=== PATIENT | male | born 1935 | race Caucasian/White ===

== ENCOUNTER 2022-06-28 16:46 | Observation (INO) | payer OTHER ==
--- OUTSIDE RECORDS SUMMARY | 2022-06-28 17:10 | XMS REPORT | Continuity of Care Document ---
:1935 Author Organization [facility] t Address [address] [place] [address] Care Team Providers Name Role Phone Claude Dempsey MD Primary Care Physician CLAUDE DEMPSEY Attending Clinician Unavailable YONATHAN BRASHER Attending Clinician Unavailable Osiris Buchanan MA Attending Clinician Unavailable Carloz Major Attending Clinician Unavailable KELSY RUSS Attending Clinician Unavailable Yonathan Brasher MD Attending Clinician Carloz Major Admitting Clinician Unavailable Payers Payer Name Policy Type Policy Number Effective Date Expiration Date S raiza AETNA MEDICARE PPO [id number] 2021 00:00:00 MEDICARE PLAN PPO [id number] MEDICARE PART B - [id number] MEDICARE Problems Condition Condition Condition Status Onset Resolution Last Treating Co mments Source Name Details Category Date Date Treatment Clinician Date 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 12-08 He alth s s 00:00: 00 Malaise Malaise Disease Active [facility] and and 12-08 Health fatigue fatigue 00:00: 00 Abnormal Abnormal Disease Active 2020-09 [facility] chest chest 0-19 Health x-ray x-ray 00:00: 00 Anemia, Anemia, Disease Active 2020-09 [facility] mild mild 0-19 Health 00:00: 00 Benign Benign Disease Active 2020-09 [facility] essential essential 0-19 Heal th hypertensi hypertensi 00:00: on on 00 BPH BPH Disease Active 2020-09 [facility] without without 0-19 Health urinary urinary 00:00: obstructio obstructio 00 n n Elevated Elevated Disease Active 2020-09 [facility] prostate prostate 019 Health specific specific 00:00: antigen antigen 00 (PSA) (PSA) 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 0-19 He alth yceridemia yceridemia 00:00: 00 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 0 Health to to 00:00: 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 0 He alth ia ia 00:00: 00 Other iron Other iron Disease Active 2020-09 U T deficiency deficiency 0 He alth anemia anemia 00:00: 00 Prediabete Prediabete Disease Active 2020-09 U T s s 0 Health 00:00: 00 Rising PSA Rising PSA Disease Active 2020-09 U T level level 0 Health 00:00: 00 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 9-30 College dysfunctio dysfunctio 00:00: of n n 00 Medicin e After-zahra After-zahra Disease Active [facility] with ract with 3-02 [facility] vision vision 00:00: of obscured obscured 00 Medici n of both of both e eyes eyes Pseudophak Pseudophak Disease Active [facility] ia, right ia, right 2-07 [facility] eye eye 00:00: of 00 Medicin e Pseudophak Pseudophak Disease Active [facility], left ia, left 1-10 Colleg e eye eye 00:00: of 00 Medicin e Allergies, Adverse Reactions, Alerts Allergy Allergy Status Severity Reaction(s) Onset Inactive Treating Comm ents Source Name Type Date Date Clinician No Known DA Active [facility]ie 2[facility]14 Clear s 00:00: Rodriguez 00 [facility] No Known DA Active U 2005-09 [facility] [place] [facility] No Known DA Active [facility] 2005-09 [facility] Drug 0-31 [place] [facility] No Known DA Active U 2005- [facility] Food 0-31 [place] [facility] 00:[facility] No Known DA Active U 2005-09 [facility] Other 0-31 [place] [facility] 00:[facility] No Known DA Active U 2005- [facility] Drug 4-05 [place] [facility] 00:[facility] Social History Social Habit Start Date Stop Date Quantity Comments Source Exposure to Not sure [facility] SARS-CoV-2 (event) Alcohol intake 2021-12-08 2021-12-08 1 /d [facility] 00:00:00 00:00:00 Tobacco use and 2021-06-23 2021-06-23 Smokeless tobacco [facility] exposure 00:00:00 00:00:00 non-user Tobacco Comment 2013-08-15 2013-08-15 stopped 30 yrs [facility] 00:00:00 00:00:00 ago of Medicine Sex Assigned At [birth year] [facility] 00:00:00 00:00:00 Smoking Status Start Date Stop Date Source Ex-smoker 2021-06-23 00:00:00 2021-06-23 00:00:00 [facility] Medications Ordered Filled Start Stop Current Ordering Indication Dosage Frequency Signature Comments Components Source Medication Medication Date Date Medication? Clinician (SIG) Name Name potassium Yes 20meq QD Take 20 [facility] chloride CR 4-07 mEq by Health (Klor-Con 15:29: mouth 1 M20) 20 MEQ 02 (one) time ER tablet each day. Do not crush or chew. furosemide Yes QD Take by [facility] (Lasix) 20 4-07 mouth 1 Health MG tablet 15:29: (one) time 02 each day. potassium Yes 20meq QD Take 20 UT chloride CR 4-07 mEq by Health (Klor-Con 15:29: mouth 1 M20) 20 MEQ 02 (one) time ER tablet each day. Do not crush or chew. furosemide Yes QD Take by UT (Lasix) 20 4-07 mouth 1 Health MG tablet 15:29: (one) time 02 each day. levothyroxi Yes [id number] TAKE 1 UT ne 3-20 TABLET BY [facility] (Synthroid, 00:00: MOUTH Levoxyl) 00 DAILY 125 MCG DUE FOR tablet APPOINTMEN T/BLOODWOR K IN DECEMBER levothyroxi Yes [id number] TAKE 1 UT ne 3-20 TABLET BY [facility] (Synthroid, 00:00: MOUTH Levoxyl) 00 DAILY 125 MCG DUE FOR tablet APPOINTMEN T/BLOODWOR K IN DECEMBER metFORMIN 2021- No [id number] TAKE 1 UT (Glucophage 3-20 06-19 TABLET BY alth ) 500 MG 00:00: 04:59 MOUTH tablet 00 :00 EVERY DAY metFORMIN 2021- No [id number] TAKE 1 UT (Glucophage 3-20 06-19 TABLET BY alth ) 500 MG 00:00: 04:59 MOUTH tablet 00 :00 EVERY DAY simvastatin Yes [id number] TAKE 1 UT (Zocor) 40 2-25 TABLET BY Heal th MG tablet 00:00: MOUTH 00 EVERY DAY. PATIENT NEEDS BLOODWORK IN DECEMBER simvastatin Yes [id number] TAKE 1 UT (Zocor) 40 2-25 TABLET BY Heal th MG tablet 00:00: MOUTH 00 EVERY DAY. PATIENT NEEDS BLOODWORK IN DECEMBER lisinopril Yes [id number] TAKE 1 UT 20 MG 2-03 TABLET BY Health tablet 00:00: MOUTH 00 EVERY DAY DIRECTED lisinopril Yes [id number] TAKE 1 UT 20 MG 2-03 TABLET BY Health tablet 00:00: MOUTH 00 EVERY DAY DIRECTED sildenafil 2020-09 Yes [id number] TAKE 1 UT (Viagra) 2-21 TABLET 1 Health 100 MG 00:00: HOUR PRIOR tablet 00 TO ACTIVITY NEEDED sildenafil 2020-09 Yes [id number] TAKE 1 UT (Viagra) 2-21 TABLET 1 Health 100 MG 00:00: HOUR PRIOR tablet 00 TO ACTIVITY NEEDED docusate 2018-09 Yes 100mg Q2D Take 100 UT sodium 0-29 mg by [facility] (Colace) 00:00: mouth 100 MG 00 every capsule other day. Ferrous 2018-09 Yes 1{tbl} Q2D Take 1 UT Sulfate 0-29 tablet by Health Dried ER 00:00: mouth (Slow Iron) 00 every 160 (50 Fe) other day. MG tablet controlled- release docusate 2018-09 Yes 100mg Q2D Take 100 UT sodium 0-29 mg by [facility] (Colace) 00:00: mouth 100 MG 00 every capsule other day. Ferrous 2018-09 Yes 1{tbl} Q2D Take 1 UT Sulfate 0-29 tablet by Health Dried ER 00:00: mouth (Slow Iron) 00 every 160 (50 Fe) other day. MG tablet controlled- release simvastatin 2018-09 Yes 40mg Take 40 mg [facility] (ZOCOR) 40 0-25 by mouth Colle [facility] MG tablet 19:17: every of 41 evening. Medicin e lisinopril 2018-09 Yes 20mg Take 20 mg [facility] (PRINIVIL, 0-25 by mouth [facility] ZESTRIL) 20 19:17: daily. of MG tablet 41 Medicin e LEVOTHYROXI 2018-09 Yes [facility] NE SODIUM 0-25 [place] 19:17: of 41 Medicin e hydrochloro 2018-09 Yes 25mg Take 25 mg [facility] thiazide 0-25 by mouth [place] (HYDRODIURI 19:17: daily. of L) 25 MG 41 Medicin tablet e XARELTO 15 2018-09 Yes 1{tbl} Take 1 Tab [facility] MG TABS 0-08 by mouth [place] 00:00: daily. of 00 Medicin e levothyroxi Yes TAKE 1 [facility] ne 9-23 TABLET BY [place] (SYNTHROID) 00:00: MOUTH of 125 MCG 00 EVERY DAY Medicin tablet e sildenafil Yes TAKE 1 [facility] citrate 8-22 TABLET 1 [place] (VIAGRA) 00:00: HOUR PRIOR of 100 MG 00 TO Medicin tablet ACTIVITY e NEEDED metformin Yes TAKE 1 [facility] (GLUCOPHAGE 8-07 TABLET BY Col lege ) 500 MG 00:00: MOUTH of tablet 00 EVERY DAY Medicin e rivaroxaban 2016-09 Yes TAKE 1 UT (Xarelto) 0-18 TABLET Health 15 MG 00:00: DAILY tablet 00 rivaroxaban 2016-09 Yes TAKE 1 UT (Xarelto) 0-18 TABLET Health 15 MG 00:00: DAILY tablet 00 Immunizations Ordered Immunization Filled Immunization Date Status Commen ts Source Name Name COVID-19 Moderna & 2020-10-08 Completed [facility] Over Vaccination 00:00:00 COVID-19 Moderna & 2020-10-08 [facility] Over Vaccination 00:00:00 COVID-19 Moderna 18 & 2020-09-10 [facility]pleted [facility] Vaccination 00:00:00 COVID-19 Moderna 18 & 2020-09-10 [facility]pleted [facility] Vaccination 00:00:00 Zoster, Recombinant 2020-07-05 Completed [facility] 00:00:00 Zoster, Recombinant 2020-07-05 Completed [facility] 00:00:00 Tdap 2020-06-23 [facility] 00[facility]00:00 Tdap 2020-06-23 [facility] 00:00:00 Influenza, injectable, 2020-05-24 [facility] quadrivalent, 00:00:00 preservative free (afluria, fluarix, flulaval, fluzone) Influenza, injectable, 2020-05-24 [facility] quadrivalent, 00:00:00 preservative free (afluria, fluarix, flulaval, fluzone) Zoster, Recombinant 2019-10-30 Completed [facility] 00:00:00 Zoster, Recombinant 2019-10-30 Completed [facility] 00:00:00 Pneumococcal 2019-06-23 [facility] Polysaccharide PPV23 00:00:00 Pneumococcal 2019-06-23 [facility] Polysaccharide PPV23 00:00:00 Influenza, seasonal, 2019-06-03 [facility] injectable 00:00:00 Influenza, seasonal, 2019-06-03 [facility] injectable 00:00:00 Influenza, High Dose 2018-06-21 [facility] Seasonal (fluzone) 00:00:00 Influenza, High Dose 2018-06-21 [facility]pleted [facility] Seasonal (fluzone) 00:00:00 Pneumococcal Conjugate 2017-07-05 [facility] PCV 13 00:00:00 Pneumococcal Conjugate 2017-07-05 [facility] PCV 13 00:00:00 Influenza, High Dose 2017-06-04 [facility]pleted [facility] (fluzone) 00:00:00 Influenza, High Dose 2017-06-04 [facility]pleted [facility] (fluzone) 00:00:00 Tdap 2009-12-14 [facility] 00:00:00 Tdap 2009-12-14 [facility] 00:00:00 Zoster, live 2009-06-20 [facility] 00:00:00 micah Adhikari 2009-06-20 Completed [facility] 00:00:00 Vital Signs Vital Name Observation Time Observation Value Comments Source Systolic blood pressure 2021-12-08 16:42:00 128 mm[Hg] [facility] Diastolic blood pressure 2021-12-08 16:42:00 82 mm[Hg] [facility] Body temperature 2021-12-08 16:42:00 36.33 [place] [facility] Body height 2021-12-08 16:42:00 167.6 cm [facility] Body weight 2021-12-08 16:42:00 84.823 kg [facility] BMI 2021-12-08 16:42:00 [facility] This [facility] has no known procedures. Plan of Care Planned Activity Planned Date Details Comments Source Future Scheduled Test MEDICARE AWV [code = [facility] MEDICARE AWV] Medicine Future Scheduled Test TETANUS SHOT (ADULT) [facility] [code = TETANUS SHOT Medicin e (ADULT)] Future Scheduled Test FALL SCREEN [code = [facility] FALL SCREEN] Medicine Future Scheduled Test PNEUMOVAX >=65 [facility] (PPSV23) [code = Medicine PNEUMOVAX >=65 (PPSV23)] Future Scheduled Test PREVNAR >= 65 (PCV13) [facility] [code = PREVNAR >= 65 Medici ne (PCV13)] Future Scheduled Test FLU VACCINE > 6 [facility] MONTHS [code = FLU Medicine VACCINE > 6 MONTHS] Encounters Start End Encounter Admission Attending Care Care Encounter Source Date/Time Date/Time Type Type Clinicians Facility Department ID 2022-09-20 2022-09-20 Outpatient NILA TAMPA [facility] [id number] [place] 10:30:00 10:30:00 [facility] 2022-01-04 2022-01-04 Outpatient EYAD [facility] [id number] [facility] 14:39:12 16:33:14 YONATHAN naranjo of Medicin e 2021-12-26 2021-12-26 Telephone Osiris Buchanan [id number] [place] 00:00:00 00:00:00 Osiris Buchanan [id number] [facility] [id number] [id number] 2021-12-08 2021-12-08 Office JONNY Dempsey [id number] [place] 11:00:00 11:15:00 Visit Claude MLILAN [id number] He alth 9.2.7.2.686 [id number] 2021-10-17 2021-10-17 Outpatient Pedrito HCACL LABO [id number] [facility] 15:20:00 15:20:00 Carloz 73 [facility] 2021-10-17 2021-10-17 Outpatient DANIELLE Major HCATO HCATO [id number] [facility] 10:16:00 10:16:00 Carloz 61 [facility] 2021-10-17 2021-10-17 Outpatient BURAK HenriquezTO RADI [id number] [facility] 09:53:00 09:53:00 Carloz 22 [facility] 2021-08-23 2021-08-23 RefJONNY Montaño [id number] [place] 00:00:00 00:00:00 Claude MILLAN [id number] He alth 9.2.7.2.686 [id number] 2021-07-26 2021-07-26 Emergency KELSY RUSS [facility] [id number] [place] 00:00:00 00:00:[address] 2021-07-25 2021-07-25 JONNY Chaudhry [id number] [place] 00:00:00 00:00:00 Claude MILLAN [id number] He alth 9.2.7.2.686 [id number] 2021-06-23 2021-06-23 Office JONNY Dempsey [id number] [place] 10:01:59 14:15:39 Visit Claude MILLAN [id number] He alth 9.2.7.2.686 [id number] 2019-06-27 2019-06-27 Office EYAD Brasher [id number] [place] [address] 13:45:21 13:50:21 Visit Yonathan Tucker AMBULATOR 350.1.13.21 College Y 0.2.7.2.686 of [id number] Medi tahir 300 e Results Test Description Test Time Test Comments Results Result Comments Source SYNOVIAL FLD CELL CT/DIFF 2021-10-17 18:56:00 Test Item Value Reference Range Interpretation Comme nts SYNOVIAL FLD COLOR (test LIGHT YELLOW LT. YELLOW code = COLSY) SYNOVIAL FLD APPEARANCE CLOUDY CLEAR A (test code = APPSY) SYNOVIAL FLD VOLUME (test 1 mL code = VOLSY) SYNOVIAL FLD WBC (test 628.000 /MM3 0-200 H code = WBCSY) SYNOVIAL FLD RBC (test 1000.000 /mm3 0-2 H NOTE : An automated method is now code = RBCSY) being used to determinesynovial fluid WBC and R BC counts. The differential wi llstill be performed manua lly. SYNOVIAL FLD POLY (test 4 % 0-25 N code = POLYSY) SYNOVIAL FLD LYMPHOCYTE 81 % 0-78 H (test code = LYMPHSY) SYNOVIAL FLD MONOCYTE 14 % 0-71 N (test code = MONOSY) SYNOVIAL FLD OTHER CELL SEE BELOW SYNO VIAL LINING CELL: 1 (test code = OTHERSY) SPECIMEN COMMENT: LEFT KNEE ASPIRATION, 10-17-21 DR CORREA- XR FLUORO NDL 2021-10-17 16:37:00 [facility] 1935 Sex: M Patient Name: MARK ANTHONY SALCIDO Unit No: [id number] EXAMS: CPT CODE: [id number] XR FLUORO NDL [id number] FLUOROSCOPICALLY GUIDED ASPIRATION OF THE LEFT KNEE COMMENT: After informed consent was obtained aneedle was placed in the knee joint with fluoroscopic guidance. Its position was confirmed with an AP radiograph. 0.1 minutes of fluoroscopy time was utilized. 9 mL of clear fluid was aspirated and sent for analysis. No immediate complications were encountered. at 1637 Reported and signed by: Isiah Correa MD CC: Carloz Major Technologist: Tash Zavala RT.(R) Transcribed D/ (1087) [email or web address] [facility] NAME: MARK ANTHONY SALCIDO [address] [facility] PHYS: Carloz Gallegos MD : 1935 AGE: 86 SEX: M [place] [address] LOC: Y.LAB PHONE #: [phone] EXAM DATE: 10/17/2021 STATUS: REG CLI FAX #: [phone] RAD #: [id number] D/C DT PAGE 1 Signed Report Patient Name: MARK ANTHONY SALCIDO Unit No: [id number] EXAMS: CPT CODE: [id number] XR FLUORO NDL [id number] (Continued) Orig Print D/T: S: 10/17/2021 (1640) [facility] NAME: MARK ANTHONY SALCIDO [address] [facility] PHYS: Carloz Gallegos MD : 1935 AGE: 86 SEX: M [place] [address] LOC: Y.LAB PHONE #: [phone] EXAM DATE: 10/17/2021 STATUS: REG CLI FAX #: [phone] RAD #: [id number] D/C DT PAGE 2 Signed Report- XR FLUORO [id number] 16:37:00 [facility] : 1935 Sex: M Patient Name: MARK ANTHONY SALCIDO Unit No: [id number] EXAMS: CPT CODE: [id number] XR FLUORO NDL 68775 FLUOROSCOPICALLY GUIDED ASPIRATION OF THE LEFT KNEE COMMENT: After informed consent was obtained aneedle was placed in the knee joint with fluoroscopic guidance. Its position was confirmed with an AP radiograph. 0.1 minutes of fluoroscopy time was utilized. 9 mL of clear fluid was aspirated and sent for analysis. No immediate complications were encountered. at 1637 Reported and signed by: Isiah Correa MD CC: Carloz HayesiaTechnologist: RT Jose Antonio.(R) Transcribed D/ (9427) tELIJAHL [facility] NAME: MARK ANTHONY SALCIDO [address] [place] [address] PHYS: Carloz Gallegos MD : 1935 AGE:86 SEX: M [place] [address] LOC: Y.RAD PHONE #: [phone] EXAM DATE: 10/17/2021 STATUS: DEP CLI FAX #: [phone] RAD #: [id number] D/C DT PAGE 1 Signed Report Patient Name: MARK ANTHONY SALCIDO Unit No: [id number] EXAMS: CPT CODE: [id number] XR FLUORO NDL 12475 (Continued) Orig Print D/T: S: 10/17/2021 (1640) [facility] NAME: MARK ANTHONY SALCIDO [address] [place] [address] PHYS: Carloz Gallegos MD : 1935 AGE: 86 SEX: M [place] [address] LOC: Y.RAD PHONE #: [phone] EXAM DATE: 10/17/2021 STATUS: DEP CLI FAX #: [phone] RAD #: [id number] D/C DT PAGE 2 Signed ReportCBC W/AUTO DIFF 2021-10-17 12:26:00 Test Item Value Reference Range Interpretation Comments WHITE BLOOD CELL (test code = WBC) 6.4 K/mm3 5.7-10.5 N RED BLOOD CELL (test code = RBC) 4.55 M/mm3 4.2-5.4 N HEMOGLOBIN (test code = HGB) 13.9 g/dL 12-16 N HEMATOCRIT (test code = HCT) 41.0 % 37-47 N MEAN CELL VOLUME (test code = MCV) 90 fL 80-98 N MEAN CELL HGB (test code = MCH) 30.5 pg 27-34 N MEAN CELL HGB CONCENTRATION (test 33.9 g/dL 30.8-34.1 N code = MCHC) RED CELL DISTRIBUTION WIDTH (test 13.5 % 11-16 N code = RDW) PLT (test code = PLT) 216 K/mm3 130-400 N MEAN PLATELET VOLUME (test code = 10.0 fL 8.9-12.1 N MPV) NEUTROPHIL % (test code = NT%) 72.2 % 45-70 H LYMPHOCYTE % (test code = LY%) 16.2 % 20-40 L MONOCYTE % (test code = MO%) 8.6 % 3-10 N EOSINOPHIL % (test code = EO%) 1.9 % 1-5 N BASOPHIL % (test code = BA%) 0.5 % 0.0-1.1 N NEUTROPHIL # (test code = NT#) 4.59 K/mm3 2.00-7.50 N LYMPHOCYTE # (test code = LY#) 1.03 K/mm3 1.50-4.00 L MONOCYTE # (test code = MO#) 0.55 K/mm3 0.2-0.8 N EOSINOPHIL # (test code = EO#) 0.12 K/mm3 0.04-0.4 N BASOPHIL # (test code = BA#) 0.03 K/mm3 0.02-0.10 N MANUAL DIFF REQUIRED (test code = NO MANUAL DIFF MDIFF) NUCLEATED RED BLOOD CELL (test 0 % 0-0 N code = NRBC) SED [id number] 12:26:00 Test Item Value Reference Range Interpretation Comments SED RATE (test code = SEDW) 6 mm/hr 0-15 N C REACTIVE [id number] 11:50:00 Test Item Value Reference Range Interpretation Comments C REACTIVE PROTEIN (test code = < 0.2 mg/dL <0.9 CRP)
[2022-06-28 18:26] LABS: Hematocrit 42.2 % (39.6-49.0); Lymphocytes % 14.3 % (15.3-44.8); MPV 8.5 fL (7.6-11.3)
--- NOTE | 2022-06-28 18:49 | RAD REPORT ---
EXAM DESCRIPTION: CT - Head Brain Wo Cont - 06/28/2022 6:29 pm CLINICAL HISTORY: headache COMPARISON: Head Brain Wo Cont dated 06/09/2022No comparisons TECHNIQUE: Axial 5 mm thick images of the head were obtained without IV contrast. All CT scans are performed using dose optimization technique as appropriate and may include automated exposure control or mA/KV adjustment according to patient size. FINDINGS: No intracranial hemorrhage, mass, edema or shift of mid-line structures. No acute infarcti on changes seen. No cortical edema or sulcal effacement. Moderate severity atrophy present with ventr icles in proportion. Moderate chronic ischemic change seen throughout the cerebral white matter. Manjula rial calcifications are present. Mastoid air cells and visualized portions of the paranasal sinuses are clear. No acute bony findings. IMPRESSION: Moderate severity atrophy moderate chronic ischemic change are present. No acute intracr anial finding
--- NOTE | 2022-06-28 18:55 | RAD REPORT ---
EXAM DESCRIPTION: RAD - Chest Single View - 06/28/2022 6:49 pm CLINICAL HISTORY: CHEST PAIN COMPARISON: None TECHNIQUE: AP portable chest image was obtained 06/28/2022 6:49 pm . FINDINGS: No peripheral mass consolidation. Interstitial markings are mildly prominent probably base line. Cardiomegaly is present without vascular engorgement. No measurable pleural effusion and no pne umothorax. No acute bony abnormality seen. No acute aortic findings suspected. IMPRESSION: Mildly prominent interstitial pattern suspected to be baseline. Cardiomegaly without other findings of significant failure or volume overload.
[2022-06-28 19:04] LABS: Albumin 4.1 g/dL (3.4-5.0); Bilirubin Direct 0.2 mg/dL (0-0.2); Bilirubin Total 0.6 mg/dL (0.2-1.0); Magnesium 2.2 mg/dL (1.8-2.4); Potassium 3.8 mmol/L (3.5-5.1); Protein, Total 7.2 g/dL (6.4-8.2); Troponin High Sensitivity 12.8 pg/mL (<58.9)
--- NOTE | 2022-06-28 19:19 | ER ---
Nurse's Notes [facility] Name: Lauri Lambert Age: 87 yrs Sex: Male : 1935 Arrival Date: 06/28/2022 Time: 16:52 Bed 17 Private MD: Diagnosis: Essential (primary) hypertension;Transient cerebral ischemic attack, unspecified;Bradycardia, unspecified Presentation: 06/28 17:12 Chief complaint: Patient states: High blood pressure x 1 day. Pt reports having an ld1 episode of left arm numbness. Upon arrival to ER pt denies numbness/pain to left arm. Coronavirus screen: At this time, the client does not indicate any symptoms associated with coronavirus-19. Ebola Screen: No symptoms or risks identified at this time. Initial Sepsis Screen: Does the patient meet any 2 criteria? No. Patient's initial sepsis screen is negative. Does the patient have a suspected source of infection? No. Patient's initial sepsis screen is negative. Risk Assessment: Do you want to hurt yourself or someone else? Patient reports no desire to harm self or others. Onset of symptoms was June 28, 2022. 17:12 Method Of Arrival: Ambulatory ld1 17:12 Acuity: HAYDER 3 ld1 Triage Assessment: 17:13 General: Appears in no apparent distress. comfortable, Behavior is calm, cooperative, ld1 appropriate for age. Pain: Denies pain. EENT: No signs and/or symptoms were reported regarding the EENT system. Neuro: Level of Consciousness is awake, alert, obeys commands, Oriented to person, place, time, situation. Cardiovascular: Capillary refill < 3 seconds Patient's skin is warm and dry. Respiratory: Airway is patent Respiratory effort is even, unlabored. GI: Abdomen is flat, obese. : No signs and/or symptoms were reported regarding the genitourinary system. Derm: No signs and/or symptoms reported regarding the dermatologic system. Musculoskeletal: Reports numbness in left arm. Historical: - Allergies: 17:13 No Known Allergies; ld1 - Home Meds: 17:13 Xarelto 15 mg oral tab 1 tab once daily [Active]; ld1 18:27 metformin 500 mg Oral tab 1 tab daily [Active]; docusate sodium 100 mg Oral cap 1 cap db once daily for constipation [Active]; lisinopril 20 mg Oral tab 1 tab once daily [Active]; fexofenadine 180 mg Oral tab 1 tab [Active]; Viagra 100 mg Oral tab 1 tab [Active]; ferrous sulfate 325 mg (65 mg iron) Oral TbEC daily [Active]; rivaroxaban 15 mg oral tab 1 tab once daily [Active]; simvastatin 40 mg Oral tab once daily [Active]; levothyroxine 125 mcg tab 1 tab once daily [Active]; - PMHx: 17:13 Hypertensive disorder; Diabetes mellitus; ld1 - PSHx: 17:13 None; ld1 - Immunization history:: Adult Immunizations up to date, Client reports receiving the 2nd dose of the Covid vaccine. - Social history:: Smoking status: Patient denies any tobacco usage or history of. Patient/guardian denies using alcohol. Screenin:39 Abuse screen: Denies threats or abuse. Denies injuries from another. Nutritional db screening: No deficits noted. Tuberculosis screening: No symptoms or risk factors identified. Fall Risk None identified. No fall in past 12 months (0 pts). No secondary diagnosis (0 pts). No IV (0 pts). Ambulatory Aid- None/Bed Rest/Nurse Assist (0 pts). Gait- Normal/Bed Rest/Wheelchair (0 pts) Mental Status- Oriented to own ability (0 pts). Total Hager Fall Scale indicates No Risk (0-24 pts). Assessment: 17:55 Reassessment: Patient appears in no apparent distress at this time. Patient is alert, db oriented x 3, equal unlabored respirations, skin warm/dry/pink. states came in today due to BP elevated. General: Appears in no apparent distress. comfortable, Behavior is calm, cooperative, appropriate for age, quiet. Pain: Denies pain. Neuro: No deficits noted. Level of Consciousness is awake, alert, obeys commands, Oriented to person, place, time, situation, Appropriate for age. Cardiovascular: No deficits noted. Respiratory: No deficits noted. Airway is patent Respiratory effort is even, unlabored, Respiratory pattern is regular, symmetrical. GI: No deficits noted. No signs and/or symptoms were reported involving the gastrointestinal system. : No deficits noted. No signs and/or symptoms were reported regarding the genitourinary system. EENT: No deficits noted. No signs and/or symptoms were reported regarding the EENT system. Derm: No deficits noted. No signs and/or symptoms reported regarding the dermatologic system. Musculoskeletal: No deficits noted. No signs and/or symptoms reported regarding the musculoskeletal system. 18:30 Reassessment: Patient appears in no apparent distress at this time. Patient and/or db family updated on plan of care and expected duration. Pain level reassessed. Patient is alert, oriented x 3, equal unlabored respirations, skin warm/dry/pink. Patient states feeling better. 19:29 Reassessment: Patient appears in no apparent distress at this time. No changes from lg3 previously documented assessment. Patient and/or family updated on plan of care and expected duration. Pain level reassessed. Patient is alert, oriented x 3, equal unlabored respirations, skin warm/dry/pink. 20:37 Reassessment: Patient appears in no apparent distress at this time. No changes from lg3 previously documented assessment. Patient and/or family updated on plan of care and expected duration. Pain level reassessed. Patient is alert, oriented x 3, equal unlabored respirations, skin warm/dry/pink. Patient states feeling better. Vital Signs: 17:12 BP 218 / 91; Pulse 64; Resp 18; Temp 98.0(TE); Pulse Ox 100% on R/A; Weight 88.45 kg; ld1 Height 5 ft. 8 in. (172.72 cm); Pain 0/10; 17:39 BP 213 / 95; Pulse 44; Resp 18; Pulse Ox 96% on R/A; Pain 0/10; db 17:55 BP 199 / 111; Pulse 50; Resp 20; Pulse Ox 98% ; db 18:30 BP 195 / 75; Pulse 52; Resp 18; Pulse Ox 97% ; db 19:32 BP 205 / 84; Pulse 53; Resp 20; Pulse Ox 97% on R/A; lg3 20:37 BP 184 / 95; Pulse 70; Resp 21; Pulse Ox 98% on R/A; lg3 17:12 Body Mass Index 29.65 (88.45 kg, 172.72 cm) ld1 17:39 Dr. Grey at bedside db Vitals: 17:39 Cardiac Rhythm Assessment Sinus ronak. db NIH Stroke Scale Scores: 17:35 NIHSS Score: 0 ms3 17:45 NIHSS Score: 0 db ED Course: 16:52 Patient arrived in ED. mr 17:13 Triage completed. ld1 17:14 Arm band placed on right wrist. ld1 17:38 Deisi Lee, SAVANA is Primary Nurse. db 17:39 Patient has correct armband on for positive identification. Placed in gown. Bed in low db position. Call light in reach. Side rails up X 1. 17:45 Gustavo Grey DO is Attending Physician. ms3 18:15 Inserted saline lock: 20 gauge in right antecubital area, using aseptic technique. db Blood collected. 18:25 Warm blanket given. db 18:[address] db 18:31 CT Head Brain wo Cont In Process Unspecified. EDMS 18:50 XRAY Chest (1 view) In Process Unspecified. EDMS 19:17 Lauri Katz MD is Hospitalizing Provider. ms3 19:17 Report given to SAVANA Willis. db 19:29 SARS RAPID Sent. lg3 19:42 No provider procedures requiring assistance completed. Patient admitted, IV remains in lg3 place. No redness/swelling at site. Administered Medications: 19:42 Drug: hydrALAZINE 10 mg Route: IVP; Site: right antecubital; lg3 20:40 Follow up: Response: No adverse reaction; Blood pressure is lowered lg3 22:32 Drug: Tylenol 500 mg Route: PO; lg3 23:30 Follow up: Response: (VIS) Vaccine information sheet provided today. Questions and/or lg3 concerns addressed. VIS edition date: Apr 08, 2021.; Marked relief of symptoms Medication: 17:39 VIS not applicable for this client. db Outcome: 19:19 Decision to Hospitalize by Provider. ms3 06/29 16:35 Patient left the ED. mb8 NIH Stroke Scale - NIH Stroke Score Date: 06/28/2022 Time: 17:35 Total Score = 0 1a. Level of Consciousness (LOC) - 0(Alert) 1b. Level of Consciousness (LOC) (Month \T\ Age) - 0(Both) 1c. LOC Commands (Open \T\ Closes Eyes/Embosser Operator) - 0(Both) 2. Best Gaze (Lateral Gaze Paresis) - 0(Normal) 3. Visual Field Loss - 0(No visual loss) 4. Facial Palsy - 0(Normal) 5a. Left Arm: Motor (10-second hold) - 0(No drift) 5b. Right Arm: Motor (10-second hold) - 0(No drift) 6a. Left Leg: Motor (5-second hold - always test supine) - 0(No drift) 6b. Right Leg: Motor (5-second hold - always test supine) - 0(No drift) 7. Limb Ataxia (finger/nose \T\ heel/dean - test with eyes open) - 0(Absent) 8. Sensory Loss (pinprick arms/legs/face) - 0(Normal) 9. Best Language: Aphasia (description/naming/reading) - 0(No aphasia) 10. Dysarthria (speech clarity - read or repeat words) - 0(Normal) 11. Extinction and Inattention (visual/tactile/auditory/spatial/personal) - 0(No abnormality) Initials: ms3 NIH Stroke Scale - NIH Stroke Score Date: 06/28/2022 Time: 17:45 Total Score = 0 1a. Level of Consciousness (LOC) - 0(Alert) 1b. Level of Consciousness (LOC) (Month \T\ Age) - 0(Both) 1c. LOC Commands (Open \T\ Closes Eyes/Embosser Operator) - 0(Both) 2. Best Gaze (Lateral Gaze Paresis) - 0(Normal) 3. Visual Field Loss - 0(No visual loss) 4. Facial Palsy - 0(Normal) 5a. Left Arm: Motor (10-second hold) - 0(No drift) 5b. Right Arm: Motor (10-second hold) - 0(No drift) 6a. Left Leg: Motor (5-second hold - always test supine) - 0(No drift) 6b. Right Leg: Motor (5-second hold - always test supine) - 0(No drift) 7. Limb Ataxia (finger/nose \T\ heel/dean - test with eyes open) - 0(Absent) 8. Sensory Loss (pinprick arms/legs/face) - 0(Normal) 9. Best Language: Aphasia (description/naming/reading) - 0(No aphasia) 10. Dysarthria (speech clarity - read or repeat words) - 0(Normal) 11. Extinction and Inattention (visual/tactile/auditory/spatial/personal) - 0(No abnormality) Initials: db Signatures: Dispatcher [employer] Yessi Jameson Lacie, RN RN lg3 Gustavo Grey, DO DO ms3 Marta Moody RN RN ld1 Rg Rodriguez, RN RN mb8 Deisi Lee RN RN db Corrections: (The following items were deleted from the chart) 06/28 17:15 17:12 Pulse 64bpm; Resp 18bpm; Pulse Ox 100% RA; Temp 98.0F Temporal; 88.45 kg; ld1 Height 5 ft. 8 in.; BMI: 29.6; Pain 0/10; ld1 18:25 17:39 BP 213 / 95; Pulse 44bpm; Resp 18bpm; Pulse Ox 96% RA; Pain 0/10; db db 20:40 20:37 BP 184 / 95; Pulse 70bpm; Resp 21bpm; Pulse Ox 96% RA; lg3 lg3
--- NOTE | 2022-06-28 19:20 | EDPHYS ---
Physician Documentation [facility] Name: Lauri Lambert Age: 87 yrs Sex: Male : 1935 Arrival Date: 06/28/2022 Time: 16:52 Bed 17 Private MD: ED Physician Gustavo Grey HPI: 06/28 19:27 This 87 yrs old Male presents to ER via Ambulatory with complaints of High Blood ms3 Pressure. 19:27 The patient has elevated blood pressure and discovered this at home, with a home ms3 device. Onset: The symptoms/episode began/occurred this morning. Modifying factors: The symptoms are aggravated by nothing, The symptoms are alleviated by nothing. Associated signs and symptoms: Pertinent positives: chest pain, headache, Brief left hand numbness. Severity of symptoms: At its worst the blood pressure was severe, this morning, in the emergency department the blood pressure is unchanged. 87 yo male with pmh of htn, dm presents for htn that was noted this am. Patient states this AM he had left arm numbness. Patient also notes that 10 min prior to arrival in the ED he had right finger numbness. Patient denies alleviating or inciting factors.. Historical: - Allergies: 17:13 No Known Allergies; ld1 - Home Meds: 17:13 Xarelto 15 mg oral tab 1 tab once daily [Active]; ld1 18:27 metformin 500 mg Oral tab 1 tab daily [Active]; docusate sodium 100 mg Oral cap 1 cap db once daily for constipation [Active]; lisinopril 20 mg Oral tab 1 tab once daily [Active]; fexofenadine 180 mg Oral tab 1 tab [Active]; Viagra 100 mg Oral tab 1 tab [Active]; ferrous sulfate 325 mg (65 mg iron) Oral TbEC daily [Active]; rivaroxaban 15 mg oral tab 1 tab once daily [Active]; simvastatin 40 mg Oral tab once daily [Active]; levothyroxine 125 mcg tab 1 tab once daily [Active]; - PMHx: 17:13 Hypertensive disorder; Diabetes mellitus; ld1 - PSHx: 17:13 None; ld1 - Immunization history:: Adult Immunizations up to date, Client reports receiving the 2nd dose of the Covid vaccine. - Social history:: Smoking status: Patient denies any tobacco usage or history of. Patient/guardian denies using alcohol. ROS: 19:27 Constitutional: Negative for fever, and chills. ENT: Negative for injury, pain, and ms3 discharge, Neck: Negative for injury, pain, and swelling. 19:27 Respiratory: Negative for shortness of breath, cough, wheezing, and pleuritic chest pain, Abdomen/GI: Negative for abdominal pain, nausea, vomiting, diarrhea, and constipation, MS/Extremity: Negative for injury and deformity, Skin: Negative for injury, rash, and discoloration. 19:27 Cardiovascular: Positive for chest pain. 19:27 Neuro: Positive for numbness. 19:27 All other systems are negative. Exam: 18:21 ECG was reviewed by the Attending Physician. ms3 19:27 Constitutional: This is a well developed, well nourished patient who is awake, alert, ms3 and in no acute distress. Head/Face: Normocephalic, atraumatic. ENT: Nares patent. No nasal discharge, no septal abnormalities noted. Tympanic membranes are normal and external auditory canals are clear. Oropharynx with no redness, swelling, or masses, exudates, or evidence of obstruction, uvula midline. Mucous membranes moist. Neck: Trachea midline, no cervical lymphadenopathy. Supple, full range of motion without nuchal rigidity, or vertebral point tenderness. No Meningismus. Chest/axilla: Normal chest wall appearance and motion. Nontender with no deformity. Respiratory: Lungs have equal breath sounds bilaterally, clear to auscultation and percussion. No rales, rhonchi or wheezes noted. No increased work of breathing, no retractions or nasal flaring. Abdomen/GI: Soft, non-tender, with normal bowel sounds. No distension or tympany. No guarding or rebound. No evidence of tenderness throughout. Skin: Warm, dry with normal turgor. Normal color with no rashes, no lesions, and no evidence of cellulitis. Vital Signs: 17:12 BP 218 / 91; Pulse 64; Resp 18; Temp 98.0(TE); Pulse Ox 100% on R/A; Weight 88.45 kg; ld1 Height 5 ft. 8 in. (172.72 cm); Pain 0/10; 17:39 BP 213 / 95; Pulse 44; Resp 18; Pulse Ox 96% on R/A; Pain 0/10; db 17:55 BP 199 / 111; Pulse 50; Resp 20; Pulse Ox 98% ; db 18:30 BP 195 / 75; Pulse 52; Resp 18; Pulse Ox 97% ; db 19:32 BP 205 / 84; Pulse 53; Resp 20; Pulse Ox 97% on R/A; lg3 20:37 BP 184 / 95; Pulse 70; Resp 21; Pulse Ox 98% on R/A; lg3 17:12 Body Mass Index 29.65 (88.45 kg, 172.72 cm) ld1 17:39 Dr. Grey at bedside db NIH Stroke Scale Scores: 17:35 NIHSS Score: 0 ms3 17:45 NIHSS Score: 0 db MDM: 17:35 Differential diagnosis: hypertensive crisis, Malignant HTN, CVA, intracerebral ms3 hemorrhage. Data reviewed: vital signs, nurses notes, lab test result(s), EKG, radiologic studies, and as a result, I will admit patient. Data interpreted: secured entrance monitor: rate is 50 beats/min, rhythm is junctional rhythm, with no ectopy, Interpretation: bradycardia. Counseling: I had a detailed discussion with the patient and/or guardian regarding: the historical points, exam findings, and any diagnostic results supporting the discharge/admit diagnosis, lab results, radiology results, the need for further work-up and treatment in the hospital. ED course: Discussed case with Soy Murcia NP, and he accepts patient on behalf of the hospitalist group. Discussed necessity of admission with patient and his daughters. They understand/ agree with plan. Patient remains in stable condition.. 18:25 Patient medically screened. ms3 06/28 17:59 Order name: Basic Metabolic Panel; Complete Time: 19:06 ms3 06/28 17:59 Order name: CBC with Diff; Complete Time: 19:03 ms3 06/28 17:59 Order name: LFT's; Complete Time: 19:06 ms3 06/28 17:59 Order name: Magnesium; Complete Time: 19:06 ms3 06/28 17:59 Order name: Troponin HS; Complete Time: 19:06 ms3 06/28 19:16 Order name: SARS RAPID ms3 06/29 00:10 Order name: Troponin High Sensitivity EDMS 06/29 02:42 Order name: CBC with Automated Diff EDMS 06/29 02:57 Order name: Basic Metabolic Panel EDMS 06/29 02:57 Order name: Troponin High Sensitivity EDMS 06/29 02:57 Order name: Lipid Profile EDMS 06/29 02:57 Order name: T4 Free EDMS 06/29 02:57 Order name: Magnesium EDMS 06/29 02:57 Order name: Thyroid Stimulating Hormone EDMS 06/28 17:59 Order name: XRAY Chest (1 view); Complete Time: 19:03 ms3 06/28 17:59 Order name: EKG; Complete Time: 18:01 ms3 06/28 17:59 Order name: Cardiac monitoring; Complete Time: 18:23 ms3 06/28 17:59 Order name: EKG - Nurse/Tech; Complete Time: 18:23 ms3 06/28 17:59 Order name: IV Saline Lock; Complete Time: 18:23 ms3 06/28 17:59 Order name: Labs collected and sent; Complete Time: 18:24 ms3 06/28 17:59 Order name: O2 Per Protocol; Complete Time: 18:23 ms3 06/28 17:59 Order name: O2 Sat Monitoring; Complete Time: 18:23 ms3 06/28 17:59 Order name: CT Head Brain wo Cont; Complete Time: 19:03 ms3 06/29 07:31 Order name: US EDMS 06/29 11:19 Order name: MRI EDOH EC:21 Rate is 47 beats/min. Rhythm is regular. QRS [place] is Normal. QRS interval is normal. QT ms3 interval is normal. Clinical impression: No evidence of ischemia. Interpreted by me. Reviewed by me. Administered Medications: 19:42 Drug: hydrALAZINE 10 mg Route: IVP; Site: right antecubital; lg3 20:40 Follow up: Response: No adverse reaction; Blood pressure is lowered lg3 22:32 Drug: Tylenol 500 mg Route: PO; lg3 23:30 Follow up: Response: (VIS) Vaccine information sheet provided today. Questions and/or lg3 concerns addressed. VIS edition date: Apr 08, 2021.; Marked relief of symptoms Disposition Summary: 06/28/22 19:19 Hospitalization Ordered Hospitalization Status: Observation ms3 Provider: Lauri Katz ms3 Condition: Stable ms3 Problem: new ms3 Symptoms: are unchanged ms3 Bed/Room Type: Standard ms3 Location: [facility] ER HOLD(10/26/22 21:00) eb1 Room Assignment: ERHOLD-(06/28/22 21:00) eb1 Diagnosis - Essential (primary) hypertension ms3 - Transient cerebral ischemic attack, unspecified ms3 - Bradycardia, unspecified ms3 Forms: - Medication Reconciliation Form ms3 - SBAR form ms3 NIH Stroke Scale - NIH Stroke Score Date: 06/28/2022 Time: 17:35 Total Score = 0 1a. Level of Consciousness (LOC) - 0(Alert) 1b. Level of Consciousness (LOC) (Month \T\ Age) - 0(Both) 1c. LOC Commands (Open \T\ Closes Eyes/Tenter Frame Operator) - 0(Both) 2. Best Gaze (Lateral Gaze Paresis) - 0(Normal) 3. Visual Field Loss - 0(No visual loss) 4. Facial Palsy - 0(Normal) 5a. Left Arm: Motor (10-second hold) - 0(No drift) 5b. Right Arm: Motor (10-second hold) - 0(No drift) 6a. Left Leg: Motor (5-second hold - always test supine) - 0(No drift) 6b. Right Leg: Motor (5-second hold - always test supine) - 0(No drift) 7. Limb Ataxia (finger/nose \T\ heel/dean - test with eyes open) - 0(Absent) 8. Sensory Loss (pinprick arms/legs/face) - 0(Normal) 9. Best Language: Aphasia (description/naming/reading) - 0(No aphasia) 10. Dysarthria (speech clarity - read or repeat words) - 0(Normal) 11. Extinction and Inattention (visual/tactile/auditory/spatial/personal) - 0(No abnormality) Initials: ms3 NIH Stroke Scale - NIH Stroke Score Date: 06/28/2022 Time: 17:45 Total Score = 0 1a. Level of Consciousness (LOC) - 0(Alert) 1b. Level of Consciousness (LOC) (Month \T\ Age) - 0(Both) 1c. LOC Commands (Open \T\ Closes Eyes/Tenter Frame Operator) - 0(Both) 2. Best Gaze (Lateral Gaze Paresis) - 0(Normal) 3. Visual Field Loss - 0(No visual loss) 4. Facial Palsy - 0(Normal) 5a. Left Arm: Motor (10-second hold) - 0(No drift) 5b. Right Arm: Motor (10-second hold) - 0(No drift) 6a. Left Leg: Motor (5-second hold - always test supine) - 0(No drift) 6b. Right Leg: Motor (5-second hold - always test supine) - 0(No drift) 7. Limb Ataxia (finger/nose \T\ heel/dean - test with eyes open) - 0(Absent) 8. Sensory Loss (pinprick arms/legs/face) - 0(Normal) 9. Best Language: Aphasia (description/naming/reading) - 0(No aphasia) 10. Dysarthria (speech clarity - read or repeat words) - 0(Normal) 11. Extinction and Inattention (visual/tactile/auditory/spatial/personal) - 0(No abnormality) Initials: db Signatures: Dispatcher [employer] EDMS Cory Krause MD MD rn Attema, Lee, CLINICAL HAEMATOLOGIST-C CLINICAL HAEMATOLOGIST-Cla1 Lurdes Oliveira, RN RN eb1 Alba Salgado RN RN lg3 Gustavo Grey, DO DO ms3 Marta Moody, RN RN ld1 Deisi Lee, RN RN db Corrections: (The following items were deleted from the chart) 21:00 19:19 Telemetry/MedSurg (observation) ms3 eb1 21:00 19:19 ms3 eb1
[2022-06-28] MEDS ORDERED: HYDRALAZINE HCL 20 MG/ML VIAL ONE (19:38)
[2022-06-28 19:58] LABS: SARS-CoV-2 Antigen Rapid Res Negative (Negative)
--- NOTE | 2022-06-28 21:54 | P.HP ---
Certification for Inpatient Patient admitted to: Observation With expected LOS: <2 Midnights Patient will require the following post-hospital care: None Practitioner: I am a practitioner with admitting privileges, knowledge of patient current condition, hospital course, and medical plan of care. Services: Services provided to patient in accordance with Admission requirements found in Title 42 Section 412.3 of the Code of Federal Regulations <Soy Murcia - Last Filed: 06/28/22 21:51> Patient History Date of Service: 06/28/22 Reason for admission: Chest pain/paresthesias History of Present Illness: 87-year-old male with history of atrial fibrillation on chronic anticoagulation, hypertension, hyperlipidemia presents the emergency department for left upper extremity paresthesia/chest pain. He reports that earlier today around noon he was driving his vehicle when he began to experience numbness of his left arm, he is not sure if he experienced any chest heaviness or tightness but did mention it when questioned. He was evaluated here in the emergency department his labs were significant for normal initial high-sensitivity troponin EKG showing atrial fibrillation with slow ventricular response rate in the 50s to 60s. He was hypertensive with blood pressures around 170-180 systolic chest x-ray was performed which revealed mildly prominent interstitial pattern suspected to be baseline. Cardiomegaly without other findings significant failure or volume overload. CT head was also performed which demonstrated moderate severity atrophy and moderate chronic ischemic changes are present. No acute intracranial finding. Patient's NIH score currently is 0 he has no focal neurological deficits on exam. ED provider wishes to admit under observation for ACS rule out/possible TIA. - Past Medical/Surgical History -: A. fib -: Hypertension -: Hyperlipidemia -: Prediabetes -: Knee surgery -: Appendectomy Psychosocial/ Personal History: Patient lives at home alone, family visits frequently he ambulates without any assistive devices typically but occasionally uses a cane. - Family History Father -: Cancer - Social History Smoking Status: Never smoker Alcohol use: Yes CD- Drugs: No Caffeine use: Yes Place of Residence: Home <Soy Murcia - Last Filed: 06/28/22 21:51> Date of Service: 06/29/22 <Lauri Katz - Last Filed: 06/29/22 19:25> Review of Systems 10-point ROS is otherwise unremarkable Cardiovascular: Chest Pain Neurological: Numbness, As per HPI <Soy Murcia - Last Filed: 06/28/22 21:51> Physical Examination - Physical Exam General: Alert, In no apparent distress, Oriented x3 HEENT: Atraumatic, PERRLA, Mucous membr. moist/pink, EOMI, Sclerae nonicteric Neck: Supple, 2+ carotid pulse no bruit, No LAD, Without JVD or thyroid abnormality Respiratory: Clear to auscultation bilaterally, Normal air movement Cardiovascular: Regular rate/rhythm, Normal S1 S2 Capillary refill: <2 Seconds Gastrointestinal: Normal bowel sounds, No tenderness Musculoskeletal: No tenderness Integumentary: No rashes Neurological: Normal gait, Normal speech, Normal strength at 5/5 x4 extr, Normal tone, Sensation intact, Cranial nerves 3-12 intact, Normal affect - Studies Laboratory Data (last 24 hrs) 06/28/22 18:15: WBC 7.30, Hgb 14.3, Hct 42.2, Plt Count 183 06/28/22 18:15: Sodium 138, Potassium 3.8, BUN 12, Creatinine 1.25, Glucose 116 H, Magnesium 2.2, Total Bilirubin 0.6, AST 13 L, ALT 19, Alkaline Phosphatase 68 <CarrollmustaphaSoy Jj - Last Filed: 06/28/22 21:51> Assessment and Plan - Plan Assessment: Chest pain rule out ACS Left upper extremity paresthesias that resolved possible TIA Atrial fibrillation on chronic anticoagulation therapy Hypertension Hyperlipidemia Plan: Chest pain rule out ACS: Trend troponins, monitor on telemetry, cardiology consult in place. Will obtain echocardiogram. Appreciate further input from cardiology. Continue patient's Xarelto. He is currently chest pain-free initial troponin was negative. Left upper extremity paresthesias that resolved possible TIA: Echocardiogram, carotid Doppler, MRI brain without contrast ordered and pending. Symptoms resolved lasted for "a few minutes". NIH 0. Atrial fibrillation on chronic anticoagulation therapy: Continue Xarelto, monitor on telemetry. Hypertension: Continue home medications. Hyperlipidemia:Continue home medications. DVT PPX: Continue Xarelto Code status: Full Discharge Plan: Home Plan to discharge in: 24 Hours - Advance Directives Does patient have a Living Will: No Does patient have a Durable POA for Healthcare: No - Code Status/Comfort Care Code Status Assessed: Yes (Full code) Critical Care: No Time Spent Managing Pts Care (In Minutes): 70 <Soy Murcia - Last Filed: 06/28/22 21:51> Physician Review: Patient Assessed, Agree with Above Assessment and Plan <Lauri Katz - Last Filed: 06/29/22 19:25>
[2022-06-28] MEDS ORDERED: ONDANSETRON 4 MG/2 ML VIAL IV PRN (22:24)
[2022-06-28] MEDS ORDERED: ACETAMINOPHEN 500 MG TAB ONE (22:28)
[2022-06-28 22:38] VITALS: O2SAT 98; BMI 29.6
[2022-06-29 02:41] LABS: Hematocrit 38.3 % (39.6-49.0); Lymphocytes % 15.7 % (15.3-44.8); MCV 96.3 fL (80-100); MPV 9.1 fL (7.6-11.3); RBC Red Blood Cell Count 3.98 M/uL (4.33-5.43)
[2022-06-29 02:56] LABS: Potassium 3.5 mmol/L (3.5-5.1); Thyroid Stimulating Hormone 0.998 uIU/mL (0.360-3.740); Troponin High Sensitivity 16.2 pg/mL (<58.9)
[2022-06-29] MEDS ORDERED: LEVOTHYROXINE SOD 0.125 MG TAB PO SCH (06:30)
[2022-06-29] MEDS ORDERED: lisinopriL 20 MG TAB ONE (07:28)
--- NOTE | 2022-06-29 07:31 | RAD REPORT ---
EXAM DESCRIPTION: - CP - 06/28/2022 10:50 pm CLINICAL HISTORY: Chest pain, paresthesias, AF COMPARISON: No comparisons TECHNIQUE: Real-time sonographic evaluation of both carotid systems was performed. Doppler interroga tion was performed with waveform tracing bilaterally. FINDINGS: Normal high resistance waveforms are noted in both external carotid arteries. The common c arotid arteries and internal carotid arteries show normal low resistance waveforms. Hard plaque present at both carotid bifurcations. Peak systolic and end diastolic velocity values and the ICA/CCA ratios are in the non-hemodynamically significant range. Antegrade flow seen in both vertebral arteries. IMPRESSION: Hard plaque at both carotid bifurcations. No evidence of a hemodynamically significant stenosis.
[2022-06-29] MEDS ORDERED: PNEUMOCOCCAL VACCINE 0.5 ML IMVAC ONE (08:00)
[2022-06-29] MEDS ORDERED: lisinopriL 20 MG TAB PO SCH (09:00)
[2022-06-29] MEDS ORDERED: HYDRALAZINE HCL 20 MG/ML VIAL IV ONE ×4 (09:51→14:00)
[2022-06-29] MEDS ORDERED: HYDRALAZINE HCL 20 MG/ML VIAL ONE ×2 (09:59→13:56)
[2022-06-29] MEDS ORDERED: POTASSIUM CL SA 10 MEQ TAB PO ONE (10:00)
--- NOTE | 2022-06-29 11:18 | RAD REPORT ---
EXAM DESCRIPTION: MRI - Brain Wo Cont - 06/29/2022 10:17 am CLINICAL HISTORY: Chest pain, paresthesias, AF COMPARISON: No comparisonsNo comparisons TECHNIQUE: Sagittal T1-weighted images were obtained along with PD/heavily T2-weighted and T2-FLAIR images. Axial DWI and ADC mapping sequences were also obtained along with coronal heavily T2-weighted images were obtained. FINDINGS: No intracranial hemorrhage, mass or acute infarction. There is no edema or shift of midlin e structures. No extra-axial fluid collections. Signal voids are seen as a normal finding in the joseph r intracranial vessels. Mild age advanced cerebral atrophy and chronic small vessel ischemic changes. Partially empty sella, a normal variant. Cerebral atrophy is primarily frontotemporal. Mastoid air cells and paranasal sinuses are clear. IMPRESSION: No acute intracranial abnormality. Specifically, no evidence of acute infarct. Mild placement coordinator narcisa small vessel ischemic changes and cerebral atrophy.
[2022-06-29] MEDS ORDERED: ONDANSETRON 4 MG/2 ML VIAL ONE (12:56)
[2022-06-29] MEDS ORDERED: ACETAMINOPHEN 325 MG TABLET ONE (13:57)
[2022-06-29] MEDS ORDERED: ACETAMINOPHEN 325 MG TABLET PO PRN (14:00)
[2022-06-29 14:06] VITALS: TEMP 97.9
--- NOTE | 2022-06-29 14:17 | ECHO ---
HEIGHT: 5 ft 8 in WEIGHT: 194 lb 15.982 oz DATE OF STUDY: 06/29/[address]: Soy Murcia NP 2-DIMENSIONAL: YES M.MODE: YES DOPPLER: YES COLOR FLOW: YES TDS: PORTABLE: YES DEFINITY: BUBBLE STUDY: DIAGNOSIS: CHEST PAIN CARDIAC HISTORY: CATHERIZATION: SURGERY: PROSTHETIC VALVE: PACEMAKER: MEASUREMENTS (cm) DIASTOLIC (NORMALS) SYSTOLIC (NORMALS) IVSd 1.1 (0.6-1.2) LA Diam 3.8 (1.9-4.0) LVEF 68% LVIDd 4.9 (3.5-5.7) LVIDs 3.0 (2.0-3.5) %FS 38% LVPWd 1.2 (0.6-1.2) Ao Diam 3.0 (2.0-3.7) 2 DIMENSIONAL ASSESSMENT: RIGHT ATRIUM: NORMAL LEFT ATRIUM: ENLARGED RIGHT VENTRICLE: NORMAL LEFT VENTRICLE: NORMAL TRICUSPID VALVE: MILD TRICUSPID REGURGITATION MITRAL VALVE: MITRAL ANNULAR CALCIFICATION WITH MILD MITRAL REGURGITATION PULMONIC VALVE: NORMAL AORTIC VALVE: MILD AORTIC INSUFFICIENCY PERICARDIAL EFFUSION: NONE AORTIC ROOT: NORMAL LEFT VENTRICULAR WALL MOTION: NORMAL DOPPLER/COLOR FLOW: SEE BELOW COMMENTS: NORMAL LEFT VENTRICULAR EJECTION FRACTION 60-65%. NORMAL WALL MOTION. MITRAL ANNULAR CALCIFICATION WITH MILD MITRAL REGURGITATION. MILD TO MODERATE AORTIC INSUFFICIENCY. MILD TRICUSPID REGURGITATION. LEFT ATRIAL ENLARGEMENT. TECHNOLOGIST: PAMELA MACKENZIE
--- NOTE | 2022-06-29 14:31 | EKG ---
Test Date: 2022-06-28 Test Time: 18:21:47 Sail Finisher Hand: KV MEASUREMENT RESULTS: Intervals: Rate: 47 TN: QRSD: 82 QT: 476 QTc: 421 [place]: P: TN: QRS: 44 T: 61 INTERPRETIVE STATEMENTS: Atrial fibrillation with slow ventricular response Septal infarct, age undetermined Abnormal ECG Compared to ECG 06/28/2022 18:20:32 No significant changes Electronically Signed On 06-29-22 14:28:41 CDT by Stoney Enamorado
--- NOTE | 2022-06-29 14:31 | EKG ---
Test Date: 2022-06-28 Test Time: 18:20:32 Ton Container Filler: KV MEASUREMENT RESULTS: Intervals: Rate: 49 CT: QRSD: 80 QT: 476 QTc: 429 [place]: P: CT: QRS: 46 T: 69 INTERPRETIVE STATEMENTS: Atrial fibrillation with slow ventricular response with a competing junctional pacemaker Septal infarct, age undetermined Abnormal ECG No previous ECG available for comparison Electronically Signed On 06-29-22 14:28:48 CDT by Stoney Enamorado
[2022-06-29 16:33] VITALS: BP 148/82
[2022-06-29] MEDS ORDERED: RIVAROXABAN 15 MG TABLET PO SCH (17:00)
--- NOTE | 2022-06-29 18:47 | CON ---
Date of Consultation: 06/29/2022 Reason For Consultation: Elevated blood pressure and chest discomfort. History Of Present Illness: An 87-year-old male with history of atrial fibrillation, on chronic anti coagulation, hypertension, dyslipidemia, presented to the emergency room with left upper extremity pa resthesia and pain that traveled to the left upper chest. Pain has resolved. Denies having any new exertional chest pain. No shortness of breath or diaphoresis. He admitted has bradycardia, heart ra te between 50s and 60s, but no dizziness. No other complaints. Past Medical History: As outlined above in the HPI. Medications: Refer to reconciliation sheet for detailed list. Allergies: NO KNOWN DRUG ALLERGIES. Family History: No premature coronary artery disease or cancer. Social History: Does not smoke or drink. Does not use any drugs. Review of Systems: All systems reviewed and they were negative except what mentioned in HPI. Physical Examination: Vital signs: Reviewed. Head and Neck: Pupils are equal, reactive to light. Intact eye movements. No JVD. No cervical lym phadenopathy. Neck is supple. Thyroid is not enlarged. Lungs: Clear to auscultation bilaterally. No rhonchi, wheezing, or crackles. No accessory muscle u se. Heart: Regular rate and rhythm. No extra sounds. Abdomen: Soft, nontender. Bowel sounds positive. No organomegaly. No masses or hernia. No rigidi ty or rebound. Extremities: No edema, clubbing or cyanosis. Intact pulses. Skin: No rash. Neurologic: Alert, awake, oriented x3. No acute focal deficits appreciated. Investigations: BUN is 11, creatinine 0.93. Cardiac troponins x3 are negative. Hemoglobin 13.1. Assessment And Recommendations: 1.Chest pain, atypical. No acute changes on EKG and cardiac enzymes x3 are negative and he is chest pain-free. The patient can be released and outpatient exercise stress test and echocardiogram. 2.Hypertension urgency, no symptoms. Agree with current regimen of blood pressure medications inclu ding lisinopril. Add amlodipine 5 mg daily and plan to titrate as an outpatient basis. The patient can be released from Cardiology standpoint and follow up to arrange further cardiac workup. SR/MODL Voice ID: [id number] Report ID: [id number]
--- NOTE | 2022-06-29 19:31 | P.DS ---
Admission Date: 06/28/22 Discharge Date: 06/29/22 Disposition: ROUTINE DISCHARGE Discharge Condition: GOOD Reason for Admission: Chest pain/paresthesias Consultations: 1. Cardiology Hospital Course: DIAGNOSES: # Chest Pain - suspect due to Hypertensive Urgency # Chronic Atrial Fibrillation # Hyperlipidemia HOSPITAL COURSE: Mr. Lauri Lambert is a pleasant 87 year old male with a past medical history significant for chronic atrial fibrillation, hypertension, and hyperlipidemia who was admitted to the [facility] on 06/28/2022 for chest pain and left hand parasthesias. He was admitted to the Medicine service. His EKG was reportedly without STEMI criteria. His troponin trend was 12.8 -> 15.2 -> 16.2. His chest x-ray revealed, "mildly prominent interstitial pattern suspected to be baseline. Cardiomegaly without other findings of significant failure or volume overload." His transthoracic echocardiogram revealed, "normal left ventricular ejection fraction 60-65%. Normal wall motion. Mitral annular calcification with mild mitral regurgitation. Mild to moerate aortic insufficiency. Mild tricuspid regurgitation. left atrial enlargement." CT head revealed, "moderate severity atrophy moderate chronic ischemic change are present. No acute intracranial finding." Carotid ultrasound revealed, "hard plaque at both carotid bifurc ations. No evidence of a hemodynamically significant stenosis." MRI brain revealed, "no acute intracranial abnormality. Specifically, no evidence of acute infarct. Mild chronic small vessel ischemic changes and cerebral atrophy." Cardiology was consulted and he was evaluated by Dr. Enamorado. He feels that his symptoms are secondary to hypertensive urgency. Dr. Enamorado has cleared him for discharge with an outpatient prescription for amlodipine and follow-up for an outpatient cardiac stress test. On 06/29/2022, he was seen on rounds and deemed medically stable for discharge. He was discharged with instructions to schedule follow-up appointments with his PCP (Dr. Dotson) and with Cardiology (Dr. Enamorado). He was provided a prescription for amlodipine. He and his family members were given the opportunity to ask questions and reported no further questions. Furthermore, all questions were answered to the best of my ability. A copy of this discharge summary will be sent to the above providers to facilitate continuity of care. Today, I personally spent 25 minutes on his case, of which greater than 50% of the time was spent in patient education, counseling, and coordination of care as described above. Vital Signs/Physical Exam: Temp Pulse Resp BP Pulse Ox 97.9 F 60 18 148/82 H 96 06/29/22 14:05 06/29/22 16:00 06/29/22 12:59 06/29/22 16:00 06/29/22 14:05 General: Alert, In no apparent distress, Oriented x3 HEENT: Atraumatic, PERRLA, Mucous membr. moist/pink, EOMI, Sclerae nonicteric Neck: Supple, JVD not distended Respiratory: Clear to auscultation bilaterally, Normal air movement Cardiovascular: No edema, Regular rate/rhythm, Normal S1 S2, No gallops, No rubs, No murmurs Capillary refill: <2 Seconds Gastrointestinal: Normal bowel sounds, Soft and benign, Non-distended, No tenderness, No rebound, No guarding Musculoskeletal: No clubbing Integumentary: No rashes Neurological: Normal speech, Normal strength at 5/5 x4 extr, Normal tone, Sensation intact, Cranial nerves 3-12 intact, Normal affect Laboratory Data at Discharge: WBC 6.60 K/uL (4.3-10.9) 06/29/22 01:55 Hgb 13.1 g/dL (13.6-17.9) L D 06/29/22 01:55 Hct 38.3 % (39.6-49.0) L 06/29/22 01:55 Plt Count 158 K/uL (152-406) 06/29/22 01:55 Sodium 137 mmol/L (136-145) 06/29/22 01:55 Potassium 3.5 mmol/L (3.5-5.1) 06/29/22 01:55 BUN 11 mg/dL (7-18) 06/29/22 01:55 Creatinine 0.92 mg/dL (0.55-1.3) 06/29/22 01:55 Glucose 100 mg/dL (74-106) 06/29/22 01:55 Magnesium 2.0 mg/dL (1.8-2.4) 06/29/22 01:55 Total Bilirubin 0.6 mg/dL (0.2-1.0) 06/28/22 18:15 AST 13 U/L (15-37) L 06/28/22 18:15 ALT 19 U/L (12-78) 06/28/22 18:15 Alkaline Phosphatase 68 U/L (45-117) 06/28/22 18:15 Triglycerides 55 mg/dL (<150) 06/29/22 01:55 Cholesterol 120 mg/dL (<200) 06/29/22 01:55 HDL Cholesterol 54 mg/dL (40-60) 06/29/22 01:55 Cholesterol/HDL Ratio 2.22 06/29/22 01:55 Home Medications: Amlodipine Besylate 5 mg PO DAILY #30 tab 06/29/22 Levothyroxine [Synthroid*] 0.125 mg PO DAILYAC tab 06/29/22 Rivaroxaban [Xarelto*] 15 mg PO DAILY AT SUPPER 06/29/22 lisinopriL [Prinivil*] 20 mg PO DAILY tab 06/29/22 New Medications: Amlodipine Besylate 5 mg PO DAILY #30 tab Physician Discharge Instructions: 1. Please schedule a follow-up appointment with your PCP (Dr. Dotson) in 3-5 days 2. Please schedule a follow-up appointment with Cardiology (Dr. Enamorado) in 5-7 days - Please keep a log of your blood pressure as we discussed and bring this to your appointment - He may decide to schedule you for a cardiac stress test as an outpatient Diet: AHA Activity: Ad nafisa Followup: CLAUDE DOTSON [OUTSIDE PHYSICIAN] - Stoney Enamorado MD [ACTIVE - CAN ADMIT] - Time spent managing pt's care (in minutes): 25
== END 2022-06-29 16:05 | disposition home or self-care (01) ==
LOC: ER 16:46 → ERHOLD 20:54
PROVIDERS: ADMIT Internal Medicine; ATTEND Internal Medicine
DX: R07.9 Chest pain, unspecified (principal); I16.0 Hypertensive urgency; I48.11 Longstanding persistent atrial fibrillation; I10 Essential (primary) hypertension; E78.5 Hyperlipidemia, unspecified; Z79.01 Long term (current) use of anticoagulants; Z20.822 Contact with and (suspected) exposure to COVID-19
CPT/HCPCS: 93005 ×2; 93306; 85025 ×2; 80048 ×2; 36415; 83735 ×2; 80061; 80076; 84443; 84484 ×3; 84439; 70450; 71045; 93880; 70551; 96374; 99284; 87811; J0360 ×3; J2405; G0378 ×3

== ENCOUNTER 2023-01-17 09:50 | Emergency (ER) | payer OTHER ==
--- OUTSIDE RECORDS SUMMARY | 2023-01-17 09:54 | XMS REPORT | Continuity of Care Document ---
:1935 Author Organization [facility] t Address [address] [place] [address] Care Team Providers Name Role Phone Claude Dempsey MD Primary Care Physician CLAUDE DEMPSEY Attending Clinician Unavailable YONATHAN BRASHER Attending Clinician Unavailable Osiris Buchanan MA Attending Clinician Unavailable Carloz Major Attending Clinician Unavailable KELSY RUSS Attending Clinician Unavailable Yonathan Brasher MD Attending Clinician Carloz Major Admitting Clinician Unavailable Payers Payer Name Policy Type Policy Number Effective Date Expiration Date S ourflavia [employer]ETNA MEDICARE [id number] 2013 2021 PPO 00:00:00 00:00:00 MEDICARE PLAN PPO [id number] - [employer]ET[employer] MEDICARE PART B - [id number] MEDICARE Problems Condition Condition Condition Status Onset Resolution Last Treating Co mments Source Name Details Category Date Date Treatment Clinician Date Abnormal Abnormal Disease Active [facility] glucose glucose 1-10 Health 00:00: 00 Encounter Encounter Disease Active [facility] for for -10 Health long-term long-term 00:00: (current) (current) 00 use of use of medication medication s s 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 [...] 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 0-19 He alth ia ia 00:00: 00 Other iron Other iron Disease Active 2020-09 U T deficiency deficiency 0-19 He alth anemia anemia 00:00: 00 Prediabete Prediabete Disease Active 2020-09 U T s s 0- Health 00:00: 00 Rising PSA Rising PSA Disease Active 2020-09 [facility] T level level 0-19 Health 00:00: 00 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 9-30 College dysfunctio dysfunctio [...] Allergie 2-14 Clear s 00:00: Rodriguez 00 [facility] No Known DA Active U 2005-09 [facility] [place] [facility] No Known DA Active U 2005-09 [facility] Drug 0- [place] Allergie 00:00: [facility]ope [facility] No Known DA Active U 2005-09 [facility] Food 0- [place] Allergie 00:00: [facility]ope [facility] No Known DA Active U 2005-09 [facility] Other 0- [place] Allergie 00:00: Orthope s 00 [facility] No Known DA Active U [facility] Drug 4-05 [place] [facility] 00:00: [facility]ope [facility]ces 00 [facility]osp[facility] Social History Social Habit Start Date Stop Date Quantity Comments Source History of Current smoker [facility] tobacco use Exposure to 2022-09-10 2022-09-20 Not sure [facility] SARS-CoV-2 00:00:00 10:03:00 (event) Alcohol Comment 2022-09-20 2022-09-20 2-6 in one day [facility] 00:00:00 00:00:00 every 6 months Alcohol intake 2022-09-20 2022-09-20 Current drinker [facility] 00:00:00 00:00:00 of alcohol (finding) Tobacco use and 2021-06-23 2021-06-23 Smokeless tobacco [facility] exposure 00:00:00 00:00:00 non-user Tobacco Comment 2013-08-15 2013-08-15 stopped 30 yrs [facility] 00:00:00 00:00:00 ago of Medicine Sex Assigned At [birth year] [facility] 00:00:00 00:00:00 Smoking Status Start Date Stop Date Source Ex-smoker 2021-06-23 00:00:00 2021-06-23 00:00:00 [facility] Medications Ordered Filled Start Stop Current Ordering Indication Dosage Frequency Signature Comments Components Source Medication Medication Date Date Medication? Clinician (SIG) Name Name potassium Yes 10meq QD Take 10 [facility] chloride CR 1-18 mEq by Health (Klor-Con 11:04: mouth 1 M10) 10 MEQ 45 (one) time ER tablet each day. Do not crush or chew. furosemide 2023-0 Yes QD Take by [facility] (Lasix) 20 1-18 mouth 1 Health MG tablet 11:04: (one) time 45 each day. potassium 2023-0 Yes 10meq QD Take 10 [facility] chloride CR 1-18 mEq by Health (Klor-Con 11:04: mouth 1 M10) 10 MEQ 45 (one) time ER tablet each day. Do not crush or chew. furosemide 3-0 Yes QD Take by [facility] (Lasix) 20 1-18 mouth 1 Health MG tablet 11:04: (one) time 45 each day. potassium 2023-0 Yes 10meq QD Take 10 [facility] chloride CR 1-18 mEq by Health (Klor-Con 11:04: mouth 1 M10) 10 MEQ 45 (one) time ER tablet each day. Do not crush or chew. furosemide 3-0 Yes QD Take by [facility] (Lasix) 20 1-18 mouth 1 Health MG tablet 11:04: (one) time 45 each day. potassium 2023-0 Yes 10meq QD Take 10 [facility] chloride CR 1-18 mEq by Health (Klor-Con 11:04: mouth 1 M10) 10 MEQ 45 (one) time ER tablet each day. Do not crush or chew. furosemide 3-0 Yes QD Take by UT (Lasix) 20 1-18 mouth 1 Health MG tablet 11:04: (one) time 45 each day. amLODIPine 2021-09 Yes [id number] TAKE 1 UT (Norvasc) 5 2-21 TABLET BY Hea lth MG tablet 00:00: MOUTH 00 EVERY DAY amLODIPine 2021- Yes [id number] TAKE 1 [facility] (Norvasc) 5 2-21 TABLET BY [facility] MG tablet 00:00: MOUTH 00 EVERY DAY amLODIPine 2021-09 Yes [id number] TAKE 1 UT (Norvasc) 5 2-21 TABLET BY [facility]a lth MG tablet 00:00: MOUTH 00 EVERY DAY amLODIPine 2021-09 Yes [id number] TAKE 1 UT (Norvasc) 5 2-21 TABLET BY Hea lth MG tablet 00:00: MOUTH 00 EVERY DAY metFORMIN 2021-09 2023- No [id number] TAKE 1 UT (Glucophage 128 -27 TABLET BY He alth ) 500 MG 00:00: 05:59 MOUTH tablet 00 :00 EVERY DAY metFORMIN 2021-09- No [id number] TAKE 1 UT (Glucophage 09-30 TABLET BY He alth ) 500 MG 00:00: 05:59 MOUTH tablet 00 :00 EVERY DAY metFORMIN 2021-09- No [id number] TAKE 1 UT (Glucophage 09-30 TABLET BY [facility] ) 500 MG 00:00: 05:59 MOUTH tablet 00 :00 EVERY DAY metFORMIN 2021-09- No [id number] TAKE 1 UT (Glucophage 09-30 TABLET BY [facility] ) 500 MG 00:00: 05:59 MOUTH tablet 00 :00 EVERY DAY furosemide 2021-09 Yes QD Take by UT (Lasix) 20 0-31 mouth 1 Health MG tablet 14:41: (one) time 41 each day. furosemide 2021-09 Yes QD Take by [facility] (Lasix) 20 0-31 mouth 1 Health MG tablet 14:41: (one) time 41 each day. furosemide 2021-09 Yes QD Take by [facility] (Lasix) 20 0-31 mouth 1 Health MG tablet 14:41: (one) time 41 each day. furosemide 2021-09 Yes QD Take by [facility] (Lasix) 20 0-31 mouth 1 Health MG tablet 14:41: (one) time 41 each day. furosemide 2021-09 Yes QD Take by UT (Lasix) 20 0-31 mouth 1 Health MG tablet 14:41: (one) time 41 each day. potassium 2021-09 Yes 20meq QD Take 20 [facility] chloride CR 0-31 mEq by Health (Klor-Con 14:41: mouth 1 M20) 20 MEQ 09 (one) time ER tablet each day. Do not crush or chew. potassium 2021-09 Yes 20meq QD Take 20 [facility] chloride CR 0-31 mEq by Health (Klor-Con 14:41: mouth 1 M20) 20 MEQ 09 (one) time ER tablet each day. Do not crush or chew. potassium 2021-09 Yes 20meq QD Take 20 [facility] chloride CR 0-31 mEq by Health (Klor-Con 14:41: mouth 1 M20) 20 MEQ 09 (one) time ER tablet each day. Do not crush or chew. potassium 2021-09 Yes 20meq QD Take 20 [facility] chloride CR 0-31 mEq by Health (Klor-Con 14:41: mouth 1 M20) 20 MEQ 09 (one) time ER tablet each day. Do not crush or chew. potassium 2021-09 Yes 20meq QD Take 20 UT chloride CR 0-31 mEq by Health (Klor-Con 14:41: mouth 1 M20) 20 MEQ 09 (one) time ER tablet each day. Do not crush or chew. amLODIPine 2021-09 Yes UT (Norvasc) 5 0-27 Health MG tablet 00:00: 00 amLODIPine 2021-09 Yes UT (Norvasc) 5 0-27 Health MG tablet 00:00: 00 amLODIPine 2021-09 Yes UT (Norvasc) 5 0-27 Health MG tablet 00:00: 00 amLODIPine 2021-09 Yes UT (Norvasc) 5 0-27 Health MG tablet 00:00: 00 amLODIPine 2021-09 Yes UT (Norvasc) 5 0-27 Health MG tablet 00:00: 00 simvastatin 2021-09 Yes [id number] TAKE 1 UT (Zocor) 40 0-26 TABLET BY Heal th MG tablet 00:00: MOUTH 00 EVERY DAY. PATIENT NEEDS BLOODWORK IN DECEMBER simvastatin 2021-09 Yes [id number] TAKE 1 UT (Zocor) 40 0-26 TABLET BY Heal th MG tablet 00:00: MOUTH 00 EVERY DAY. PATIENT NEEDS BLOODWORK IN DECEMBER simvastatin 2021-09 Yes [id number] TAKE 1 UT (Zocor) 40 0-26 TABLET BY Heal th MG tablet 00:00: MOUTH 00 EVERY DAY. PATIENT NEEDS BLOODWORK IN DECEMBER simvastatin 2021-09 Yes [id number] TAKE 1 UT (Zocor) 40 0-26 TABLET BY Heal th MG tablet 00:00: MOUTH 00 EVERY DAY. PATIENT NEEDS BLOODWORK IN DECEMBER simvastatin 2021-09 Yes [id number] TAKE 1 UT (Zocor) 40 0-26 TABLET BY Heal th MG tablet 00:00: MOUTH 00 EVERY DAY. PATIENT NEEDS BLOODWORK IN DECEMBER simvastatin 2021-09 Yes [id number] TAKE 1 UT (Zocor) 40 0-26 TABLET BY Heal th MG tablet 00:00: MOUTH 00 EVERY DAY. PATIENT NEEDS BLOODWORK IN DECEMBER simvastatin 2021-09 Yes [id number] TAKE 1 UT (Zocor) 40 0-26 TABLET BY Heal th MG tablet 00:00: MOUTH 00 EVERY DAY. PATIENT NEEDS BLOODWORK IN DECEMBER simvastatin 2021-09 Yes [id number] TAKE 1 UT (Zocor) 40 0-26 TABLET BY Heal th MG tablet 00:00: MOUTH 00 EVERY DAY. PATIENT NEEDS BLOODWORK IN DECEMBER simvastatin 2021-09 Yes [id number] TAKE 1 UT (Zocor) 40 0-26 TABLET BY Heal th MG tablet 00:00: MOUTH 00 EVERY DAY. PATIENT NEEDS BLOODWORK IN DECEMBER sildenafil 2021-09 Yes [id number] TAKE 1 UT (Viagra) 0-06 TABLET 1 Health 100 MG 00:00: HOUR PRIOR tablet 00 TO ACTIVITY NEEDED Strength: 100 mg sildenafil 2021-09 Yes [id number] TAKE 1 UT (Viagra) 0-06 TABLET 1 Health 100 MG 00:00: HOUR PRIOR tablet 00 TO ACTIVITY NEEDED Strength: 100 mg sildenafil 2021-09 Yes [id number] TAKE 1 UT (Viagra) 0-06 TABLET 1 Health 100 MG 00:00: HOUR PRIOR tablet 00 TO ACTIVITY NEEDED Strength: 100 mg sildenafil 2021-09 Yes [id number] TAKE 1 UT (Viagra) 0-06 TABLET 1 Health 100 MG 00:00: HOUR PRIOR tablet 00 TO ACTIVITY NEEDED Strength: 100 mg sildenafil 2021-09 Yes [id number] TAKE 1 UT (Viagra) 0-06 TABLET 1 Health 100 MG 00:00: HOUR PRIOR tablet 00 TO ACTIVITY NEEDED Strength: 100 mg sildenafil 2021-09 Yes [id number] TAKE 1 UT (Viagra) 0-06 TABLET 1 Health 100 MG 00:00: HOUR PRIOR tablet 00 TO ACTIVITY NEEDED Strength: 100 mg sildenafil 2021-09 Yes [id number] TAKE 1 UT (Viagra) 0-06 TABLET 1 Health 100 MG 00:00: HOUR PRIOR tablet 00 TO ACTIVITY NEEDED Strength: 100 mg sildenafil 2021-09 Yes [id number] TAKE 1 UT (Viagra) 0-06 TABLET 1 Health 100 MG 00:00: HOUR PRIOR tablet 00 TO ACTIVITY NEEDED Strength: 100 mg sildenafil 2021-09 Yes [id number] TAKE 1 UT (Viagra) 0-06 TABLET 1 Health 100 MG 00:00: HOUR PRIOR tablet 00 TO ACTIVITY NEEDED Strength: 100 mg levothyroxi Yes [id number] TAKE 1 UT ne 9-19 TABLET BY Health (Synthroid, 00:00: MOUTH Levoxyl) 00 DAILY 125 MCG DUE FOR tablet APPOINTMEN T/BLOODWOR K IN DECEMBER levothyroxi Yes [id number] TAKE 1 UT ne 9-19 TABLET BY Health (Synthroid, 00:00: MOUTH Levoxyl) 00 DAILY 125 MCG DUE FOR tablet APPOINTMEN T/BLOODWOR K IN DECEMBER levothyroxi Yes [id number] TAKE 1 UT ne 9-19 TABLET BY Health (Synthroid, 00:00: MOUTH Levoxyl) 00 DAILY 125 MCG DUE FOR tablet APPOINTMEN T/BLOODWOR K IN DECEMBER levothyroxi Yes [id number] TAKE 1 UT ne 9-19 TABLET BY Health (Synthroid, 00:00: MOUTH Levoxyl) 00 DAILY 125 MCG DUE FOR tablet APPOINTMEN T/BLOODWOR K IN DECEMBER levothyroxi Yes [id number] TAKE 1 UT ne 9-19 TABLET BY Health (Synthroid, 00:00: MOUTH Levoxyl) 00 DAILY 125 MCG DUE FOR tablet APPOINTMEN T/BLOODWOR K IN DECEMBER levothyroxi Yes [id number] TAKE 1 UT ne 9-19 TABLET BY Health (Synthroid, 00:00: MOUTH Levoxyl) 00 DAILY 125 MCG DUE FOR tablet APPOINTMEN T/BLOODWOR K IN DECEMBER levothyroxi Yes [id number] TAKE 1 UT ne 9-19 TABLET BY Health (Synthroid, 00:00: MOUTH Levoxyl) 00 DAILY 125 MCG DUE FOR tablet APPOINTMEN T/BLOODWOR K IN DECEMBER levothyroxi Yes [id number] TAKE 1 UT ne 9-19 TABLET BY Health (Synthroid, 00:00: MOUTH Levoxyl) 00 DAILY 125 MCG DUE FOR tablet APPOINTMEN T/BLOODWOR K IN DECEMBER levothyroxi Yes [id number] TAKE 1 UT ne 9-19 TABLET BY Health (Synthroid, 00:00: MOUTH Levoxyl) 00 DAILY 125 MCG DUE FOR tablet APPOINTMEN T/BLOODWOR K IN DECEMBER lisinopril 2022-0 Yes [id number] TAKE 1 UT 20 MG 7-31 TABLET BY Health tablet 00:00: MOUTH 00 EVERY DAY DIRECTED lisinopril 2022-0 Yes [id number] TAKE 1 UT 20 MG 7-31 TABLET BY Health tablet 00:00: MOUTH 00 EVERY DAY DIRECTED lisinopril 2022-0 Yes [id number] TAKE 1 UT 20 MG 7-31 TABLET BY Health tablet 00:00: MOUTH 00 EVERY DAY DIRECTED lisinopril 2022-0 Yes [id number] TAKE 1 UT 20 MG 7-31 TABLET BY Health tablet 00:00: MOUTH 00 EVERY DAY DIRECTED lisinopril 2022-0 Yes [id number] TAKE 1 UT 20 MG 7-31 TABLET BY Health tablet 00:00: MOUTH 00 EVERY DAY DIRECTED lisinopril 2022-0 Yes [id number] TAKE 1 UT 20 MG 7-31 TABLET BY Health tablet 00:00: MOUTH 00 EVERY DAY DIRECTED lisinopril 2022-0 Yes [id number] TAKE 1 UT 20 MG 7-31 TABLET BY Health tablet 00:00: MOUTH 00 EVERY DAY DIRECTED lisinopril 2022-0 Yes [id number] TAKE 1 UT 20 MG 7-31 TABLET BY Health tablet 00:00: MOUTH 00 EVERY DAY DIRECTED lisinopril 2022-0 Yes [id number] TAKE 1 UT 20 MG 7-31 TABLET BY Health tablet 00:00: MOUTH 00 EVERY DAY DIRECTED potassium 2-0 Yes 20meq QD Take 20 UT chloride CR 4-07 mEq by Health (Klor-Con 15:29: mouth 1 M20) 20 MEQ 02 (one) time ER tablet each day. Do not crush or chew. furosemide 2022-0 Yes QD Take by UT (Lasix) 20 4-07 mouth 1 Health MG tablet 15:29: (one) time 02 each day. potassium 2022-0 Yes 20meq QD Take 20 UT chloride CR 4-07 mEq by Health (Klor-Con 15:29: mouth 1 M20) 20 MEQ 02 (one) time ER tablet each day. Do not crush or chew. furosemide 2022-0 Yes QD Take by UT (Lasix) 20 4-07 mouth 1 Health MG tablet 15:29: (one) time 02 each day. levothyroxi 2022-0 Yes [id number] TAKE 1 UT ne 3-20 TABLET BY [facility] (Synthroid, 00:00: MOUTH Levoxyl) 00 DAILY 125 MCG DUE FOR tablet APPOINTMEN T/BLOODWOR K IN DECEMBER levothyroxi Yes [id number] TAKE 1 UT ne 3-20 TABLET BY [facility] (Synthroid, 00:00: MOUTH Levoxyl) 00 DAILY 125 MCG DUE FOR tablet APPOINTMEN T/BLOODWOR K IN DECEMBER metFORMIN Yes [id number] TAKE 1 U T (Glucophage 3-20 TABLET BY [facility] ) 500 MG 00:00: MOUTH tablet 00 EVERY DAY metFORMIN Yes [id number] TAKE 1 U T (Glucophage 3-20 TABLET BY [facility] ) 500 MG 00:00: MOUTH tablet 00 EVERY DAY metFORMIN Yes [id number] TAKE 1 U T (Glucophage 3-20 TABLET BY [facility] ) 500 MG 00:00: MOUTH tablet 00 EVERY DAY metFORMIN Yes [id number] TAKE 1 U T (Glucophage 3-20 TABLET BY [facility] ) 500 MG 00:00: MOUTH tablet 00 EVERY DAY metFORMIN Yes [id number] TAKE 1 U T (Glucophage 3-20 TABLET BY [facility] ) 500 MG 00:00: MOUTH tablet 00 EVERY DAY metFORMIN 2021-2021- No [id number] TAKE 1 UT (Glucophage 3-20 06-19 TABLET BY [facility] ) 500 MG 00:00: 04:59 MOUTH tablet 00 :00 EVERY DAY metFORMIN 2021-2021- No [id number] TAKE 1 UT (Glucophage 3-20 06-19 TABLET BY [facility] ) 500 MG 00:00: 04:59 MOUTH tablet 00 :00 EVERY DAY simvastatin Yes [id number] TAKE 1 UT (Zocor) 40 2-25 TABLET BY Heal th MG tablet 00:00: MOUTH 00 EVERY DAY. PATIENT NEEDS BLOODWORK IN DECEMBER simvastatin Yes [id number] TAKE 1 UT (Zocor) 40 2-25 TABLET BY Heal th MG tablet 00:00: MOUTH 00 EVERY DAY. PATIENT NEEDS BLOODWORK IN DECEMBER lisinopril Yes [id number] TAKE 1 UT 20 MG 2-03 TABLET BY Health tablet 00:00: MOUTH 00 EVERY DAY DIRECTED lisinopril 2022-0 Yes [id number] TAKE 1 UT 20 MG 2-03 TABLET BY Health tablet 00:00: MOUTH 00 EVERY DAY DIRECTED sildenafil 2020-09 Yes [id number] TAKE 1 UT (Viagra) 2-21 TABLET 1 Health 100 MG 00:00: HOUR PRIOR tablet 00 TO ACTIVITY NEEDED sildenafil 2020-09 Yes [id number] TAKE 1 UT (Viagra) 2-21 TABLET 1 Health 100 MG 00:00: HOUR PRIOR tablet 00 TO ACTIVITY NEEDED docusate 2018-09 Yes 100mg Q2D Take 100 UT sodium 0-29 mg by Health (Colace) 00:00: mouth 100 MG 00 every capsule other day. Ferrous 2018-09 Yes 1{tbl} Q2D Take 1 [facility] Sulfate 0-29 tablet by Health Dried ER 00:00: mouth (Slow Iron) 00 every 160 (50 Fe) other day. MG tablet controlled- release docusate 2018-09 Yes 100mg Q2D Take 100 UT sodium 0-29 mg by [place] (Colace) 00:00: mouth 100 MG 00 every capsule other day. Ferrous 2018-09 Yes 1{tbl} Q2D Take 1 [facility] Sulfate 0-29 tablet by Health Dried ER 00:00: mouth (Slow Iron) 00 every 160 (50 Fe) other day. MG tablet controlled- release docusate 2018-09 Yes 100mg Q2D Take 100 [facility] sodium 0-29 mg by [place] (Colace) 00:00: mouth 100 MG 00 every capsule other day. Ferrous 2018-09 Yes 1{tbl} Q2D Take 1 [facility] Sulfate 0-29 tablet by [place] Dried ER 00:00: mouth (Slow Iron) 00 every 160 (50 Fe) other day. MG tablet controlled- release docusate 2018-09 Yes 100mg Q2D Take 100 UT sodium 0-29 mg by Health (Colace) 00:00: mouth 100 MG 00 every capsule other day. Ferrous 2018-09 Yes 1{tbl} Q2D Take 1 [facility] Sulfate 0-29 tablet by [place] Dried ER 00:00: mouth (Slow Iron) 00 every 160 (50 Fe) other day. MG tablet controlled- release docusate 2018-09 Yes 100mg Q2D Take 100 UT sodium 0-29 mg by Health (Colace) 00:00: mouth 100 MG 00 every capsule other day. Ferrous 2018-09 Yes 1{tbl} Q2D Take 1 [facility] Sulfate 0-29 tablet by Health Dried ER 00:00: mouth (Slow Iron) 00 every 160 (50 Fe) other day. MG tablet controlled- release docusate 2018-09 Yes 100mg Q2D Take 100 UT sodium 0-29 mg by Health (Colace) 00:00: mouth 100 MG 00 every capsule other day. Ferrous 2018-09 Yes 1{tbl} Q2D Take 1 [facility] Sulfate 0-29 tablet by Health Dried ER 00:00: mouth (Slow Iron) 00 every 160 (50 Fe) other day. MG tablet controlled- release docusate 2018-09 Yes 100mg Q2D Take 100 UT sodium 0-29 mg by Health (Colace) 00:00: mouth 100 MG 00 every capsule other day. Ferrous 2018-09 Yes 1{tbl} Q2D Take 1 [facility] Sulfate 0-29 tablet by Health Dried ER 00:00: mouth (Slow Iron) 00 every 160 (50 Fe) other day. MG tablet controlled- release Ferrous 2018-09 Yes 1{tbl} QD Take 1 [facility] Sulfate 0-29 tablet by Health Dried ER 00:00: mouth 1 (Slow Iron) 00 (one) time 160 (50 Fe) each day. MG tablet controlled- release Ferrous 2018-09 Yes 1{tbl} QD Take 1 [facility] Sulfate 0-29 tablet by Health Dried ER 00:00: mouth 1 (Slow Iron) 00 (one) time 160 (50 Fe) each day. MG tablet controlled- release Ferrous 2018-09 Yes 1{tbl} QD Take 1 [facility] Sulfate 0-29 tablet by [place] Dried ER 00:00: mouth 1 (Slow Iron) 00 (one) time 160 (50 Fe) each day. MG tablet controlled- release Ferrous 2018-09 Yes 1{tbl} QD Take 1 [facility] Sulfate 0-29 tablet by Health Dried ER 00:00: mouth 1 (Slow Iron) 00 (one) time 160 (50 Fe) each day. MG tablet controlled- release docusate 2018-09- No 100mg Q2D Take 100 UT sodium 0-29 01-18 mg by Health (Colace) 00:00: 00:00 mouth 100 MG 00 :00 every capsule other day. docusate 2018-09- No 100mg Q2D Take 100 UT sodium 0-29 01-18 mg by Health (Colace) 00:00: 00:00 mouth 100 MG 00 :00 every capsule other day. docusate 2018-09- No 100mg Q2D Take 100 UT sodium 0-29 01-18 mg by Health (Colace) 00:00: 00:00 mouth 100 MG 00 :00 every capsule other day. docusate 2018-09- No 100mg Q2D Take 100 UT sodium 0-29 01-18 mg by Health (Colace) 00:00: 00:00 mouth 100 MG 00 :00 every capsule other day. simvastatin 2018-09 Yes 40mg Take 40 mg [facility] (ZOCOR) 40 0-25 by mouth Colle ge MG tablet 19:17: every of 41 evening. Medicin e lisinopril 2018-09 Yes 20mg Take 20 mg [facility] (PRINIVIL, 0-25 by mouth Colle ge ZESTRIL) 20 19:17: daily. of MG tablet 41 Medicin e LEVOTHYROXI 2018-09 Yes [facility] NE SODIUM 0-25 [place] 19:17: of 41 Medicin e hydrochloro 2018-09 Yes 25mg Take 25 mg [facility] thiazide 0-25 by mouth [place] (HYDRODIURI 19:17: daily. of L) 25 MG 41 Medicin tablet e XARELTO 15 2018-09 Yes 1{tbl} Take 1 Tab [facility] MG TABS 0-08 by mouth [place] 00:00: daily. of 00 Medicin e levothyroxi Yes TAKE 1 [facility] ne 9-23 TABLET BY [place] (SYNTHROID) 00:00: MOUTH of 125 MCG 00 EVERY DAY Medicin tablet e sildenafil Yes TAKE 1 [facility] citrate 8-22 TABLET 1 [place] (VIAGRA) 00:00: HOUR PRIOR of 100 MG 00 TO Medicin tablet ACTIVITY e NEEDED metformin Yes TAKE 1 [facility] (GLUCOPHAGE 8-07 TABLET BY [facility] ) 500 MG 00:00: MOUTH of [...] Date Status Commen ts Source Name Name Influenza, High Dose 2022-06-07 [facility] (fluzone) 00:00:00 Influenza, High Dose 2022-06-07 [facility]pleted [facility] (fluzone) 00:00:00 Influenza, High Dose 2022-06-07 Completed [facility] (fluzone) 00:00:00 COVID-19 Moderna & 2020-10-08 [facility] Vaccination 00:00:00 COVID-19 Moderna 18 & 2020-10-08 Completed [facility] Vaccination 00:00:00 COVID-19 Moderna & 2020-10-08 [facility]pleted [facility] Vaccination (RED 00:00:00 CAP) COVID-19 Moderna & 2020-10-08 [facility]pleted [facility] Vaccination (RED 00:00:00 CAP) COVID-19 Moderna & 2020-10-08 Completed [facility] Vaccination (RED 00:00:00 CAP) COVID-19 Moderna & 2020-10-08 Completed [facility] Vaccination (RED 00:00:00 CAP) COVID-19 Moderna & 2020-10-08 Completed [facility] Vaccination (RED 00:00:00 CAP) COVID-19 Moderna 12 & 2020-10-08 Completed [facility] Vaccination (RED 00:00:00 CAP) COVID-19 Moderna 12 & 2020-10-08 Completed [facility] Vaccination (RED 00:00:00 CAP) COVID-19 Moderna 12 & 2020-10-08 Completed [facility] Vaccination (RED 00:00:00 CAP) COVID-19 Moderna 12 & 2020-10-08 Completed [facility] Vaccination (RED 00:00:00 CAP) COVID-19 Moderna 18 & 2020-09-10 Completed [facility] Vaccination 00:00:00 COVID-19 Moderna 18 & 2020-09-10 Completed [facility] Vaccination 00:00:00 COVID-19 Moderna 12 & 2020-09-10 Completed [facility] Vaccination (RED 00:00:00 CAP) COVID-19 Moderna 12 & 2020-09-10 Completed [facility] Vaccination (RED 00:00:00 CAP) COVID-19 Moderna 12 & 2020-09-10 Completed [facility] Vaccination (RED 00:00:00 CAP) COVID-19 Moderna 12 & 2020-09-10 Completed [facility] Vaccination (RED 00:00:00 CAP) COVID-19 Moderna 12 & 2020-09-10 Completed [facility] Vaccination (RED 00:00:00 CAP) COVID-19 Moderna 12 & 2020-09-10 Completed [facility] Vaccination (RED 00:00:00 CAP) COVID-19 Moderna 12 & 2020-09-10 Completed [facility] Vaccination (RED 00:00:00 CAP) COVID-19 Moderna 12 & 2020-09-10 Completed [facility] Vaccination (RED 00:00:00 CAP) COVID-19 Moderna 12 & 2020-09-10 Completed [facility] Vaccination (RED 00:00:00 CAP) Zoster, Recombinant 2020-07-05 [facility]pleted [facility] [...] Zoster, live 2009-06-20 [facility] 00:00:00 Zoster, live 2009-06-20 [facility] 00:00:00 Zoster, live 2009-06-20 [facility]pleted [facility] 00:00:00 Zoster, live 2009-06-20 [facility]pleted [facility] 00:00:00 Zoster, live 2009-06-20 Completed [facility] 00:00:00 Zoster, live 2009-06-20 [facility]pleted [facility] 00:00:00 Zoster, live 2009-06-20 [facility]pleted [facility] 00:00:00 Zoster, live 2009-06-20 [facility]pleted [facility] 00[facility]00:00 Zoster, live 2009-06-20 Completed [facility] 00:00:00 Zoster, live 2009-06-20 [facility]pleted [facility] 00:00:00 Zoster, live 2009-06-20 [facility] 00:00:00 Vital Signs Vital Name Observation Time Observation Value Comments Source Systolic blood pressure 2022-09-20 16:52:00 128 mm[Hg] [facility] Diastolic blood pressure 2022-09-20 16:52:00 85 mm[Hg] [facility] Body temperature 2022-09-20 16:52:00 36.39 [place] [facility] Body height 2022-09-20 16:52:00 172.7 cm [facility] Body weight 2022-09-20 16:52:00 81.829 kg [facility] BMI 2022-09-20 16:52:00 27.43 kg/m2 [facility] Systolic blood pressure 2022-07-03 19:34:00 132 mm[Hg] [facility] Diastolic blood pressure 2022-07-03 19:34:00 62 mm[Hg] [facility] Body temperature 2022-07-03 19:34:00 36.06 [place] [facility] Body height 2022-07-03 19:34:00 172.7 cm [facility] Body weight 2022-07-03 19:34:00 81.647 kg [facility] BMI 2022-07-03 19:34:00 27.37 kg/m2 [facility] Systolic blood pressure 2021-12-08 16:42:00 128 mm[Hg] [facility] Diastolic blood pressure 2021-12-08 16:42:00 82 mm[Hg] [facility] Body temperature 2021-12-08 16:42:00 36.33 [place] [facility] Body height 2021-12-08 16:42:00 167.6 cm [facility] Body weight 2021-12-08 16:42:00 84.823 kg [facility] BMI 2021-12-08 16:42:00 30.18 kg/m2 [facility] Procedures Procedure Date / Time Performed Performing Clinician Sour e BASIC METABOLIC PANEL 2022-07-03 19:45:00 Claude Dem[facility] Plan of Care Planned Activity Planned Date Details Comments Source Future Scheduled Test MEDICARE AWV [code = [facility] MEDICARE AWV] Medicine Future Scheduled Test TETANUS SHOT (ADULT) [facility] [code = TETANUS SHOT Medicin e (ADULT)] Future Scheduled Test FALL SCREEN [code = [facility] FALL SCREEN] Medicine Future Scheduled Test PNEUMOVAX >=65 [facility] (PPSV23) [code = Medicine PNEUMOVAX >=65 (PPSV23)] Future Scheduled Test PREVNAR >= 65 (PCV13) [facility] [code = PREVNAR >= 65 Medici ne (PCV13)] Future Scheduled Test FLU VACCINE > 6 [facility] [code = FLU Medicine VACCINE > 6 MONTHS] Encounters Start End Encounter Admission Attending Care Care Encounter Source Date/Time Date/Time Type Type Clinicians Facility Department ID 2023-01-12 Outpatient [facility] [id number] [place] 11:41:29 [id number] [facility] 2022-12-22 Outpatient [facility] [id number] [place] 13:36:12 [id number] [facility] 2022-09-20 [place]patient [facility] [id number] [place] 17:22:59 [id number] [facility] 2022-09-10 Outpatient [facility] [id number] [place] 10:54:26 [id number] [facility] 2022-08-31 Outpatient [facility] [id number] [place] 10:15:46 [id number] [facility] 2022-07-03 Outpatient [facility] [id number] [place] 14:00:52 [id number] [facility] 2022-06-29 Outpatient [facility] [id number] [place] 19:18:02 [id number] [facility] 2023-09-20 2023-09-20 Outpatient NILA [facility] [id number] [place] 10:30:00 10:30:00 CLAUDE [facility] 2022-09-20 2022-09-20 Office JONNY Dempsey [id number] [place] 10:30:00 11:01:21 Visit Claude MILLAN 350.1.13.58 alth 9.2.7.2.686 [id number] 1 2022-07-03 2022-07-03 Office JONNY Dempsey [id number] [place] 14:30:00 16:04:48 Visit Claude MILLAN 350.1.13.58 He [facility] 9.2.7.2.686 [id number] 1 2022-01-04 2022-01-04 Outpatient EYAD BRASHER [facility] [id number] [facility] 14:39:12 16:33:14 YONATHAN Arambula 2021-12-26 2021-12-26 Telephone Osiris Buchanan [id number] [place] 00:00:00 00:00:00 Osiris Buchanan 350.1.13.58 Health 9.2.7.2.686 [id number] 1 2021-12-08 2021-12-08 Office JONNY Dempsey [id number] [place] 11:00:00 11:15:00 Visit Claude MILLAN 350.1.13.58 He alth 9.2.7.2.686 [id number] 1 2021-10-17 2021-10-17 Outpatient Pedrito, HCACL LABO [id number] [facility] 15:20:00 15:20:00 Carloz 73 [facility] 2021-10-17 2021-10-17 Outpatient EL Pedrito, HCATO HCATO [id number] [facility] 10:16:00 10:16:00 Carloz 61 [facility] 2021-10-17 2021-10-17 Outpatient EL Pedrito, HCATO RADI [id number] [facility] 09:53:00 09:53:00 Carloz 22 [facility] 2021-08-23 2021-08-23 JONNY Chaudhry [id number] [place] 00:00:00 00:00:00 Claude MILLAN 350.1.13.58 He alth 9.2.7.2.686 [id number] 1 2021-07-26 2021-07-26 Emergency KELSY RUSS [facility] [id number] [place] 00:00:00 00:00:[address] 2021-07-25 2021-07-25 JONNY Chaudhry [id number] [place] 00:00:00 00:00:00 Claude MILLAN 350.1.13.58 He alth 9.2.7.2.686 [id number] 1 2021-06-23 2021-06-23 Office JONNY Dempsey [id number] [place] 10:01:59 14:15:39 Visit Claude MILLAN 350.1.13.58 He alth 9.2.7.2.686 [id number] 1 2019-06-27 2019-06-27 Office EYAD Brasher [id number] [place] [address] 13:45:21 13:50:21 Visit Yonathan Tucker AMBULATOR 350.1.13.21 College Y 0.2.7.2.686 of [id number] Medi tahir 300 e Results Test Description Test Time Test Comments Results Result Comments Source Basic metabolic panel 2022-07-04 05:00:00 Test Item Value Reference Range Interpretation Comme nts GLUCOSE (test code = 88 mg/dL 65-139 ? ? ? Non-fasting 2345-7) reference inter ko UREA NITROGEN (BUN) 14 mg/dL 7-25 (test code = 3094-0) CREATININE (test code = 0.86 mg/dL 0.70-1.22 2160-0) EGFR (test code = See_Comment The eGFR i s based on [id number]) the CKD-EPI 202 1 equation. To ca lculate the new eGFR fr om a previous Creati nine or Cystatin Cresul t, go to https://www.kid ute.org/ professionals/k doqi/gfr %5Fcalculator [Automated mess age] The system which ge nerated this result tra nsmitted reference range : > OR = 60 mL/min/1.73m 2. The reference range was not used to interpr et this result as normal/abnormal . BUN/CREATININE RATIO NOT APPLICABLE See_Comment [Aut omated message] (test code = 3097-3) The sys tem which generated this result transmitted ref erence range: 6 - 22 ( calc). The reference r ryan was not used to int erpret this result as normal/abnormal . SODIUM (test code = 135 mmol/L 506-047 7295-2) POTASSIUM (test code = 4.2 mmol/L 3.5-5.3 2823-3) CHLORIDE (test code = 102 mmol/L 98-110 2075-0) CARBON DIOXIDE (test 26 mmol/L 20-32 code = 2027-9) CALCIUM (test code = 10.1 mg/dL 8.6-10.3 REPORT 80448-4) COMMENT:FASTING :NO RAC (test code = RAC) Performing Organization Information: ? ?Site ID: [id number] ? ?Name: [employer] ? ?Address: [address] [place] [id number] ? ?Director: MARK ANTHONY SANCHEZ MD [id number] 18:56:00 Test Item Value Reference Range Interpretation Comments SYNOVIAL FLD LIGHT YELLOW LT. YELLOW COLOR (test code = COLSY) SYNOVIAL FLD CLOUDY CLEAR A APPEARANCE (test code = APPSY) SYNOVIAL FLD 1 mL VOLUME (test code = VOLSY) SYNOVIAL FLD WBC 628.000 /MM3 0-200 H (test code = WBCSY) SYNOVIAL FLD RBC 1000.000 /mm3 0-2 H NOTE: An a utomated (test code = method is now b eing used RBCSY) to determinesyn ovial fluid WBC and R BC counts. The dif ferential willstill be pe rformed manually. SYNOVIAL FLD POLY 4 % 0-25 N (test code = POLYSY) SYNOVIAL FLD 81 % 0-78 H LYMPHOCYTE (test code = LYMPHSY) SYNOVIAL FLD 14 % 0-71 N MONOCYTE (test code = MONOSY) SYNOVIAL FLD SEE BELOW SYNOVIAL LINING CELL: 1 OTHER CELL (test code = OTHERSY) SPECIMEN COMMENT: LEFT KNEE ASPIRATION, 10-17-21 DR CORREA- XR FLUORO NDL 2021-10-17 16:37:00 [facility] : 1935 Sex: M Patient Name: MARK ANTHONY SALCIDO Unit No: [id number] EXAMS: CPT CODE: [id number] XR FLUORO NDL 35430 FLUOROSCOPICALLY GUIDED ASPIRATION OF THE LEFT KNEE COMMENT: After informed consent was obtained a needle was placed in the knee joint with fluoroscopic guidance. Its position was confirmed with an APradiograph. 0.1 minutes of fluoroscopy time was utilized. 9 mL of clear fluid was aspirated and sentfor analysis. No immediate complications were encountered. at 1637 Reported and signed by: Isiah Correa MD CC: Carloz HayesiaTechnologist: RT Jose Antonio.(R) Transcribed D/ (1637) PhilomenaL [facility] NAME: MARK ANTHONY SALCIDO [address] [place] [address] PHYS: Carloz Gallegos MD : 1935 AGE:86 SEX: M [place], [place] [address] LOC: Y.LAB PHONE #: [phone] EXAM DATE: 10/17/2021 STATUS: REG CLI FAX #: [phone] RAD #: [id number] D/C DT PAGE 1 Signed Report Patient Name: MARK ANTHONY SALCIDO Unit No: [id number] EXAMS: CPT CODE: [id number] XR FLUORO NDL 21333 (Continued) Orig Print D/T: S: 10/17/2021 (1640) [facility] NAME: MARK ANTHONY SALCIDO [address] [place] [address] PHYS: Carloz Gallegos MD : 1935 AGE: 86 SEX: M [place], [place] [address] LOC: Y.LAB PHONE #: [phone] EXAM DATE: 10/17/2021 STATUS: REG CLI FAX #: [phone] RAD #: [id number] D/C DT PAGE 2 Signed Report- XR FLUORO NDL 2021-10-17 16:37:00 [facility] : 1935 Sex: M Patient Name: MARK ANTHONY SALCIDO Unit No: [id number] EXAMS: CPT CODE: [id number] XR FLUORO NDL 32223 FLUOROSCOPICALLY GUIDED ASPIRATION OF THE LEFT KNEE [...] Major Technologist: Tash Zavala RT.(R) Transcribed D/ (4573) BennyJCL [facility] NAME: MARK ANTHONY SALCIDO [address] [place] [address] PHYS: Carloz Gallegos MD : 1935 AGE: 86 SEX: M [place] [address] LOC: Y.RAD PHONE #: [phone] EXAM DATE: 10/17/2021 STATUS: DEP CLI FAX #: [phone] RAD #: [id number] D/C DT PAGE 1 Signed Report Patient Name : MARK ANTHONY SALCIDO Unit No: [id number] EXAMS: CPT CODE: [id number] XR FLUORO NDL 05817 (Continued) Orig Print D/T: S: 10/17/2021 (1640) [facility] NAME: MARK ANTHONY SALCIDO [address] [place] [address] PHYS: Carloz Gallegos MD : 1935 AGE: 86 SEX: M [place] [address] LOC: Y.RAD PHONE #: [phone] EXAM DATE: 10/17/2021 STATUS: DEP CLI FAX #: [phone] RAD #: [id number] D/C DT PAGE 2 Signed ReportCBC W/AUTO [id number] 12:26:00 Test Item Value Reference Range Interpretation [...] % 0-0 N code = NRBC) SED [id number] 12:26:00 Test Item Value Reference Range Interpretation Comments SED RATE (test code = SEDW) 6 mm/hr 0-15 N C REACTIVE [id number] 11:50:00 Test Item Value Reference Range Interpretation Comments C REACTIVE PROTEIN (test code = < 0.2 mg/dL <0.9 CRP)
[2023-01-17] MEDS ORDERED: NA CHLORIDE 0.9% 1,000 ML ONE ×2 (10:27→15:24)
[2023-01-17 10:46] LABS: Absolute Lymphocytes (CBC) 0.7 K/uL (0.7-4.9); Hematocrit 32.9 % (39.6-49.0); Lymphocytes % 8.5 % (15.3-44.8); MCV 91.8 fL (80-100); RBC Red Blood Cell Count 3.58 M/uL (4.33-5.43)
[2023-01-17 11:12] LABS: Albumin 3.3 g/dL (3.4-5.0); Bilirubin Direct 0.3 mg/dL (0-0.2); Bilirubin Indirect, Calculated 0.4 mg/dL (0.2-0.8); Bilirubin Total 0.7 mg/dL (0.2-1.0); Magnesium 1.9 mg/dL (1.6-2.4); Potassium 3.9 mEq/L (3.5-5.1); Protein, Total 5.8 g/dL (6.4-8.2); Troponin High Sensitivity 8.6 pg/mL (<58.9)
--- NOTE | 2023-01-17 11:17 | RAD REPORT ---
EXAM DESCRIPTION: RAD - Knee Left 3 View - 01/17/2023 10:49 am CLINICAL HISTORY: PAIN COMPARISON: No comparisons FINDINGS: Left total knee arthroplasty is present. No evidence of hardware loosening or infection. N o fracture evident. Heavy atherosclerosis.
--- NOTE | 2023-01-17 11:29 | RAD REPORT ---
EXAM DESCRIPTION: CT - Head C Spine Cap Bobby Saleem - 01/17/2023 10:59 am CLINICAL HISTORY: Trauma, head and neck injury. Chest, abdomen and pelvis pain. trauma, hypotension COMPARISON: No comparisons TECHNIQUE: CT head without contrast. CT cervical spine without contrast with coronal and sagittal reformatted images. CT chest, abdomen and pelvis with IV contrast (approximately 100 mL nonionic IV contrast) with pratt l and sagittal reformatted images of the spine. All CT scans are performed using dose optimization technique as appropriate and may include automated exposure control or mA/KV adjustment according to patient size. FINDINGS: CT HEAD WITHOUT CONTRAST: No intracranial hemorrhage, hydrocephalus or extra-axial fluid collection. Moderate generalized brain atrophy is present with mild periventricular and deep white matter chronic microvascular ischemic ch anges. No areas of brain edema or midline shift. The paranasal sinuses and mastoids are clear. The calvarium is intact. CT CERVICAL SPINE WITHOUT CONTRAST: No fracture or subluxation. Moderate cervical degenerative changes at multiple levels. The prevertebr al soft tissues are normal in thickness.Heavy atherosclerosis of both carotid bulbs, greater on the l eft. CT CHEST, ABDOMEN, PELVIS WITH CONTRAST: Mild diffuse COPD.No pneumothorax or pericardial/pleural fluid. There is mild free fluid in the upper abdomen surrounding the liver and spleen. There is no evidence of liver or splenic laceration. Elsewhere, no evidence of a solid organ injury. The urinary bladder is quite distended. Prostate glan d is moderately enlarged. No acute fracture seen. IMPRESSION: Kjiw-la-wcfchjvk free fluid in the upper abdomen is seen. The density of this fluid is m ore that of simple fluid rather than blood product. It is favored that this is not a trauma related f inding, however correlation with clinical exam findings is recommended given the nonspecific nature o f the fluid.
--- NOTE | 2023-01-17 11:58 | RAD REPORT ---
EXAM DESCRIPTION: RAD - Hand Left 3 View - 01/17/2023 10:49 am CLINICAL HISTORY: PAIN COMPARISON: No comparisons FINDINGS: Prominent diffuse osteopenia is seen. Distal second digit is suboptimally visualized. Moderate multi joint arthritic changes are present. No acute fracture or dislocation seen.
[2023-01-17 12:43] LABS: Specific Gravity 1.011 (1.005-1.030); Urine Bilirubin NEGATIVE (Negative); Urine Blood Negative (Negative); Urine Clarity Clear (Clear); Urine Color Light-Yellow (Yellow); Urine Glucose NEGATIVE (Negative); Urine Protein NEGATIVE (Negative); Urine Urobilinogen Normal (Normal); Urine pH 6.5 (5.0-7.0)
--- NOTE | 2023-01-17 13:12 | ER ---
Nurse's Notes [facility] Name: Lauri Lambert Age: 87 yrs Sex: Male : 1935 Arrival Date: 01/17/2023 Time: 09:50 Bed 2 Private MD: Diagnosis: Fall on same level, unspecified;Splenic hematoma;Hypotension;Urinary retention Presentation: 01/17 10:02 Chief complaint: Patient states: Went to get the newspaper, dog pull him accidentally. nj1 Left hand/wrist, left ribs and left knee. Denies LOC, takes blood thinners, xarelto. Coronavirus screen: Vaccine status: Patient reports receiving the 2nd dose of the covid vaccine. Ebola Screen: Patient denies travel to an Ebola-affected area in the 21 days before illness onset. 10:02 Method Of Arrival: Ambulatory nj1 10:05 Note Triage paused at this time, patietn taken to room 2 via WC. nj1 10:06 Acuity: HAYDER 2 nj1 10:06 Care prior to arrival: None. Mechanism of Injury: Fall from standing position. nj1 10:[address] Bustamante at bedside. nj1 10:10 Initial Sepsis Screen: Does the patient meet any 2 criteria? Mean Arterial Pressure nj1 (MAP) < 65. No. Patient's initial sepsis screen is negative. Note Triage paused, taken to room 2 via WC, provider at bedside. 10:10 Initial Sepsis Screen: Does the patient have a suspected source of infection? No. nj1 Patient's initial sepsis screen is negative. Risk Assessment: Do you want to hurt yourself or someone else? Patient reports no desire to harm self or others. Onset of symptoms was January 17, 2023 at 07:45. Transition of care: patient was not received from another setting of care. 10:46 Trauma event details: Injury occurred in the [facility], Injury occurred: at kc6 home. Injury occurred: January 17, 2023. Trauma Activation: Not Applicable Physician: ED Physician; Name: ; Notified At: ; Arrived At: Physician: General Surgeon; Name: ; Notified At: ; Arrived At: Physician: Radiology; Name: ; Notified At: ; Arrived At: Physician: Respiratory; Name: ; Notified At: ; Arrived At: Physician: Lab; Name: ; Notified At: ; Arrived At: Historical: - Allergies: 10:26 No Known Allergies; nj1 - Home Meds: 11:00 lisinopril 40 mg oral tablet [Active]; Xarelto 15 mg Oral tab 1 tab [Active]; Norvasc 5 nj1 mg Oral tablet [Active]; Levoxyl 125 mcg Oral tablet [Active]; Glucophage Oral 500 mg [Active]; Lasix 20 mg Oral tablet [Active]; Klor-Con M20 20 mEq Oral Tablet, ER Particles/Crystals [Active]; simvastatin 40 mg Oral tab [Active]; - PMHx: 10:26 Atrial fibrillation; nj1 11:00 Hypertensive disorder; Hypothyroidism; Diabetes mellitus; nj1 - PSHx: 10:26 Knee replacement, left; Appendectomy; nj1 - Immunization history:: Client reports receiving the 2nd dose of the Covid vaccine. - Social history:: Smoking status: Patient/guardian denies using tobacco, but has a distant history of tobacco abuse. - Immunization history: Last tetanus immunization: unknown. - Family history:: not pertinent. Screenin:46 [facility] ED Fall Risk Assessment (Adult) History of falling in the last 3 months, kc6 including since admission Yes- single mechanical fall (1 pt) Confusion or Disorientation No (0 pts) Intoxicated or Sedated No (0 pts) Impaired Gait No (0 pts) Mobility Assist Device Used No (0 pt) Altered Elimination No (0 pt) Score/Fall Risk Level 0 - 2 = Low Risk Oriented to surroundings, Maintained a safe environment, Educated pt \T\ family on fall prevention, incl call for assistance when getting out of bed, Assessed \T\ reinforced patient's understanding of fall precautions, Hourly rounding (assess needs \T\ fall precautionary measures) done. Abuse screen: Denies threats or abuse. Denies injuries from another. Nutritional screening: No deficits noted. Tuberculosis screening: No symptoms or risk factors identified. Primary Survey: 10:46 NO uncontrolled hemorrhage observed. A: The client is awake and alert. The airway is kc6 patent. Breathing/Chest: Spontaneous respiratory effort, equal unlabored respirations, breath sounds clear bilaterally, regular pattern, symmetrical chest rise and fall. Circulation: No external hemorrhage present. Regular and strong central pulse, skin warm/dry/normal color. Disability Pupils are equal, round, reactive to light and accommodation. Exposure/Environment: All clothing and personal items were removed. Forensic evidence collection is not deemed to be indicated at this time. Items placed in patient belonging bag. There is no evidence of uncontrolled external bleeding. Obvious injury(ies) are noted at this time: abrasion noted to the left knee A warming method has been applied: A warm blanket has been provided to the patient. 11:49 Reassessment Alertness and Airway: Awake and alert. The airway is patent. Breathing: kc6 Spontaneous respiratory effort, equal unlabored respirations, breath sounds clear bilaterally, regular pattern with symmetrical chest rise and fall. Circulation: No external hemorrhage noted. Regular and strong central pulse, skin warm/dry/normal color. Disability: Pupils Pupils are equal, round, reactive to light and accomodation. Secondary Survey: 10:46 HEENT: No deficits noted. Gastrointestinal: No deficits noted. : No signs and/or kc6 symptoms were reported regarding the genitourinary system. Musculoskeletal: No signs and/or symptoms reported regarding the musculoskeletal system. Circulation, motion, and sensation intact. Capillary refill < 3 seconds, Range of motion: intact in all extremities. Assessment: 10:44 General: Appears in no apparent distress. comfortable, Behavior is calm, cooperative, kc6 appropriate for age. Pain: Complains of pain in neck and left knee Pain does not radiate. Neuro: Deal Agitation-Sedation Scale (RASS): 0 - Alert and Calm Level of Consciousness is awake, alert, obeys commands, Oriented to person, place, time, situation, Appropriate for age Denies dizziness. Cardiovascular: Denies chest pain, lightheadedness, Heart tones S1 S2 present Capillary refill < 3 seconds Rhythm is atrial fibrillation Chest pain is denied. Respiratory: Airway is patent Trachea midline Respiratory effort is even, unlabored, Respiratory pattern is regular, symmetrical, Breath sounds are clear bilaterally. GI: Abdomen is flat, non-distended, Bowel sounds present X 4 quads. Abd is soft X 4 quads Abdomen is tender to palpation in right lower quadrant and left lower quadrant Patient currently denies diarrhea, nausea, vomiting. : No signs and/or symptoms were reported regarding the genitourinary system. EENT: No signs and/or symptoms were reported regarding the EENT system. Derm: Skin abrasion to the left knee Skin is pink, warm \T\ dry. Musculoskeletal: No signs and/or symptoms reported regarding the musculoskeletal system. Circulation, motion, and sensation intact. Capillary refill < 3 seconds, Range of motion: intact in all extremities. 11:44 Reassessment: Patient appears in no apparent distress at this time. No changes from [facility] previously documented assessment. Patient and/or family updated on plan of care and expected duration. Pain level reassessed. Patient is alert, oriented x 3, equal unlabored respirations, skin warm/dry/pink. 12:27 Reassessment: pt voided approximately 2L of clear, yellow urine to mason. kc 12:44 Reassessment: Patient appears in no apparent distress at this time. No changes from [facility] previously documented assessment. Patient and/or family updated on plan of care and expected duration. Pain level reassessed. Patient is alert, oriented x 3, equal unlabored respirations, skin warm/dry/pink. 13:13 Reassessment: Dr. Olson at beside. 75mL of bright red blood noted to be in mason. Dr. yamila Bustamante notified. 13:44 Reassessment: Patient appears in no apparent distress at this time. No changes from [facility] previously documented assessment. Patient and/or family updated on plan of care and expected duration. Pain level reassessed. Patient is alert, oriented x 3, equal unlabored respirations, skin warm/dry/pink. 14:07 Reassessment: attempted to call report to [facility] ED. on hold for 6min, will [facility] call back. 14:44 Reassessment: Patient appears in no apparent distress at this time. No changes from [facility] previously documented assessment. Patient and/or family updated on plan of care and expected duration. Pain level reassessed. Patient is alert, oriented x 3, equal unlabored respirations, skin warm/dry/pink. 16:00 Reassessment: pt med info binder to security, left at bedside upon transfer. [facility] Vital Signs: 10:02 BP 85 / 54; Pulse 57; Resp 20; Temp 97.9(TE); Pulse Ox 100% ; Weight 79.38 kg; Height 5 nj1 ft. 8 in. ; Pain 4/10; 10:05 BP 77 / 50; nj1 10:17 BP 78 / 54 RA Sitting (man/reg); kc6 10:48 BP 94 / 54; Pulse 48; Resp 18 S; Pulse Ox 100% on R/A; kc6 11:08 BP 138 / 67; Pulse 52; Resp 17 S; Pulse Ox 96% on R/A; kc6 11:49 BP 137 / 59; Pulse 63; Resp 19 S; Pulse Ox 99% on R/A; kc6 12:00 BP 71 / 50; Pulse 59; Resp 19 S; Pulse Ox 100% on R/A; kc6 12:15 BP 79 / 49; Pulse 61; Resp 21 S; Pulse Ox 99% on R/A; kc6 12:30 BP 117 / 67; Pulse 53; Resp 26 S; Pulse Ox 97% on R/A; kc6 12:45 BP 123 / 66; Pulse 56; Resp 22 S; Pulse Ox 91% on R/A; kc6 13:04 BP 123 / 66; Pulse 77; Resp 26 S; Pulse Ox 100% on R/A; kc6 13:14 BP 115 / 54; Pulse 68; Resp 21 S; Pulse Ox 98% on R/A; kc6 13:49 BP 93 / 53; Pulse 61; Resp 19 S; Pulse Ox 100% on R/A; kc6 10:02 Body Mass Index 26.61 (79.38 kg, 172.72 cm) nj1 10:02 Pain Scale: Adult nj1 Henrry Coma Score: 10:46 Eye Response: spontaneous(4). Motor Response: obeys commands(6). Verbal Response: kc6 oriented(5). Total: 15. Trauma Score (Adult): 10:46 Eye Response: spontaneous(1); Verbal Response: oriented(1); Motor Response: obeys kc6 commands(2); Systolic BP: 76 to 89 mm Hg(3); Respiratory Rate: 10 to 29 per min(4); [place] Score: 15; Trauma Score: 11 ED Course: 09:50 Patient arrived in ED. am2 09:52 Rickie Bustamante MD is Attending Physician. rt 10:23 Triage completed. nj1 10:24 Inserted saline lock: 20 gauge in right antecubital area, using aseptic technique. kc6 Blood collected. 10:27 Rachel Carrasquillo, SAVANA is Primary Nurse. kc6 10:27 Arm band placed on. nj1 10:39 Type And Screen Sent. kc6 10:39 CBC with Diff Sent. kc6 10:39 Basic Metabolic Panel Sent. kc6 10:39 CMP Sent. kc6 10:39 Troponin High Sensitivity Sent. kc6 10:39 Magnesium Sent. kc6 10:39 Hepatic Function Sent. kc6 10:46 Patient has correct armband on for positive identification. Bed in low position. Call kc6 light in reach. Side rails up X2. Adult w/ patient. 10:48 Patient maintains SpO2 saturation greater than 95% on room air. Thermoregulation: warm kc6 blanket given to patient. 10:52 Hand Left 3 View XRAY In Process Unspecified. EDMS 10:52 Knee Left 3 View XRAY In Process Unspecified. EDMS 11:01 CT Traumagram (Head C Spine CAP W Con) In Process Unspecified. EDMS 12:27 Mason cath inserted, using sterile technique, 18 Fr., by il, balloon inflated, to kc6 gravity drainage, clamped. urine specimen collected. 15:35 No provider procedures requiring assistance completed. Patient transferred, IV remains kc6 in place. 16:15 notebook with pt information sent to [facility] and found with security. bd Administered Medications: 10:24 Drug: NS 0.9% IV 1000 ml Route: IV; Rate: 1 bolus; Site: right antecubital; kc6 13:15 Follow up: Response: No adverse reaction; IV Status: Completed infusion; IV Intake: kc6 1000ml Medication: 15:35 VIS not applicable for this client. kc6 Intake: 13:15 IV: 1000ml; Total: 1000ml. kc6 Outcome: 13:11 ER care complete, transfer ordered by . rt 15:35 Transferred by ground EMS to [facility], Transfer form completed. Note: kc6 Report called to SAVANA Chang 15:35 Condition: stable 15:35 Instructed on the need for transfer. 15:35 Patient left the ED. kc6 Signatures: Dispatcher [employer] EDMS Ceci Lebron bd Martha Spann am2 Rachel Carrasquillo RN RN kc6 Rickie Bustamante MD MD rt Brittnee Guerrero RN RN nj1 Corrections: (The following items were deleted from the chart) 10:23 10:02 Pulse 57bpm; Pulse Ox 100%; Temp 97.9F Temporal; nj1 nj1 10:26 10:02 BP 85 / 54; Pulse 57bpm; Resp 22bpm; Pulse Ox 100%; Temp 97.9F Temporal; 79.38 nj1 kg; Height 5 ft. 8 in.; BMI: 26.6; Pain 4/10, Adult; nj1 10:26 PMHx: diabetes mellitus; nj1 nj1 34 10:26 PMHx: Hypertensive disorder; nj1 nj1 11:09 10:44 Cardiovascular: Denies chest pain, lightheadedness, Heart tones S1 S2 present kc6 Capillary refill < 3 seconds Rhythm is sinus bradycardia Chest pain is denied kc6 13:15 10:44 GI: No signs and/or symptoms were reported involving the gastrointestinal system. kc6 kc6
--- NOTE | 2023-01-17 13:12 | EDPHYS ---
Physician Documentation [facility] Name: Lauri Lambert Age: 87 yrs Sex: Male : 1935 Arrival Date: 01/17/2023 Time: 09:50 Bed 2 Private MD: ED Physician Rickie Bustamante HPI: 01/17 10:48 This 87 yrs old Male presents to ER via Ambulatory with complaints of Fall Injury, rt Abrasion(s) - knee, rib pain. 10:48 Patient presents to the ED with mechanical fall. The patient states that he was walking rt his dog, who pulled him over. Patient is unclear whether or not he hit his head. She does complain of a pain to the left side of his ribs, left hand as well as left knee where he had an abrasion. Denies dizziness, shortness of breath. Denies other acute complaints at this time. Symptoms are moderate severity, no other aggravating or alleviating factors.. Historical: - Allergies: 10:26 No Known Allergies; nj1 - Home Meds: 11:00 lisinopril 40 mg oral tablet [Active]; Xarelto 15 mg Oral tab 1 tab [Active]; Norvasc 5 nj1 mg Oral tablet [Active]; Levoxyl 125 mcg Oral tablet [Active]; Glucophage Oral 500 mg [Active]; Lasix 20 mg Oral tablet [Active]; Klor-Con M20 20 mEq Oral Tablet, ER Particles/Crystals [Active]; simvastatin 40 mg Oral tab [Active]; - PMHx: 10:26 Atrial fibrillation; nj1 11:00 Hypertensive disorder; Hypothyroidism; Diabetes mellitus; nj1 - PSHx: 10:26 Knee replacement, left; Appendectomy; nj1 - Immunization history:: Client reports receiving the 2nd dose of the Covid vaccine. - Social history:: Smoking status: Patient/guardian denies using tobacco, but has a distant history of tobacco abuse. - Immunization history: Last tetanus immunization: unknown. - Family history:: not pertinent. ROS: 10:48 Constitutional: Negative for fever, chills, and weight loss, Eyes: Negative for injury, rt pain, redness, and discharge, Cardiovascular: Negative for chest pain, palpitations, and edema, Respiratory: Negative for shortness of breath, cough, wheezing, and pleuritic chest pain, Abdomen/GI: Negative for abdominal pain, nausea, vomiting, diarrhea, and constipation, Skin: Negative for injury, rash, and discoloration, Neuro: Negative for headache, weakness, numbness, tingling, and seizure, Psych: Negative for depression, anxiety, suicide ideation, homicidal ideation, and hallucinations. 10:48 MS/extremity: Positive for abrasion, pain. Exam: 10:48 Constitutional: This is a well developed, well nourished patient who is awake, alert, rt and in no acute distress. Eyes: Pupils equal round and reactive to light, extra-ocular motions intact. Lids and lashes normal. Conjunctiva and sclera are non-icteric and not injected. Cornea within normal limits. Periorbital areas with no swelling, redness, or edema. Chest/axilla: Normal chest wall appearance and motion. Nontender with no deformity. No lesions are appreciated. Cardiovascular: Regular rate and rhythm with a normal S1 and S2. No gallops, murmurs, or rubs. Normal PMI, no JVD. No pulse deficits. Respiratory: Lungs have equal breath sounds bilaterally, clear to auscultation and percussion. No rales, rhonchi or wheezes noted. No increased work of breathing, no retractions or nasal flaring. Abdomen/GI: Soft, non-tender, with normal bowel sounds. No distension or tympany. No guarding or rebound. No evidence of tenderness throughout. Neuro: Awake and alert, GCS 15, oriented to person, place, time, and situation. Cranial nerves II-XII grossly intact. Motor strength 5/5 in all extremities. Sensory grossly intact. Cerebellar exam normal. Normal gait. Psych: Awake, alert, with orientation to person, place and time. Behavior, mood, and affect are within normal limits. 10:48 Head/face: Contusion noted to the left supraorbital ridge. 10:48 ECG was reviewed by the Attending Physician. 10:48 Musculoskeletal/extremity: Abrasion without focal tenderness noted on left knee, no focal areas of tenderness, deformity noted to left hand, no other swelling, deformity, tenderness to palpation on extremities. Vital Signs: 10:02 BP 85 / 54; Pulse 57; Resp 20; Temp 97.9(TE); Pulse Ox 100% ; Weight 79.38 kg; Height 5 nj1 ft. 8 in. ; Pain 4/10; 10:05 BP 77 / 50; nj1 10:17 BP 78 / 54 RA Sitting (man/reg); kc6 10:48 BP 94 / 54; Pulse 48; Resp 18 S; Pulse Ox 100% on R/A; kc6 11:08 BP 138 / 67; Pulse 52; Resp 17 S; Pulse Ox 96% on R/A; kc6 11:49 BP 137 / 59; Pulse 63; Resp 19 S; Pulse Ox 99% on R/A; kc6 12:00 BP 71 / 50; Pulse 59; Resp 19 S; Pulse Ox 100% on R/A; kc6 12:15 BP 79 / 49; Pulse 61; Resp 21 S; Pulse Ox 99% on R/A; kc6 12:30 BP 117 / 67; Pulse 53; Resp 26 S; Pulse Ox 97% on R/A; kc6 12:45 BP 123 / 66; Pulse 56; Resp 22 S; Pulse Ox 91% on R/A; kc6 13:04 BP 123 / 66; Pulse 77; Resp 26 S; Pulse Ox 100% on R/A; kc6 13:14 BP 115 / 54; Pulse 68; Resp 21 S; Pulse Ox 98% on R/A; kc6 13:49 BP 93 / 53; Pulse 61; Resp 19 S; Pulse Ox 100% on R/A; kc6 10:02 Body Mass Index 26.61 (79.38 kg, 172.72 cm) nj1 10:02 Pain Scale: Adult nj1 Henrry Coma Score: 10:46 Eye Response: spontaneous(4). Motor Response: obeys commands(6). Verbal Response: kc6 oriented(5). Total: 15. Trauma Score (Adult): 10:46 Eye Response: spontaneous(1); Verbal Response: oriented(1); Motor Response: obeys kc6 commands(2); Systolic BP: 76 to 89 mm Hg(3); Respiratory Rate: 10 to 29 per min(4); [place] Score: 15; Trauma Score: 11 MDM: 10:08 Patient medically screened. rt 17:31 Differential diagnosis: Pneumonia, rib fracture, pneumothorax. Data reviewed: vital rt signs, nurses notes. I considered the following discharge prescriptions or medication management in the emergency department Medications were administered in the Emergency Department. See MAR. Care significantly affected by the following chronic conditions: Atrial fibrillation. Counseling: I had a detailed discussion with the patient and/or guardian regarding: the historical points, exam findings, and any diagnostic results supporting the discharge/admit diagnosis, lab results, radiology results, the need to transfer to another facility. 17:32 Consideration of Admission/Observation Escalation of care including rt admission/observation considered. Management of patient was discussed with the following:. Management of patient was discussed with the following: Shipping Processor: Discussed with accepting trauma surgeon, discussed with general surgery here, states that this patient has a traumatic injury, likely splenic hematoma, would likely benefit from transfer for higher level of care to trauma center.. Independent interpretation of the following test(s) in the Emergency Department. Independent interpretation of the following test(s) in the Emergency Department CT Scan: My interpretation is Distended urinary bladder seen on interpretation of the CT scan images. 01/17 10:22 Order name: Basic Metabolic Panel rt 01/17 10:22 Order name: CBC with Diff; Complete Time: 11:20 rt 01/17 10:22 Order name: Type And Screen; Complete Time: 11:20 rt 01/17 10:22 Order name: Urinalysis w/ reflexes; Complete Time: 12:50 rt 01/17 10:22 Order name: CMP; Complete Time: 11:20 rt 01/17 10:22 Order name: Troponin High Sensitivity; Complete Time: 11:20 rt 01/17 10:22 Order name: Hepatic Function; Complete Time: 11:20 rt 01/17 10:22 Order name: Magnesium; Complete Time: 11:20 rt 01/17 13:27 Order name: ABO/RH no charge; Complete Time: 13:34 EDMS 01/17 10:22 Order name: CT Traumagram (Head C Spine CAP W Con); Complete Time: 11:54 rt 01/17 10:24 Order name: Hand Left 3 View XRAY; Complete Time: 12:00 rt 01/17 10:24 Order name: Knee Left 3 View XRAY; Complete Time: 11:20 rt 01/17 10:22 Order name: EKG; Complete Time: 10:23 rt 01/17 10:22 Order name: Labs collected and sent; Complete Time: 10:39 rt 01/17 10:22 Order name: EKG - Nurse/Tech; Complete Time: 10:37 rt EC:48 Rate is 57 beats/min. Rhythm is regular, A fib with No ectopy. QRS [place] is Normal. QRS rt interval is normal. QT interval is normal. No Q waves. T waves are Normal. No ST changes noted. Interpreted by me. Administered Medications: 10:24 Drug: NS 0.9% IV 1000 ml Route: IV; Rate: 1 bolus; Site: right antecubital; kc6 13:15 Follow up: Response: No adverse reaction; IV Status: Completed infusion; IV Intake: kc6 1000ml Disposition Summary: 01/17/23 13:11 Transfer Ordered Transfer Location: [facility] rt Reason: Higher level of care rt Condition: Fair rt Problem: new rt Symptoms: have improved rt Accepting Physician: Dr. Bryant(01/17/23 15:35) kc6 Diagnosis - Fall on same level, unspecified rt - Splenic hematoma rt - Hypotension rt - Urinary retention rt Forms: - Medication Reconciliation Form rt - SBAR form rt Critical care time excluding procedures: 15:24 Critical care time: Bedside Care: 30 minutes, Consultation: 5 minutes. Total time: 35 rt minutes Signatures: Dispatcher [employer] EDRachel Melendrez RN RN kc6 Rickie Bustamante MD MD rt Brittnee Guerrero RN RN nj1 Corrections: (The following items were deleted from the chart) 10:34 10:26 PMHx: diabetes mellitus; nj1 nj1 10:34 10:26 PMHx: Hypertensive disorder; nj1 nj1 13:36 13:11 Dr. velasco rt 15:35 13:36 Dr. Bryant rt kc6 17:34 17:31 Consideration of Admission/Observation Patient was admitted/placed on rt observation. rt 17:34 17:31 Management of patient was discussed with the following: Hospitalist: Agrees to rt admit. rt 17:34 17:31 Independent interpretation of the following test(s) in the Emergency Department rt X-Ray: My interpretation is Consolidation seen on my interpretation of the x-ray images. rt
[2023-01-17 16:03] VITALS: TEMP 97.9
[2023-01-17 16:17] VITALS: BP 93/53; O2SAT 100
--- NOTE | 2023-01-18 01:49 | CON ---
Date of Consultation: 01/17/2023 Brief History Of Present Illness: The patient is an 87-year-old male, who was out walking his dog kahlil boogie today on a leash when it suddenly pulled him over. He fell down from standing essentially on h is left side. He immediately developed pain in his left chest, left arm, left leg, and left eye sock et region. He denies any loss of consciousness. He was not amnestic to the event. He only has pain in the areas. No bleeding. No other complaints at this point. No shortness of breath. He does no baldo some abdominal tenderness with palpation, however. Past Medical History: Significant for atrial fibrillation, hypertensive disorder, hypothyroidism, an d diabetes. Past Surgical History: Includes a knee replacement on the left and an appendectomy. Medications: He is maintained on Xarelto as well as lisinopril, Norvasc, Levoxyl, Glucophage, Lasix, Klor-Con, simvastatin, and he thinks Eliquis, but cannot recall exactly, but he is sure about Xarelt o that he is taking it. Social History: He denies current tobacco usage, but has a very distant history of tobacco use. Review of Systems: Ten-point review of systems other than HPI, denies. Physical Examination: Vital Signs: At the time of my examination, his pulse was 57, his blood pressure was 126/82, pulse o x 100% on room air, and temperature was 97.9. General: He is awake, alert, and oriented. Psychiatric: He was appropriate and conversive. HEENT: He had bruising on his left eye socket, but no obvious scleral injury. His extraocular muscl es are intact. PERRLA. EOMI. There was no expanding hematoma. There was no other cranial injury. Neck: Supple. There was no obvious JVD or other neck injuries. Chest: He had tenderness along his left rib cage extending from the axillary region all the way to h is hip. He did have some tenderness with movement of the arm in most positions. He had tenderness i n his left knee on the lateral aspect with small amount of bruising. chest had normal expansion excu rsion. Cardiovascular: Regular rate and rhythm. Pulmonary: Clear to auscultation bilaterally. Abdomen: Soft with positive left upper quadrant and right upper quadrant mild tenderness to palpatio n. No rebound. No guarding. No focal peritonitis. Extremities: As described above and had no clubbing or edema. Skin: Warm and dry. Laboratory Data: He had a laboratory exam, which revealed a white blood cell count of 8.2, hemoglobi n is 11.2, hematocrit of 39.2, and platelet count was 221. Chemistry showed a sodium of 134, potassi um 3.9, chloride 106, carbon dioxide 25, BUN 14, creatinine was 1.02, glucose is 170, magnesium 1.9, total bilirubin 0.7, and direct bilirubin 0.3. AST 11, ALT 13, and alkaline phosphatase 59 and tropo suki high sensitivity was 8.6. He had a UA, which was essentially normal. He had imaging including a obrien CT scan, which was officially read as no intracranial hemorrhage, hydrocephalus, or extra-axial fluid collection. Mild generalized brain atrophy is present with mild periventricular and deep white matter chronic microvascular ischemic changes. No areas of brain edema or midline shift. Paranasal sinuses and mastoids are clear. Calvarium is intact. CT C-spine showed no fracture or subluxation. Moderate cervical degeneration changes at multiple levels. The prevertebral soft tissues are gabbi l in thickness. Heavy atherosclerosis of both carotid bulb, great on the left. CT abdomen and pelvi s showed mild diffuse COPD, no pneumoperitoneum or pericardial fluid. There is mild free fluid in th e upper abdomen surrounding the liver and spleen. No evidence of liver or splenic laceration elsewhe re. No evidence of solid organ injury. Urinary bladder is quite distended. Prostate gland is moder ately enlarged. No acute fracture seen. Impression showed a swxa-oe-wnokhcnd free fluid in the uppe r abdomen is seen. The density fluid is more than that of simple fluid rather than blood. This favo red that this is not a trauma-related finding. However, correlation with clinical exam findings is r ecommended given the nonspecific nature of the fluid. Assessment And Plan: This is an 87-year-old male, who presents after a fall, on anticoagulation, wit h pain on the left side of his chest and abdomen, who has evidence of fluid collections around the sp namrata and liver of uncertain etiology. Due to his recent trauma, I suspect this is likely blood, as s uch I have recommended transfer to a trauma center as the patient is currently hemodynamically stable . Initially, he had some hemodynamic lability after a Brennan catheter was placed to decompress his se verely distended bladder. He had improvement and he got fluids, which he responded to quite well. Pricilla washburn remained hemodynamically stable in the ER after these initial maneuvers were performed. He was sta ble during my entire examination. However, as indicated, the patient perhaps has evidence of bleedin g related to the spleen and the liver, and as such, I recommend transfer to a trauma facility so that should the patient require intervention, this might be managed with interventional radiologic treatm ents as we do not have that capability at this facility. In addition, if the patient requires trauma laparotomy, he would likely benefit from management at a trauma center. I have explained the risks, benefits, and alternatives of the above-stated plan. The patient agreed to proceed as indicated. LEAH/SOLANGE Voice ID: [id number] Report ID: [id number]
--- NOTE | 2023-01-18 05:38 | EKG ---
Test Date: 2023-01-17 Test Time: 10:30:30 Security Risk Analyst: ZARINA MEASUREMENT RESULTS: Intervals: Rate: 57 HI: QRSD: 78 QT: 468 QTc: 455 [place]: P: HI: QRS: 50 T: 43 INTERPRETIVE STATEMENTS: Atrial fibrillation with slow ventricular response Abnormal ECG Compared to ECG 06/28/2022 18:21:47 Myocardial infarct finding no longer present Electronically Signed On 01-18-23 05:36:45 CDT by Jeffry Conrad
== END 2023-01-17 15:35 | disposition short-term general hospital (02) ==
LOC: ER 09:50
DX: S36.029A Unspecified contusion of spleen, initial encounter (principal); I95.9 Hypotension, unspecified; R33.9 Retention of urine, unspecified; W18.30XA Fall on same level, unspecified, initial encounter; I10 Essential (primary) hypertension; I48.91 Unspecified atrial fibrillation; E11.9 Type 2 diabetes mellitus without complications; Z79.01 Long term (current) use of anticoagulants
CPT/HCPCS: 85025; 36415; 86900; 83735; 86850; 86901; 81003; 82248; 84484; 80053; 70450; 72125; 71260; 74177; 73130; 73562; Q9967; J7030 ×2; 93005

== ENCOUNTER 2023-01-26 20:02 | Emergency (ER) | payer OTHER ==
--- OUTSIDE RECORDS SUMMARY | 2023-01-26 20:08 | XMS REPORT | Continuity of Care Document ---
:1935 Author Organization [facility] t Address [address] [place] [address] [address] [place] [address] Care Team Providers Name Role Phone Claude Dempsey MD Primary Care Physician CLAUDE DEMPSEY Attending Clinician Unavailable DAPHNEY MICHELLE Attending Clinician Unavailable YONATHAN BRASHER Attending Clinician Unavailable Osiris Buchanan MA Attending Clinician Unavailable Carloz Major Attending Clinician Unavailable KELSY RUSS Attending Clinician Unavailable Yonathan Brasher MD Attending Clinician DAPHNEY MICHELLE Admitting Clinician Unavailable Carloz Major Admitting Clinician Unavailable Payers Payer Name Policy Type Policy Number Effective Date Expiration Date S raiza AETNA MEDICARE [id number] 2013 2021 PPO 00:00:00 00:00:00 MEDICARE PLAN PPO [id number] [employer]ET[employer] MEDICARE PART B - [id number] MEDICARE Problems Condition Condition Condition Status Onset Resolution Last Treating Co mments Source Name Details Category Date Date Treatment Clinician Date SPLEEN SPLEEN Diagnosis Active 2022-2023-01-17 Ct moria LACERATION LACERATION 01-17 18:27:00 l Active 00:00: Cale 01/17/2023 00 [facility] TSDH TSDH Diagnosis Active 2023-01-21 Mem oria Active 01-17 15:42:00 l 01/17/2023 00:00: George ovalle [address] Abnormal Abnormal Disease Active ID glucose glucose 1-10 Health 00:00: 00 Encounter Encounter Disease Active ID for for 1-10 Health long-term long-term 00:00: (current) (current) 00 use of use of medication medication s s 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 12-08 He alth s s 00:00: 00 Malaise Malaise Disease Active UT and and 4 Health fatigue fatigue 00:00: 00 Abnormal Abnormal Disease Active 2020-09 ID chest chest 0- Health x-ray x-ray 00:00: 00 Anemia, Anemia, Disease Active 2020-09 UT mild mild 0-19 Health 00:00: 00 Benign Benign Disease Active 2020-09 UT essential essential 0-19 Heal th hypertensi hypertensi 00:00: on on 00 BPH BPH Disease Active 2020-09 UT without without 0-19 Health urinary urinary 00:00: obstructio obstructio 00 n n Elevated Elevated Disease Active 2020-09 UT prostate prostate 0-19 Health specific specific 00:00: antigen antigen 00 (PSA) (PSA) 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 0-19 He alth yceridemia yceridemia 00:00: 00 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 019 Health to to 00:00: 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 0-19 He alth ia ia 00:00: 00 Other iron Other iron Disease Active 2020-09 U T deficiency deficiency 0-19 He alth anemia anemia 00:00: 00 Prediabete Prediabete Disease Active 2020-09 U T s s 0-19 Health 00:00: 00 Rising PSA Rising PSA Disease Active 2020-09 U T level level 0-19 Health 00:00: 00 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 9-30 College dysfunctio dysfunctio [...] eye eye 00:00: of 00 Medicin e TRAUM TRAUM Diagnosis Active 2023-01-21 Mem oria SUBDR HEM SUBDR HEM 15:42:00 l WITH LOC WITH LOC George n STATUS STATUS UNKNOWN, UNKNOWN, Active [facility] Allergies, Adverse Reactions, Alerts Allergy Allergy Status Severity Reaction(s) Onset Inactive Treating Comm ents Source Name Type Date Date Clinician No Known DA Active U [facility] Allergie 2-14 Clear s 00:00: Rodriguez 00 [facility] No Known DA Active U 2005- [facility] Contrast [facility]- [place] Allerg[facility] 00:[facility] No Known DA Active U [facility]- [facility] Drug 0- [place] Allergie 00:00: [facility]ope [facility] 00 [facility] No Known DA Active U 2005- [facility] Food 0- [place] Allergie 00:00: [facility]ope [facility] No Known DA Active U 2006- [facility] Other 0- [place] Allergie 00:00: [facility]ope [facility] 00 [facility] No Known DA Active U 0 [facility] Drug 4-05 [place] Intolera 00:00: [facility]ope [facility]ces 00 [facility] l Social History Social Habit Start Date Stop Date Quantity Comments Source [facility] of tobacco Current sm[facility] Exposure to 2022-09-10 2022-09-20 Not sure [facility] SARS-CoV-2 (event) 00:00:00 10:03:00 Tobacco use and 2021-07-26 2021-07-26 Smokeless [facility] exposure 00:00:00 00:00:00 tobacco non-user Hospital Alcohol intake 2021-07-26 2021-07-26 Current drinker [facility] 00:00:00 00:00:00 of alcohol Hospital (finding) History of Social 2021-07-26 2021-07-[address] function 00:00:00 00:00:00 Hospital Alcohol Comment 2021-07-26 2021-07-26 daily [facility] 00:[facility] 00:00:00 Hospital Tobacco Comment 2013-08-15 2013-08-15 stopped 30 yrs [facility] 00:00:00 00:00:00 ago of Medicine Sex Ass[birth year] At [birth year] [facility] 00:[facility]00 Hospital Smoking Status Start Date Stop Date Source Ex-smoker 2021-06-23 00:00:00 2021-06-23 00:00:00 [facility] Medications Ordered Filled Start Stop Current Ordering Indication Dosage Frequency Signature Comments Components Source Medication Medication Date Date Medication? Clinician (SIG) Name Name potassium 2022-0 Yes 10meq QD Take 10 UT chloride CR 1-18 mEq by Health (Klor-Con 11:04: mouth 1 M10) 10 MEQ 45 (one) time ER tablet each day. Do not crush or chew. furosemide 3-0 Yes QD Take by UT (Lasix) 20 1-18 mouth 1 Health MG tablet 11:04: (one) time 45 each day. potassium 3-0 Yes 10meq QD Take 10 UT chloride [...] time 45 each day. amLODIPine 2021-09 Yes [id number] TAKE 1 UT (Norvasc) 5 2-21 TABLET BY Hea lth MG tablet 00:00: MOUTH 00 EVERY DAY amLODIPine 2021-09 Yes [id number] TAKE 1 UT (Norvasc) 5 2-21 TABLET BY Hea lth MG tablet 00:00: MOUTH 00 EVERY DAY amLODIPine 2021-09 Yes [id number] TAKE 1 UT (Norvasc) 5 2-21 TABLET BY Hea lth MG tablet 00:00: MOUTH 00 EVERY DAY amLODIPine 2021-09 Yes [id number] TAKE 1 UT (Norvasc) 5 2-21 TABLET BY Hea lth MG tablet 00:00: MOUTH 00 EVERY DAY metFORMIN 2021-09- No [id number] TAKE 1 UT (Glucophage 1-28 02-27 TABLET BY Mohamud alth ) 500 MG 00:00: 05:59 MOUTH tablet 00 :00 EVERY DAY metFORMIN 2021-09- No [id number] TAKE 1 UT (Glucophage 1-28 02-27 TABLET BY Mohamud alth ) 500 MG 00:00: 05:59 MOUTH tablet 00 :00 EVERY DAY metFORMIN 2021-09- No [id number] TAKE 1 UT (Glucophage 1-28 02-27 TABLET BY Mohamud alth ) 500 MG 00:00: 05:59 MOUTH tablet 00 :00 EVERY DAY metFORMIN 2021-09- No [id number] TAKE 1 UT (Glucophage 1-28 02-27 TABLET BY Mohamud alth ) 500 MG [...] MG tablet 00:00: 00 simvastatin 2021-09 Yes [id number] TAKE 1 UT (Zocor) 40 0-26 TABLET BY Heal th MG tablet 00:00: MOUTH 00 EVERY DAY. PATIENT NEEDS BLOODWORK IN DECEMBER simvastatin 2021-09 Yes [id number] TAKE 1 UT (Zocor) 40 0-26 TABLET BY Heal th MG tablet 00:00: MOUTH 00 EVERY DAY. PATIENT NEEDS BLOODWORK IN DECEMBER simvastatin 2021-09 Yes [id number] TAKE 1 UT (Zocor) 40 0-26 TABLET BY Heal th MG tablet 00:00: MOUTH 00 EVERY DAY. PATIENT NEEDS BLOODWORK IN DECEMBER simvastatin 2021-09 Yes [id number] TAKE 1 UT (Zocor) 40 0-26 TABLET BY Heal th MG tablet 00:00: MOUTH 00 EVERY DAY. PATIENT NEEDS BLOODWORK IN DECEMBER simvastatin 2021-09 Yes [id number] TAKE 1 UT (Zocor) 40 0-26 TABLET BY Heal th MG tablet 00:00: MOUTH 00 EVERY DAY. PATIENT NEEDS BLOODWORK IN DECEMBER simvastatin 2021-09 Yes [id number] TAKE 1 UT (Zocor) 40 0-26 TABLET BY Heal th MG tablet 00:00: MOUTH 00 EVERY DAY. PATIENT NEEDS BLOODWORK IN DECEMBER simvastatin 2021-09 Yes [id number] TAKE 1 UT (Zocor) 40 0-26 TABLET BY Heal th MG tablet 00:00: MOUTH 00 EVERY DAY. PATIENT NEEDS BLOODWORK IN DECEMBER simvastatin 2021-09 Yes [id number] TAKE 1 UT (Zocor) 40 0-26 TABLET BY Heal th MG tablet 00:00: MOUTH 00 EVERY DAY. PATIENT NEEDS BLOODWORK IN DECEMBER simvastatin 2021-09 Yes [id number] TAKE 1 UT (Zocor) 40 0-26 TABLET BY Heal th MG tablet 00:00: MOUTH 00 EVERY DAY. PATIENT NEEDS BLOODWORK IN DECEMBER sildenafil 2021-09 Yes [id number] TAKE 1 UT (Viagra) 0-06 TABLET 1 Health 100 MG 00:00: HOUR PRIOR tablet 00 TO ACTIVITY NEEDED Strength: 100 mg sildenafil 2021-09 Yes [id number] TAKE 1 UT (Viagra) 0-06 TABLET 1 Health 100 MG 00:00: HOUR PRIOR tablet 00 TO ACTIVITY NEEDED Strength: 100 mg sildenafil 2021-09 Yes [id number] TAKE 1 UT (Viagra) 0-06 TABLET 1 Health 100 MG 00:00: HOUR PRIOR tablet 00 TO ACTIVITY NEEDED Strength: 100 mg sildenafil 2021-09 Yes [id number] TAKE 1 UT (Viagra) 0-06 TABLET 1 Health 100 MG 00:00: HOUR PRIOR tablet 00 TO ACTIVITY NEEDED Strength: 100 mg sildenafil 2021-09 Yes [id number] TAKE 1 UT (Viagra) 0-06 TABLET 1 Health 100 MG 00:00: HOUR PRIOR tablet 00 TO ACTIVITY NEEDED Strength: 100 mg sildenafil 2021-09 Yes [id number] TAKE 1 UT (Viagra) 0-06 TABLET 1 Health 100 MG 00:00: HOUR PRIOR tablet 00 TO ACTIVITY NEEDED Strength: 100 mg sildenafil 2021-09 Yes [id number] TAKE 1 UT (Viagra) 0-06 TABLET 1 Health 100 MG 00:00: HOUR PRIOR tablet 00 TO ACTIVITY NEEDED Strength: 100 mg sildenafil 2021-09 Yes [id number] TAKE 1 UT (Viagra) 0-06 TABLET 1 Health 100 MG 00:00: HOUR PRIOR tablet 00 TO ACTIVITY NEEDED Strength: 100 mg sildenafil 2021-09 Yes [id number] TAKE 1 UT (Viagra) 0-06 TABLET 1 Health 100 MG 00:00: HOUR PRIOR tablet 00 TO ACTIVITY NEEDED Strength: 100 mg levothyroxi Yes [id number] TAKE 1 UT ne 9-19 TABLET BY Health (Synthroid, 00:00: MOUTH Levoxyl) 00 DAILY 125 MCG DUE FOR tablet APPOINTMEN T/BLOODWOR K IN DECEMBER levothyroxi Yes [id number] TAKE 1 UT ne 9-19 TABLET BY Health (Synthroid, 00:00: MOUTH Levoxyl) 00 DAILY 125 MCG DUE FOR tablet APPOINTMEN T/BLOODWOR K IN DECEMBER levothyroxi Yes [id number] TAKE 1 UT ne 9-19 TABLET BY Health (Synthroid, 00:00: MOUTH Levoxyl) 00 DAILY 125 MCG DUE FOR tablet APPOINTMEN T/BLOODWOR K IN DECEMBER levothyroxi Yes [id number] TAKE 1 UT ne 9-19 TABLET BY Health (Synthroid, 00:00: MOUTH Levoxyl) 00 DAILY 125 MCG DUE FOR tablet APPOINTMEN T/BLOODWOR K IN DECEMBER levothyroxi Yes [id number] TAKE 1 UT ne 9-19 TABLET BY Health (Synthroid, 00:00: MOUTH Levoxyl) 00 DAILY 125 MCG DUE FOR tablet APPOINTMEN T/BLOODWOR K IN DECEMBER levothyroxi Yes [id number] TAKE 1 UT ne 9-19 TABLET BY Health (Synthroid, 00:00: MOUTH Levoxyl) 00 DAILY 125 MCG DUE FOR tablet APPOINTMEN T/BLOODWOR K IN DECEMBER levothyroxi Yes [id number] TAKE 1 UT ne 9-19 TABLET BY Health (Synthroid, 00:00: MOUTH Levoxyl) 00 DAILY 125 MCG DUE FOR tablet APPOINTMEN T/BLOODWOR K IN DECEMBER levothyroxi Yes [id number] TAKE 1 UT ne 9-19 TABLET BY Health (Synthroid, 00:00: MOUTH Levoxyl) 00 DAILY 125 MCG DUE FOR tablet APPOINTMEN T/BLOODWOR K IN DECEMBER levothyroxi Yes [id number] TAKE 1 UT ne 9-19 TABLET BY Health (Synthroid, 00:00: MOUTH Levoxyl) 00 DAILY 125 MCG DUE FOR tablet APPOINTMEN T/BLOODWOR K IN DECEMBER lisinopril 2022-0 Yes [id number] TAKE 1 UT 20 MG 7-31 TABLET BY Health tablet 00:00: MOUTH 00 EVERY DAY DIRECTED lisinopril 2022-0 Yes [id number] TAKE 1 UT 20 MG 7-31 TABLET BY Health tablet 00:00: MOUTH 00 EVERY DAY DIRECTED lisinopril 2022-0 Yes [id number] TAKE 1 UT 20 MG 7-31 TABLET BY Health tablet 00:00: MOUTH 00 EVERY DAY DIRECTED lisinopril 2022-0 Yes [id number] TAKE 1 UT 20 MG 7-31 TABLET BY Health tablet 00:00: MOUTH 00 EVERY DAY DIRECTED lisinopril 2022-0 Yes [id number] TAKE 1 UT 20 MG 7-31 TABLET BY Health tablet 00:00: MOUTH 00 EVERY DAY DIRECTED lisinopril 2022-0 Yes [id number] TAKE 1 UT 20 MG 7-31 TABLET BY Health tablet 00:00: MOUTH 00 EVERY DAY DIRECTED lisinopril 2022-0 Yes [id number] TAKE 1 UT 20 MG 7-31 TABLET BY Health tablet 00:00: MOUTH 00 EVERY DAY DIRECTED lisinopril 2022-0 Yes [id number] TAKE 1 UT 20 MG 7-31 TABLET BY Health tablet 00:00: MOUTH 00 EVERY DAY DIRECTED lisinopril Yes [id number] TAKE 1 UT 20 MG 7-31 TABLET BY Health tablet 00:00: MOUTH 00 EVERY DAY DIRECTED potassium Yes 20meq QD Take 20 UT chloride CR 4-07 mEq by Health (Klor-Con 15:29: mouth 1 M20) 20 MEQ 02 (one) time ER tablet each day. Do not crush or chew. furosemide 0 Yes QD Take by UT (Lasix) 20 [...] (one) time 02 each day. levothyroxi Yes [id number] TAKE 1 UT ne 3-20 TABLET BY [facility] (Synthroid, 00:00: MOUTH Levoxyl) 00 DAILY 125 MCG DUE FOR tablet APPOINTMEN T/BLOODWOR K IN DECEMBER levothyroxi Yes [id number] TAKE 1 UT ne 3-20 TABLET BY [facility] (Synthroid, 00:00: MOUTH Levoxyl) 00 DAILY 125 MCG DUE FOR tablet APPOINTMEN T/BLOODWOR K IN DECEMBER metFORMIN Yes [id number] TAKE 1 U T (Glucophage 3-20 TABLET BY [facility] ) 500 MG 00:00: MOUTH tablet 00 EVERY DAY metFORMIN Yes [id number] TAKE 1 U T (Glucophage 3-20 TABLET BY [facility] ) 500 MG 00:00: MOUTH tablet 00 EVERY DAY metFORMIN Yes [id number] TAKE 1 U T (Glucophage 3-20 TABLET BY [facility] ) 500 MG 00:00: MOUTH tablet 00 EVERY DAY metFORMIN 0 Yes [id number] TAKE 1 U T (Glucophage 3-20 TABLET BY [facility] ) 500 MG 00:00: MOUTH tablet 00 EVERY DAY metFORMIN Yes [id number] TAKE 1 U T (Glucophage 3-20 TABLET BY [facility] ) 500 MG 00:00: MOUTH tablet 00 EVERY DAY metFORMIN 2021- No [id number] TAKE 1 UT (Glucophage 3-20 06-19 TABLET BY [facility] ) 500 MG 00:00: 04:59 MOUTH tablet 00 :00 EVERY DAY metFORMIN 2021- No [id number] TAKE 1 UT (Glucophage 3-20 06-19 TABLET BY [facility] ) 500 MG 00:00: 04:59 MOUTH tablet 00 :00 EVERY DAY simvastatin Yes [id number] TAKE 1 UT (Zocor) 40 2-25 TABLET BY Heal th MG tablet 00:00: MOUTH 00 EVERY DAY. PATIENT NEEDS BLOODWORK IN DECEMBER simvastatin Yes [id number] TAKE 1 UT (Zocor) 40 2-25 TABLET BY Heal th MG tablet 00:00: MOUTH 00 EVERY DAY. PATIENT NEEDS BLOODWORK IN DECEMBER lisinopril Yes [id number] TAKE 1 UT 20 MG 2-03 TABLET BY Health tablet 00:00: MOUTH 00 EVERY DAY DIRECTED lisinopril Yes [id number] TAKE 1 UT 20 MG 2-03 TABLET BY Health tablet 00:00: MOUTH 00 EVERY DAY DIRECTED sildenafil 2020-09 Yes [id number] TAKE 1 UT (Viagra) 2-21 TABLET 1 Health 100 MG 00:00: HOUR PRIOR tablet 00 TO ACTIVITY NEEDED sildenafil 2020-09 Yes [id number] TAKE 1 UT (Viagra) 2-21 TABLET 1 Health 100 MG 00:00: HOUR PRIOR tablet 00 TO ACTIVITY NEEDED lisinopriL 2020-09 Yes 20mg QD Take 20 mg M [facility] (PRINIVIL) 1-[address] 20 mg 18:25: daily. Hospita tablet 02 l simvastatin 2020-09 Yes 40mg QD Take 40 mg [facility] (ZOCOR) 40 1-[address] mg tablet 18:25: nightly. Hosp shekhar 02 l levothyroxi 2020-09 Yes 125ug QD Take 125 M ethodi ne 1-[address] (SYNTHROID) 18:25: mouth Hospi ta 125 mcg 02 daily. l tablet rivaroxaban 2020-09 Yes 15mg Take 15 mg [facility] (XARELTO) 1-[address] 15 mg 18:25: Hospita tablet 02 l sildenafiL 2020-09 Yes 100mg Q24H Take 100 Me [facility]odi (VIAGRA) 50 1-[address] MG tablet 18:25: mouth Hospita 02 daily as l needed for erectile dysfunctio n. metFORMIN 2020-09 Yes 500mg Q.5D Take 500 Met [facility] (GLUCOPHAGE 1-[address] ) 500 mg 18:25: mouth 2 Hospit a tablet 02 (two) l times a day with meals. docusate 2018-09 Yes 100mg Q2D Take 100 UT sodium 0-29 mg by Health (Colace) 00:00: mouth 100 MG 00 every capsule other day. Ferrous 2018-09 Yes 1{tbl} Q2D Take 1 UT Sulfate 0-29 tablet by LiquidText Dried ER 00:00: mouth (Slow Iron) 00 every 160 (50 Fe) other day. MG tablet controlled- release docusate 2018-09 Yes 100mg Q2D Take 100 UT sodium 0-29 mg by Health (Colace) 00:00: mouth 100 MG 00 every capsule other day. Ferrous 2018-09 Yes 1{tbl} Q2D Take 1 UT Sulfate 0-29 tablet by [facility] Dried ER 00:00: mouth (Slow Iron) 00 every 160 (50 Fe) other day. MG tablet controlled- release docusate 2018-09 Yes 100mg Q2D Take 100 UT sodium 0-29 mg by Health (Colace) 00:00: mouth 100 MG 00 every capsule other day. Ferrous 2018-09 Yes 1{tbl} Q2D Take 1 UT Sulfate 0-29 tablet by [facility]ried ER 00:00: mouth (Slow Iron) 00 every 160 (50 Fe) other day. MG tablet controlled- release docusate 2018-09 Yes 100mg Q2D Take 100 UT sodium 0-29 mg by Health (Colace) 00:00: mouth 100 MG 00 every capsule other day. Ferrous 2018-09 Yes 1{tbl} Q2D Take 1 UT Sulfate 0-29 tablet by [facility] ER 00:00: mouth (Slow Iron) 00 [...] Take 100 UT sodium 0-29 mg by [facility] (Colace) 00:00: mouth 100 MG 00 every [...] 100 UT sodium 0-29 01-18 mg by [facility] (Colace) 00:00: 00:00 mouth 100 MG 00 :00 every capsule other day. docusate 2018-09- No 100mg Q2D Take 100 UT sodium 0-29 01-18 mg by [facility] (Colace) 00:00: 00:00 mouth 100 MG 00 [...] simvastatin 2018-09 Yes 40mg Take 40 mg [facility] (ZOCOR) 40 0-25 by mouth Colle ge MG tablet 19:17: every of 41 evening. Medicin e lisinopril 2018-09 Yes 20mg Take 20 mg [facility] (PRINIVIL, 0-25 by mouth Colle ge ZESTRIL) 20 19:17: daily. of MG tablet 41 Medicin e LEVOTHYROXI 2018-09 Yes [facility] NE SODIUM 0-25 [place] 19:17: of 41 Medicin e hydrochloro 2018-09 Yes 25mg Take 25 mg [facility] thiazide 0-25 by mouth [place] (HYDRODIURI 19:17: daily. of L) 25 MG 41 Medicin tablet e XARELTO 15 2018-09 Yes 1{tbl} Take 1 Tab [facility]api MG TABS 0-08 by mouth [place] 00:00: daily. of 00 Medicin e levothyroxi Yes TAKE 1 [facility] ne 9-23 TABLET BY [place] (SYNTHROID) 00:00: MOUTH of 125 MCG 00 EVERY DAY Medicin tablet e sildenafil Yes TAKE 1 [facility] citrate 8-22 TABLET 1 [facility] (VIAGRA) 00:00: HOUR PRIOR of 100 MG 00 TO Medicin tablet ACTIVITY e NEEDED metformin Yes TAKE 1 [facility] (GLUCOPHAGE 8-07 TABLET BY [facility] lege ) 500 MG 00:00: MOUTH of [...] TABLET Health 15 MG 00:00: DAILY tablet rivaroxaban 2016-09 Yes TAKE 1 UT (Xarelto) [...] Procedure Date / Time Performed Performing Clinician [facility] e BASIC METABOLIC PANEL 2022-07-03 19:45:00 Claude Dempsey [facility] Plan of Care Planned Activity Planned Date Details Comments Source Future Scheduled 2022-12-07 SHINGLES VACCINES Method [facility] Test 23:48:13 (2 of 3) [code = SHINGLES VACCINES (2 of 3)] Future Scheduled 2022-12-07 COVID-19 VACCINE (5 Meth [facility] Test 23:48:13 - Booster for Moderna series) [code = COVID-19 VACCINE (5 - Booster for Moderna series)] Future Scheduled 2022-12-07 INFLUENZA VACCINE Method [facility] Test 23:48:13 [code = INFLUENZA VACCINE] Future Scheduled MEDICARE AWV [code [employer] Test = MEDICARE AWV] Medicine Future Scheduled TETANUS SHOT [facility] Matt ege of Test (ADULT) [code = Medicine TETANUS SHOT (ADULT)] Future Scheduled FALL SCREEN [code = [employer] Test FALL SCREEN] Medicine Future Scheduled PNEUMOVAX >=65 [facility] Co llege of Test (PPSV23) [code = Medicine PNEUMOVAX >=65 (PPSV23)] Future Scheduled PREVNAR >= 65 [facility] Col lege of Test (PCV13) [code = Medicine PREVNAR >= 65 (PCV13)] Future Scheduled FLU VACCINE > 6 [facility] C ollege of Test MONTHS [code = FLU Medicine VACCINE > 6 MONTHS] Encounters Start End Encounter Admission Attending Care Care Encounter Source Date/Time Date/Time Type Type Clinicians Facility Department ID 2023-01-17 Outpatient [facility] [id number] UT 14:36:03 [id number] [facility] 2023-01-12 Outpatient [facility] [id number] UT 11:41:29 [id number] [facility] 2022-12-22 Outpatient [facility] [id number] UT 13:36:12 [id number] [facility] 2022-09-20 Outpatient [facility] [id number] UT 17:22:59 [id number] [facility] 2022-09-10 Outpatient [facility] [id number] UT 10:54:26 [id number] [facility] 2022-08-31 Outpatient [facility] [id number] UT 10:15:46 [id number] [facility] 2022-07-03 Outpatient [facility] [id number] UT 14:00:52 [id number] [facility] 2022-06-29 Outpatient [facility] [id number] UT 19:18:02 [id number] [facility] 2023-09-20 2023-09-20 [facility] [id number] UT 10:30:00 10:30:00 CLAUDE [facility] 2023-01-30 2023-01-30 Outpatient JOSE JOSE [id number] [place] 15:30:00 15:30:00 00 davide Madsen 2023-01-17 2023-01-24 Inpatient DAPHNEY VALENCIA [facility] 20:01:00 16:00:00 2022-09-20 2022-09-20 Office Ke JONNY TURNER [id number] UT 10:30:00 11:01:21 Visit Claude MILLAN [id number] He alth [id number] 1 2022-07-03 2022-07-03 Office Ke JONNY TURNER [id number] UT 14:30:00 16:04:48 Visit Claude MILLAN [id number] He alth [id number] 1 2022-01-04 2022-01-04 Outpatient EYAD BRASHER [facility] [id number] [facility] 14:39:12 16:33:14 YONATHAN walsh Medicin wu 2021-12-26 2021-12-26 Telephone Osiris Buchanan JONNY TURNER [id number] ID 00:00:00 00:00:00 Osiris Buchanan [id number] Health [id number] 1 2021-12-08 2021-12-08 Office Ke JONNY TURNER [id number] UT 11:00:00 11:15:00 Visit Claude MILLAN [id number] He alth [id number] [id number] 1 2021-10-17 2021-10-17 Outpatient Pedrito, HCACL LABO [id number] [facility] 15:20:00 15:20:00 Carloz 73 [facility] 2021-10-17 2021-10-17 Outpatient EL Pedrito, HCATO HCATO [id number] [facility] 10:16:00 10:16:00 Carloz [facility] 2021-10-17 2021-10-17 Outpatient EL Pedrito, HCATO RADI [id number] [facility] 09:53:00 09:53:00 Carloz 22 [facility] 2021-08-23 2021-08-23 Refill JONNY Dempsey [id number] UT 00:00:00 00:00:00 Claude TOWER [id number] He alth [id number] 1 2021-07-26 2021-07-26 Emergency KELSY RUSS [facility] [id number] [facility] 00:00:00 00:00:[address] 2021-07-25 2021-07-25 Refill JONNY Dempsey [id number] ID 00:00:00 00:00:00 Claude MILLAN [id number] He alth 9.2.7.2.686 [id number] 1 2021-06-23 2021-06-23 Office JONNY Dempsey [id number] ID 10:01:59 14:15:39 Visit Claude MILLAN [id number] He alth 9.2.7.2.686 [id number] 1 2019-06-27 2019-06-27 Office EYAD Brasher [id number] [facility] 13:45:21 13:50:21 Visit Yonathan Tucker AMBULATOR 350.1.13.21 College Y 0.2.7.2.686 of [id number] Medi tahir 300 e Results Test Description [...] See_Comment The eGFR i s based on [id number]) the CKD-EPI 202 1 equation. To ca lculate the new eGFR fr om a previous Creati nine or Meera cat, go to [email or web address].kid ute.org/ professionals/k doqi/gfr %5Fcalculator [...] . SODIUM (test code = 135 mmol/L 942-150 5524-2) POTASSIUM (test code = 4.2 mmol/L 3.5-5.3 2823-3) CHLORIDE (test code = 102 mmol/L 98-110 2075-0) CARBON DIOXIDE (test 26 mmol/L 20-32 code = 8-9) CALCIUM (test code = 10.1 mg/dL 8.6-10.3 REPORT [id number]) COMMENT:FASTING :NO RAC (test code = RAC) Performing Organization Information: ? ?Site ID: [facility] ? ?Name: [facility] ? ?Address: [address] [place] [id number] ? ?Director: MARK ANTHONY SANCHEZ MD ID HealthSYNOVIAL FLD CELL [id number] 18:56:00 Test Item Value Reference Range Interpretation [...] DR CORREA- XR FLUORO NDL 2021-10-17 16:37:00 [facility] : 1935 Sex: M Patient Name: MARK ANTHONY LAMBERT Unit No: [id number] EXAMS: CPT CODE: [id number] XR FLUORO NDL 38888 FLUOROSCOPICALLY GUIDED ASPIRATION OF THE LEFT KNEE [...] Isiah Correa MD CC: Carloz Major Technologist: RT. Jose Antonio(R) Transcribed D/ (1637) Benny[facility] NAME: MARK ANTHONY LAMBERT [address] [facility] PHYS: Carloz Gallegos MD : 1935 AGE:86 SEX: M [place], [place] [address] LOC: Y.LAB PHONE #: [phone] EXAM DATE: 10/17/2021 STATUS: REG CLI FAX #: [phone] RAD #: [id number] D/C DT PAGE 1 Signed Report Patient Name: MARK ANTHONY LAMBERT Unit No: [id number] EXAMS: CPT CODE: [id number] XR FLUORO NDL 05967 (Continued) Orig Print D/T: S: 10/17/2021 (1640) [facility] NAME: MARK ANTHONY LAMBERT [address] [place], [place] [address] PHYS: Carloz Gallegos MD : 1935 AGE: 86 SEX: M [place], [place] [address] LOC: Y.LAB PHONE #: [phone] EXAM DATE: 10/17/2021 STATUS: REG CLI FAX #: [phone] RAD #: [id number] D/C DT PAGE 2 Signed Report- XR FLUORO NDL 2021-10-17 16:37:00 [facility] : 1935 Sex: M Patient Name: MARK ANTHONY LAMBERT Unit No: [id number] EXAMS: CPT CODE: [id number] XR FLUORO NDL 09291 FLUOROSCOPICALLY GUIDED ASPIRATION OF THE LEFT KNEE [...] Major Technologist: Tash Zavala RT.(R) Transcribed D/ (0357) [facility] MARK ANTHONY LAMBERT [address] [facility] PHYS: Carloz Gallegos MD : 1935 AGE: 86 SEX: M [place], [place] [address] LOC: Y.RAD PHONE #: [phone] EXAM DATE: 10/17/2021 STATUS: DEP CLI FAX #: [phone] RAD #: [id number] D/C DT PAGE 1 Signed Report Patient Name:MARK ANTHONY LAMBERT Unit No: [id number] EXAMS: CPT CODE: [id number] XR FLUORO NDL 96002 (Continued) Orig Print D/T: S: 10/17/2021 (1640) [facility] NAME: MARK ANTHONY LAMBERT [address] [facility] PHYS: Carloz Gallegos MD : 1935 AGE: 86 SEX: M [place], [place] [address] LOC: ZIYAD PHONE #: [phone] EXAM DATE: 10/17/2021 STATUS: DEP CLI FAX #: [phone] RAD #: [id number] D/C DT PAGE 2 Signed ReportCBC W/AUTO [id number] 12:26:00 Test Item Value Reference Range Interpretation [...] % 0-0 N code = NRBC) SED [id number] 12:26:00 Test Item Value Reference Range Interpretation Comments SED RATE (test code = SEDW) 6 mm/hr 0-15 N C REACTIVE [id number] 11:50:00 Test Item Value Reference Range Interpretation Comments C REACTIVE PROTEIN (test code = < 0.2 mg/dL <0.9 CRP)
[2023-01-26 22:09] LABS: Specific Gravity 1.016 (1.005-1.030); Urine Bacteria 20-50 /HPF (<20); Urine Bilirubin NEGATIVE (Negative); Urine Blood 3+ (OVER) (Negative); Urine Clarity Extremely Turbid (Clear); Urine Color Light-Orange (Yellow); Urine Crystals Unidentified Many /HPF (None Seen); Urine Glucose NEGATIVE (Negative); Urine Mucus 2+ /HPF (None Seen); Urine Protein 3+ (Negative); Urine RBC >50 /HPF (None Seen); Urine Urobilinogen Normal (Normal); Urine WBC Clump Many /HPF (None Seen)
--- NOTE | 2023-01-26 23:58 | ER ---
Nurse's Notes [facility] Name: Lauri Lambert Age: 87 yrs Sex: Male : 1935 Arrival Date: 01/26/2023 Time: 20:02 Bed 11 Private MD: Diagnosis: UTI/ Urinary tract infection, site not specified Presentation: 01/26 20:39 Chief complaint: Patient states: i pulled on my catheter when trying to get out of the bp shower and now there is blood in my urine. Coronavirus screen: Client denies travel out of the [place] in the last 14 days. At this time, the client does not indicate any symptoms associated with coronavirus-19. Ebola Screen: No symptoms or risks identified at this time. Initial Sepsis Screen: Does the patient meet any 2 criteria? No. Patient's initial sepsis screen is negative. Does the patient have a suspected source of infection? No. Patient's initial sepsis screen is negative. Risk Assessment: Do you want to hurt yourself or someone else? Patient reports no desire to harm self or others. Onset of symptoms. 20:39 Method Of Arrival: Ambulatory bp 20:39 Acuity: HAYDER 3 bp Triage Assessment: 20:43 General: Appears in no apparent distress. comfortable, Behavior is calm, cooperative. bp Pain: Denies pain. EENT: No deficits noted. No signs and/or symptoms were reported regarding the EENT system. Neuro: No deficits noted. Deal Agitation-Sedation Scale (RASS): 0 - Alert and Calm Level of Consciousness is awake, alert, obeys commands, Oriented to person, place, time, situation. Cardiovascular: No deficits noted. Denies chest pain, shortness of breath, Capillary refill < 3 seconds Clubbing of nail beds is absent JVD is absent Patient's skin is warm and dry. Respiratory: No deficits noted. Airway is patent Respiratory effort is even, unlabored, Respiratory pattern is regular, symmetrical. GI: No deficits noted. No signs and/or symptoms were reported involving the gastrointestinal system. : Reports blood in urine. Derm: No deficits noted. No signs and/or symptoms reported regarding the dermatologic system. Skin is intact, is healthy with good turgor, Skin is dry, Skin is normal, Skin temperature is warm. Musculoskeletal: No deficits noted. No signs and/or symptoms reported regarding the musculoskeletal system. Circulation, motion, and sensation intact. Range of motion: intact in all extremities. Historical: - Home Meds: 20:43 Glucophage Oral 500 mg [Active]; Klor-Con M20 20 mEq Oral Tablet, ER Particles/Crystals bp [Active]; Lasix 20 mg Oral tablet [Active]; Levoxyl 125 mcg Oral tablet [Active]; lisinopril 40 mg Oral tablet [Active]; Norvasc 5 mg Oral tablet [Active]; simvastatin 40 mg Oral tab [Active]; Xarelto 15 mg Oral tab 1 tab [Active]; - PMHx: 20:43 Atrial fibrillation; diabetes mellitus; Hypertensive disorder; Hypothyroidism; bp - PSHx: 20:43 Appendectomy; knee replacement, left; bp - Immunization history:: Adult Immunizations up to date, Client reports receiving the 2nd dose of the Covid vaccine. - Social history:: Smoking status: Patient/guardian denies using tobacco, but has a distant history of tobacco abuse, Patient/guardian denies using alcohol. Screenin:10 [facility] ED Fall Risk Assessment (Adult) History of falling in the last 3 months, pf1 including since admission No falls in past 3 months (0 pts) Confusion or Disorientation No (0 pts) Intoxicated or Sedated No (0 pts) Impaired Gait Yes (1 pt) Mobility Assist Device Used Yes (1 pt) Altered Elimination Yes (1 pt) Score/Fall Risk Level 3 or more points = High Risk Oriented to surroundings, Maintained a safe environment, Educated pt \T\ family on fall prevention, incl call for assistance when getting out of bed, Assessed \T\ reinforced patient's understanding of fall precautions, Provided non-skid footwear, Hourly rounding (assess needs \T\ fall precautionary measures) done, Used ambulatory aids as needed (educated on \T\ assisted with), Used gait belt as appropriate Implemented a Fall Risk Plan of Care, Apply high fall risk patient identification: yellow non skid footwear/ fall signage, Remained w/in arm's length of patient and in sight while toileting, Offered frequent toileting (1:1 observation), Remained with patient while ambulating, Utilized family, sitter, or virtual university administrator as indicated. 21:10 Abuse screen: Denies threats or abuse. Nutritional screening: No deficits noted. pf1 Tuberculosis screening: No symptoms or risk factors identified. Assessment: 21:10 General: Appears in no apparent distress. comfortable, well groomed, well developed, pf1 Behavior is calm, cooperative, appropriate for age, quiet. 21:10 Pain: Denies pain. pf1 21:10 Neuro: No deficits noted. Level of Consciousness is awake, alert, obeys commands, pf1 Oriented to person, place, time, situation. Cardiovascular: No deficits noted. Capillary refill < 3 seconds Patient's skin is warm and dry. Respiratory: No deficits noted. Airway is patent Trachea midline Respiratory effort is even, unlabored, Respiratory pattern is regular, symmetrical. GI: No deficits noted. No signs and/or symptoms were reported involving the gastrointestinal system. : Reports hematuria after mason tubing was pulled when getting out of shower. EENT: No deficits noted. No signs and/or symptoms were reported regarding the EENT system. 22:00 Reassessment: Patient appears in no apparent distress at this time. Patient and/or pf1 family updated on plan of care and expected duration. Pain level reassessed. Patient is alert, oriented x 3, equal unlabored respirations, skin warm/dry/pink. 23:00 Reassessment: Patient appears in no apparent distress at this time. Patient and/or pf1 family updated on plan of care and expected duration. Pain level reassessed. Patient is alert, oriented x 3, equal unlabored respirations, skin warm/dry/pink. 01/27 00:00 Reassessment: Patient appears in no apparent distress at this time. Patient and/or pf1 family updated on plan of care and expected duration. Pain level reassessed. Patient is alert, oriented x 3, equal unlabored respirations, skin warm/dry/pink. Vital Signs: 01/26 20:39 BP 132 / 80; Pulse 91; Resp 17 S; Temp 97.9(O); Pulse Ox 97% on R/A; Weight 77.11 kg bp (R); Height 5 ft. 8 in. (R); 01/27 00:00 BP 133 / 72; Pulse 89; Resp 16; Pulse Ox 99% on R/A; Pain 0/10; pf1 01/26 20:39 Body Mass Index 25.85 (77.11 kg, 172.72 cm) bp 01/27 00:00 Pain Scale: Adult pf1 ED Course: 01/26 00:00 No provider procedures requiring assistance completed. Patient did not have IV access pf1 during this emergency room visit. 20:04 Patient arrived in ED. jj6 20:34 Gustavo rGey DO is Attending Physician. ms3 20:43 Triage completed. bp 20:43 Arm band placed on right wrist. bp 21:10 Patient has correct armband on for positive identification. Bed in low position. Call pf1 light in reach. 23:53 Eddie Michaels MD is Referral Physician. ms3 01/27 00:40 Mason cath removed intact, balloon deflated, previous mason removed. pf1 00:45 Mason cath inserted, using sterile technique, 16 Fr., by me, balloon inflated, to pf1 gravity drainage, returned bloody urine. Patient tolerated well. Administered Medications: 00:40 Drug: Cefdinir PO 600 mg Route: PO; pf1 00:55 Follow up: Response: No adverse reaction; Marked relief of symptoms pf1 Medication: 00:50 VIS not applicable for this client. pf1 Outcome: 01/26 23:57 Discharge ordered by . ms3 01/27 00:55 Discharged to home ambulatory, with family. pf1 Condition: improved Discharge instructions given to patient, Instructed on discharge instructions, follow up and referral plans. Demonstrated understanding of instructions, follow-up care, medications, Prescriptions given X 1. 00:55 Patient left the ED. pf1 Addendum: 01/29/2023 12:00 Addendum: Culture Results: Positive urine culture. Bacteria is resistant to, has j l7 intermediate sensitivity, or is not tested against prescribed antibiotics. Report given to MARYLIN for further evaluation and then to real time analyst for follow up with patient. Phone call Attempt #1 Pt reports improvement in symptoms, no need for additional antibiotics per ERP Javad Haq. Signatures: Arnulfo Liu RN RN jl7 Alfonso Floyd RN RN bp Gustavo Grey DO DO ms3 Lolita Linda jj6 Audrey Wilkins RN RN pf1 Corrections: (The following items were deleted from the chart) 01/27 07:34 01:58 Patient left the ED. pf1 pf1
--- NOTE | 2023-01-26 23:58 | EDPHYS ---
Physician Documentation [facility] Name: Lauri Lambert Age: 87 yrs Sex: Male : 1935 Arrival Date: 01/26/2023 Time: 20:02 Bed 11 Private MD: ED Physician Gustavo Grey HPI: 01/27 00:01 This 87 yrs old Male presents to ER via Ambulatory with complaints of Problem With ms3 Urinary Catheter, Blood In Catheter. 00:01 87-year-old male presents for change in urine color that began today. Patient states he ms3 did pull his catheter approximately 4 PM and then after that time noticed darker urine. Patient denies pain. Patient denies alleviating or inciting factors. Historical: - Home Meds: 01/26 20:43 Glucophage Oral 500 mg [Active]; Klor-Con M20 20 mEq Oral Tablet, ER Particles/Crystals bp [Active]; Lasix 20 mg Oral tablet [Active]; Levoxyl 125 mcg Oral tablet [Active]; lisinopril 40 mg Oral tablet [Active]; Norvasc 5 mg Oral tablet [Active]; simvastatin 40 mg Oral tab [Active]; Xarelto 15 mg Oral tab 1 tab [Active]; - PMHx: 20:43 Atrial fibrillation; diabetes mellitus; Hypertensive disorder; Hypothyroidism; bp - PSHx: 20:43 Appendectomy; knee replacement, left; bp - Immunization history:: Adult Immunizations up to date, Client reports receiving the 2nd dose of the Covid vaccine. - Social history:: Smoking status: Patient/guardian denies using tobacco, but has a distant history of tobacco abuse, Patient/guardian denies using alcohol. ROS: 01/27 00:01 Constitutional: Negative for fever, and chills. Neck: Negative for injury, pain, and ms3 swelling, Cardiovascular: Negative for chest pain, and palpitations. Respiratory: Negative for shortness of breath, cough, wheezing, and pleuritic chest pain, Abdomen/GI: Negative for abdominal pain, nausea, vomiting, diarrhea, and constipation, MS/Extremity: Negative for injury and deformity, Skin: Negative for injury, rash, and discoloration, Neuro: Negative for headache, weakness, numbness, tingling. : Positive for urine color change. Exam: 00:02 Constitutional: This is a well developed, well nourished patient who is awake, alert, ms3 and in no acute distress. Head/Face: Normocephalic, atraumatic. Neck: Trachea midline, no cervical lymphadenopathy. Supple, full range of motion without nuchal rigidity, or vertebral point tenderness. No Meningismus. Chest/axilla: Normal chest wall appearance and motion. Nontender with no deformity. Cardiovascular: Regular rate and rhythm with a normal S1 and S2. No gallops, murmurs, or rubs. Normal PMI, no JVD. No pulse deficits. Respiratory: Lungs have equal breath sounds bilaterally, clear to auscultation and percussion. No rales, rhonchi or wheezes noted. No increased work of breathing, no retractions or nasal flaring. Abdomen/GI: Soft, non-tender, with normal bowel sounds. No distension or tympany. No guarding or rebound. No evidence of tenderness throughout. Skin: Warm, dry with normal turgor. Normal color with no rashes, no lesions, and no evidence of cellulitis. MS/ Extremity: Pulses equal, no cyanosis. Neurovascular intact. Full, normal range of motion. 00:02 : a mason is noted, to gravity drainage, urine is cloudy, blood tinged. Vital Signs: 01/26 20:39 BP 132 / 80; Pulse 91; Resp 17 S; Temp 97.9(O); Pulse Ox 97% on R/A; Weight 77.11 kg bp (R); Height 5 ft. 8 in. (R); 01/27 00:00 BP 133 / 72; Pulse 89; Resp 16; Pulse Ox 99% on R/A; Pain 0/10; pf1 01/26 20:39 Body Mass Index 25.85 (77.11 kg, 172.72 cm) bp 01/27 00:00 Pain Scale: Adult pf1 MDM: 01/26 20:48 Patient medically screened. ms3 01/27 00:02 Differential diagnosis: UTI, Mason catheter problem, Urethral irritation. Data ms3 reviewed: vital signs, nurses notes, lab test result(s), and as a result, I will discharge patient. I considered the following discharge prescriptions or medication management in the emergency department Medications were administered in the Emergency Department. See MAR. Counseling: I had a detailed discussion with the patient and/or guardian regarding: the historical points, exam findings, and any diagnostic results supporting the discharge/admit diagnosis, lab results, the need for outpatient follow up, to return to the emergency department if symptoms worsen or persist or if there are any questions or concerns that arise at home. Response to treatment: the patient's symptoms have mildly improved after treatment, and as a result, I will discharge patient. Special discussion: I discussed with the patient/guardian in detail that at this point there is no indication for admission to the hospital. It is understood, however, that if the symptoms persist or worsen the patient needs to return immediately for re-evaluation. 01/26 20:49 Order name: Urinalysis W/Microscopic; Complete Time: 23:50 ms3 01/26 22:12 Order name: Urine Culture EDMS 01/26 23:58 Order name: Mason: Change Mason; Complete Time: 00:50 ms3 Administered Medications: 00:40 Drug: Cefdinir PO 600 mg Route: PO; pf1 00:55 Follow up: Response: No adverse reaction; Marked relief of symptoms pf1 Disposition Summary: 01/26/23 23:57 Discharge Ordered Location: Home ms3 Condition: Stable ms3 Diagnosis - UTI/ Urinary tract infection, site not specified ms3 Followup: ms3 - With: Eddie Michaels MD - When: 2 - 3 days - Reason: Recheck today's complaints Discharge Instructions: - Discharge Summary Sheet ms3 - Urinary Tract Infection, Adult ms3 Forms: - Medication Reconciliation Form ms3 - Thank You Letter ms3 - Antibiotic Education ms3 - Prescription Opioid Use ms3 Prescriptions: - cefpodoxime 200 mg Oral Tablet - take 1 tablet by ORAL route every 12 hours with food; 20 tablet; Refills: 0, ms3 Product Selection Permitted Signatures: Dispatcher [employer] EDMS Alfonso Floyd, RN RN Gustavo Zavala DO DO ms3 Audrey Wilkins RN RN pf1
[2023-01-27] MEDS ORDERED: CEFDINIR 300 MG CAP PO ONE (00:35)
[2023-01-27 02:03] VITALS: BP 132/80; TEMP 97.9; O2SAT 97
== END 2023-01-27 01:58 | disposition home or self-care (01) ==
LOC: ER 20:02
DX: N39.0 Urinary tract infection, site not specified (principal)
CPT/HCPCS: 51702; 81001; 87077; 87086; 87088; 87186; 99284

== ENCOUNTER 2023-03-31 12:13 | Emergency (ER) | payer OTHER ==
--- OUTSIDE RECORDS SUMMARY | 2023-03-31 12:20 | XMS REPORT | Continuity of Care Document ---
:1935 Author Organization [facility] t Address [address] [facility]. [address] [place] [address] Care Team Providers Name Role Phone Claude Dempsey MD Primary Care Physician CLAUDE DEMPSEY Attending Clinician Unavailable Stoney Enamorado Attending Clinician Unavailable Lucille Cobb APRN Attending Clinician DAPHNEY MICHELLE Attending Clinician Unavailable Osiris Buchanan MA Attending Clinician Unavailable Carloz Major Attending Clinician Unavailable KELSY RUSS Attending Clinician Unavailable Stoney Enamorado Admitting Clinician Unavailable Carloz Major Admitting Clinician Unavailable DAPHNEY MICHELLE Admitting Clinician Unavailable Payers Payer Name Policy Type Policy Number Effective Date Expiration Date S ource [employer]ET[employer] MEDICARE [id number] 2013 2021 PPO 00:00:00 00:00:00 Problems Condition Condition Condition Status Onset Resolution Last Treating Co mments Source Name Details Category Date Date Treatment Clinician Date SPLEEN SPLEEN Diagnosis Active 2023-01-17 [place] LACER[place] LACERATION 01-17 18:27:00 l Active 00:00: Cale 01/17/2023 00 [facility] TSDH TSDH Diagnosis Active 2023-01-21 Mem oria Active 5 15:42:00 l 01/17/2023 00:00: George ovalle [address] Abnormal Abnormal Disease Active [facility] glucose glucose 1-10 Health 00:00: 00 Encounter Encounter Disease Active [facility] for for 1-10 Health long-term long-term 00:00: [...] 2020-09 U T dism due dism due 0- Health to to 00:00: acquired acquired 00 [...] T level level 0-19 Health 00:00: 00 TRAUM TRAUM Diagnosis Active 2023-01-21 Mem oria SUBDR HEM SUBDR HEM 15:42:00 l WITH LOC WITH LOC George n STATUS STATUS UNKNOWN, UNKNOWN, Active [facility] Allergies, Adverse Reactions, Alerts Allergy Allergy Status Severity Reaction(s) Onset Inactive Treating Comm ents Source Name Type Date Date Clinician No Known DA Active U [facility]ie 6-16 Clear s 00:00: Rodriguez 00 [facility] No Known DA Active U [facility] Allergie 2-14 Clear s 00:00: Rodriugez 00 [facility] No Known DA Active U 2005-09 [facility] [place] [facility] No Known DA Active U 2005-09 [facility] Drug 0- [place] Allergie 00:[facility]: [facility] No Known DA Active U 2005-09 [facility] Food 0 [place] Allergie 00:[facility]: [facility] No Known DA Active U 2005-09 [facility] Other 0 [place] Allergie 00:00: [facility] No Known DA Active U [facility] Drug 4-05 [place] [facility] 00:[facility]: [facility] Social History Social Habit Start Date Stop Date Quantity Comments Source [facility] of tobacco Current [facility] Exposure to 2023-02-02 2023-02-12 Not sure [facility] SARS-CoV-2 (event) 00:00:00 09:16:00 Tobacco use and 2021-07-26 2021-07-26 Smokeless [facility] exposure 00:00:00 00:00:00 tobacco non-user Hospital Alcohol intake 2021-07-26 2021-07-26 Current drinker [facility] 00:00:00 00:00:00 of alcohol Hospital (finding) History of Social 2021-07-26 2021-07-[address] function 00:00:00 00:00:00 Hospital Alcohol Comment 2021-07-26 2021-07-26 daily [facility] 00:[facility]00 [facility] Sex Assigned At [birth year] [facility] Smoking Status Start Date Stop Date Source Ex-smoker 2021-06-23 00:00:00 2021-06-23 00:00:00 [facility] Medications Ordered Filled Start Stop Current Ordering Indication Dosage Frequency Signature Comments Components Source Medication Medication Date Date Medication? Clinician (SIG) Name Name potassium 2023-0 Yes 7.5meq QD Take 7.5 [facility] chloride CR 6-12 mEq by Health (Klor-Con 18:50: mouth 1 M10) 10 MEQ 15 (one) time ER tablet each day. Do not crush or chew. LIQUID FORM furosemide 2023-0 Yes QD Take by [facility] (Lasix) 20 6-12 mouth 1 Health MG tablet 18:50: (one) time 15 each day. potassium 2023-0 Yes 7.5meq QD Take 7.5 [facility] chloride CR 6-12 mEq by Health (Klor-Con 18:50: mouth 1 M10) 10 MEQ 15 (one) time ER tablet each day. Do not crush or chew. LIQUID FORM furosemide 2023-0 Yes QD Take by [facility] (Lasix) 20 6-12 mouth 1 Health MG tablet 18:50: (one) time 15 each day. potassium 2023-0 Yes 7.5meq QD Take 7.5 [facility] chloride CR 6-12 mEq by Health (Klor-Con 18:50: mouth 1 M10) 10 MEQ 15 (one) time ER tablet each day. Do not crush or chew. LIQUID FORM furosemide 2023-0 Yes QD Take by [facility] (Lasix) 20 6-12 mouth 1 Health MG tablet 18:50: (one) time 15 each day. finasteride 2023-0 Yes 5mg QD Take 5 mg U T (Proscar) 5 6-07 by mouth 1 He alth MG tablet 00:00: (one) time 00 each day. finasteride 2023-0 Yes 5mg QD Take 5 mg U T (Proscar) 5 6-07 by mouth 1 He alth MG tablet 00:00: (one) time 00 each day. finasteride 2023-0 Yes 5mg QD Take 5 mg U T (Proscar) 5 6-07 by mouth 1 He alth MG tablet 00:00: (one) time 00 each day. potassium 2023-0 Yes 10meq QD Take 10 UT chloride CR 6-02 mEq by Health (Klor-Con 10:44: mouth 1 M10) 10 MEQ 33 (one) time ER tablet each day. Do not crush or chew. furosemide 2023-0 Yes QD Take by UT (Lasix) 20 6-02 mouth 1 Health MG tablet 10:44: (one) time 33 each day. potassium 2023-0 Yes 10meq QD Take 10 UT chloride CR 6-02 mEq by Health (Klor-Con 10:44: mouth 1 M10) 10 MEQ 33 (one) time ER tablet each day. Do not crush or chew. furosemide 3-0 Yes QD Take by UT (Lasix) 20 6-02 mouth 1 Health MG tablet 10:44: (one) time 33 each day. potassium 2023-0 Yes 10meq QD Take 10 UT chloride CR 6-02 mEq by Health (Klor-Con 10:44: mouth 1 M10) 10 MEQ 33 (one) time ER tablet each day. Do not crush or chew. furosemide 3-0 Yes QD Take by UT (Lasix) 20 6-02 mouth 1 Health MG tablet 10:44: (one) time 33 each day. metFORMIN 2022-0 2022- Yes [id number] TAKE 1 UT (Glucophage 6-10 12- TABLET BY He alth ) 500 MG 00:00: 04:59 MOUTH tablet 00 :00 EVERY DAY metFORMIN 2022-0 2022- Yes [id number] TAKE 1 UT (Glucophage 6-02 - TABLET BY [facility] ) 500 MG 00:00: 04:59 MOUTH tablet 00 :00 EVERY DAY metFORMIN 2022-0 2022- Yes [id number] TAKE 1 UT (Glucophage 6-02 - TABLET BY [facility] ) 500 MG 00:00: 04:59 MOUTH tablet 00 :00 EVERY DAY metFORMIN 2022-0 2022- Yes [id number] TAKE 1 UT (Glucophage 6-02 - TABLET BY [facility] ) 500 MG 00:00: 04:59 MOUTH tablet 00 :00 EVERY DAY metFORMIN 2022-0 2022- Yes [id number] TAKE 1 UT (Glucophage 6-02 - TABLET BY [facility] ) 500 MG 00:00: 04:59 MOUTH tablet 00 :00 EVERY DAY tamsulosin 2022-0 Yes .4mg QD Take 0.4 UT (Flomax) 5-24 mg by Health 0.4 MG 24 00:00: mouth 1 hr capsule 00 (one) time each day. tamsulosin 2022-0 Yes .4mg QD Take 0.4 UT (Flomax) 5-24 mg by [facility] 0.4 MG 24 00:00: mouth 1 hr capsule 00 (one) time each day. tamsulosin Yes .4mg QD Take 0.4 UT (Flomax) 5-24 mg by Health 0.4 MG 24 00:00: mouth 1 hr capsule 00 (one) time each day. simvastatin Yes [id number] TAKE 1 UT (Zocor) 40 5-11 TABLET BY Heal th MG tablet 00:00: MOUTH 00 EVERY DAY. PATIENT NEEDS BLOODWORK IN DECEMBER simvastatin Yes [id number] TAKE 1 UT (Zocor) 40 5-11 TABLET BY [facility]al th MG tablet 00:00: MOUTH 00 EVERY DAY. PATIENT NEEDS BLOODWORK IN DECEMBER simvastatin Yes [id number] TAKE 1 UT (Zocor) 40 5-11 TABLET BY [facility]al th MG tablet 00:00: MOUTH 00 EVERY DAY. PATIENT NEEDS BLOODWORK IN DECEMBER simvastatin Yes [id number] TAKE 1 UT (Zocor) 40 5-11 TABLET BY [facility]al th MG tablet 00:00: MOUTH 00 EVERY DAY. PATIENT NEEDS BLOODWORK IN DECEMBER simvastatin Yes [id number] TAKE 1 UT (Zocor) 40 5-11 TABLET BY [facility] MG tablet 00:00: MOUTH 00 EVERY DAY. PATIENT NEEDS BLOODWORK IN DECEMBER simvastatin Yes [id number] TAKE 1 UT (Zocor) 40 5-11 TABLET BY [facility]al th MG tablet 00:00: MOUTH 00 EVERY DAY. PATIENT NEEDS BLOODWORK IN DECEMBER levothyroxi Yes [id number] TAKE 1 UT ne 3-28 TABLET BY Health (Synthroid, 00:00: MOUTH Levoxyl) 00 DAILY 125 MCG DUE FOR tablet APPOINTMEN T/BLOODWOR K IN DECEMBER levothyroxi Yes [id number] TAKE 1 UT ne 3-28 TABLET BY Health (Synthroid, 00:00: MOUTH Levoxyl) 00 DAILY 125 MCG DUE FOR tablet APPOINTMEN T/BLOODWOR K IN DECEMBER levothyroxi Yes [id number] TAKE 1 UT ne 3-28 TABLET BY Health (Synthroid, 00:00: MOUTH Levoxyl) 00 DAILY 125 MCG DUE FOR tablet APPOINTMEN T/BLOODWOR K IN DECEMBER levothyroxi 2022-0 Yes [id number] TAKE 1 UT ne 3-28 TABLET BY Health (Synthroid, 00:00: MOUTH Levoxyl) 00 DAILY 125 MCG DUE FOR tablet APPOINTMEN T/BLOODWOR K IN DECEMBER levothyroxi 2022-0 Yes [id number] TAKE 1 UT ne 3-28 TABLET BY Health (Synthroid, 00:00: MOUTH Levoxyl) 00 DAILY 125 MCG DUE FOR tablet APPOINTMEN T/BLOODWOR K IN DECEMBER levothyroxi 2022-0 Yes [id number] TAKE 1 UT ne 3-28 TABLET BY Health (Synthroid, 00:00: MOUTH Levoxyl) 00 DAILY 125 MCG DUE FOR tablet APPOINTMEN T/BLOODWOR K IN DECEMBER lisinopril 2023-0 Yes [id number] TAKE 1 UT 20 MG 2-03 TABLET BY Health tablet 00:00: MOUTH 00 EVERY DAY DIRECTED lisinopril 2023-0 Yes [id number] TAKE 1 UT 20 MG 2-03 TABLET BY Health tablet 00:00: MOUTH 00 EVERY DAY DIRECTED lisinopril 2023-0 Yes [id number] TAKE 1 UT 20 MG 2-03 TABLET BY Health tablet 00:00: MOUTH 00 EVERY DAY DIRECTED lisinopril 2023-0 2023- No [id number] TAKE 1 U T 20 MG 2-03 06-12 TABLET BY Health tablet 00:00: 00:00 MOUTH 00 :00 EVERY DAY DIRECTED lisinopril 2023-0 2023- No [id number] TAKE 1 U T 20 MG 2-03 06-12 TABLET BY Health tablet 00:00: 00:00 MOUTH 00 :00 EVERY DAY DIRECTED lisinopril 2023-0 2023- No [id number] TAKE 1 U T 20 MG 2-03 06-12 TABLET BY Health tablet 00:00: 00:00 MOUTH 00 :00 EVERY DAY DIRECTED lisinopril 2023-0 Yes 1{tbl} QD Take 1 UT 40 MG 1-31 tablet by Health tablet 00:00: mouth 1 00 (one) time each day. lisinopril 2023-0 Yes 1{tbl} QD Take 1 UT 40 MG 1-31 tablet by Health tablet 00:00: mouth 1 00 (one) time each day. lisinopril 2023-0 Yes 1{tbl} QD Take 1 UT 40 MG 1-31 tablet by Health tablet 00:00: mouth 1 00 (one) time each day. lisinopril 2023-0 Yes 1{tbl} QD Take 1 UT 40 MG 1-31 tablet by Health tablet 00:00: mouth 1 00 (one) time each day. lisinopril 2023-0 Yes 1{tbl} QD Take 1 UT 40 MG 1-31 tablet by Health tablet 00:00: mouth 1 00 (one) time each day. lisinopril 2023-0 Yes 1{tbl} QD Take 1 UT 40 MG 1-31 tablet by Health tablet 00:00: mouth 1 00 (one) time each day. potassium 2023-0 Yes 10meq QD [...] time 45 each day. amLODIPine 2021-09 Yes [id number] TAKE 1 UT (Norvasc) 5 2-21 TABLET BY Hea lth MG tablet 00:00: MOUTH 00 EVERY DAY amLODIPine 2021-09 Yes [id number] TAKE 1 UT (Norvasc) 5 2-21 TABLET BY Hea lth MG tablet 00:00: MOUTH 00 EVERY DAY amLODIPine 2021-09 Yes [id number] TAKE 1 UT (Norvasc) 5 2-21 TABLET BY [facility]a lth MG tablet 00:00: MOUTH 00 EVERY DAY amLODIPine 2021-09 Yes [id number] TAKE 1 UT (Norvasc) 5 2-21 TABLET BY Hea lth MG tablet 00:00: MOUTH 00 EVERY DAY amLODIPine 2021-09 Yes [id number] TAKE 1 UT (Norvasc) 5 2-21 TABLET BY [facility] MG tablet 00:00: MOUTH 00 EVERY DAY amLODIPine 2021-09 Yes [id number] TAKE 1 UT (Norvasc) 5 2-21 TABLET BY [facility] MG tablet 00:00: MOUTH 00 EVERY DAY amLODIPine 2021-09 Yes [id number] TAKE 1 UT (Norvasc) 5 2-21 TABLET BY [facility] MG tablet 00:00: MOUTH 00 EVERY DAY amLODIPine 2021-09 Yes [id number] TAKE 1 UT (Norvasc) 5 2-21 TABLET BY [facility]a lth MG tablet 00:00: MOUTH 00 EVERY DAY amLODIPine 2021-09 Yes [id number] TAKE 1 UT (Norvasc) 5 2-21 TABLET BY [facility]a lth MG tablet 00:00: MOUTH 00 EVERY DAY amLODIPine 2021-09 Yes [id number] TAKE 1 UT (Norvasc) 5 2-21 TABLET BY Hea lth MG tablet 00:00: MOUTH 00 EVERY DAY metFORMIN 2021-09 Yes [id number] TAKE 1 U T (Glucophage 1-28 TABLET BY [facility] ) 500 MG 00:00: MOUTH tablet 00 EVERY DAY metFORMIN 2021-09- No [id number] TAKE 1 UT (Glucophage -10-30 TABLET BY [facility] ) 500 MG 00:00: 05:59 MOUTH tablet 00 :00 EVERY DAY metFORMIN 2021-09- No [id number] TAKE 1 UT (Glucophage 09-30 TABLET BY [facility] ) 500 MG 00:00: 05:59 MOUTH tablet 00 :00 EVERY DAY metFORMIN 2021-09- No [id number] TAKE 1 UT (Glucophage 09-30 TABLET BY [facility] ) 500 MG 00:00: 05:59 MOUTH tablet 00 :00 EVERY DAY metFORMIN 2021-09- No [id number] TAKE 1 UT (Glucophage 09-30 TABLET BY [...] MG tablet 00:00: 00 simvastatin 2021-09 Yes [id number] TAKE 1 UT (Zocor) 40 0-26 TABLET BY Heal th MG tablet 00:00: MOUTH 00 EVERY DAY. PATIENT NEEDS BLOODWORK IN DECEMBER simvastatin 2021-09 Yes [id number] TAKE 1 UT (Zocor) 40 0-26 TABLET BY Heal th MG tablet 00:00: MOUTH 00 EVERY DAY. PATIENT NEEDS BLOODWORK IN DECEMBER simvastatin 2021-09 Yes [id number] TAKE 1 UT (Zocor) 40 0-26 TABLET BY Heal th MG tablet 00:00: MOUTH 00 EVERY DAY. PATIENT NEEDS BLOODWORK IN DECEMBER simvastatin 2021-09 Yes [id number] TAKE 1 UT (Zocor) 40 0-26 TABLET BY Heal th MG tablet 00:00: MOUTH 00 EVERY DAY. PATIENT NEEDS BLOODWORK IN DECEMBER simvastatin 2021-09 Yes [id number] TAKE 1 UT (Zocor) 40 0-26 TABLET BY Heal th MG tablet 00:00: MOUTH 00 EVERY DAY. PATIENT NEEDS BLOODWORK IN DECEMBER simvastatin 2021-09 Yes [id number] TAKE 1 UT (Zocor) 40 0-26 TABLET BY Heal th MG tablet 00:00: MOUTH 00 EVERY DAY. PATIENT NEEDS BLOODWORK IN DECEMBER simvastatin 2021-09 Yes [id number] TAKE 1 UT (Zocor) 40 0-26 TABLET BY Heal th MG tablet 00:00: MOUTH 00 EVERY DAY. PATIENT NEEDS BLOODWORK IN DECEMBER simvastatin 2021-09 Yes [id number] TAKE 1 UT (Zocor) 40 0-26 TABLET BY Heal th MG tablet 00:00: MOUTH 00 EVERY DAY. PATIENT NEEDS BLOODWORK IN DECEMBER simvastatin 2021-09 Yes [id number] TAKE 1 UT (Zocor) 40 0-26 TABLET BY [facility]al th MG tablet 00:00: MOUTH 00 EVERY DAY. PATIENT NEEDS BLOODWORK IN DECEMBER sildenafil 2021-09 Yes [id number] TAKE 1 UT (Viagra) 0-06 TABLET 1 Health 100 MG 00:00: HOUR PRIOR tablet 00 TO ACTIVITY NEEDED Strength: 100 mg sildenafil 2021-09 Yes [id number] TAKE 1 UT (Viagra) 0-06 TABLET 1 Health 100 MG 00:00: HOUR PRIOR tablet 00 TO ACTIVITY NEEDED Strength: 100 mg sildenafil 2021-09 Yes [id number] TAKE 1 UT (Viagra) 0-06 TABLET 1 Health 100 MG 00:00: HOUR PRIOR tablet 00 TO ACTIVITY NEEDED Strength: 100 mg sildenafil 2021-09 Yes [id number] TAKE 1 UT (Viagra) 0-06 TABLET 1 Health 100 MG 00:00: HOUR PRIOR tablet 00 TO ACTIVITY NEEDED Strength: 100 mg sildenafil 2021-09 Yes [id number] TAKE 1 UT (Viagra) 0-06 TABLET 1 Health 100 MG 00:00: HOUR PRIOR tablet 00 TO ACTIVITY NEEDED Strength: 100 mg sildenafil 2021-09 Yes [id number] TAKE 1 UT (Viagra) 0-06 TABLET 1 Health 100 MG 00:00: HOUR PRIOR tablet 00 TO ACTIVITY NEEDED Strength: 100 mg sildenafil 2021-09 Yes [id number] TAKE 1 UT (Viagra) 0-06 TABLET 1 Health 100 MG 00:00: HOUR PRIOR tablet 00 TO ACTIVITY NEEDED Strength: 100 mg sildenafil 2021-09 Yes [id number] TAKE 1 UT (Viagra) 0-06 TABLET 1 Health 100 MG 00:00: HOUR PRIOR tablet 00 TO ACTIVITY NEEDED Strength: 100 mg sildenafil 2021-09 Yes [id number] TAKE 1 UT (Viagra) 0-06 TABLET 1 Health 100 MG 00:00: HOUR PRIOR tablet 00 TO ACTIVITY NEEDED Strength: 100 mg sildenafil 2021-09 Yes [id number] TAKE 1 UT (Viagra) 0-06 TABLET 1 Health 100 MG 00:00: HOUR PRIOR tablet 00 TO ACTIVITY NEEDED Strength: 100 mg sildenafil 2021-09 Yes [id number] TAKE 1 UT (Viagra) 0-06 TABLET 1 Health 100 MG 00:00: HOUR PRIOR tablet 00 TO ACTIVITY NEEDED Strength: 100 mg sildenafil 2021-09 Yes [id number] TAKE 1 UT (Viagra) 0-06 TABLET 1 Health 100 MG 00:00: HOUR PRIOR tablet 00 TO ACTIVITY NEEDED Strength: 100 mg sildenafil 2021-09 Yes [id number] TAKE 1 UT (Viagra) 0-06 TABLET 1 Health 100 MG 00:00: HOUR PRIOR tablet 00 TO ACTIVITY NEEDED Strength: 100 mg sildenafil 2021-09 Yes [id number] TAKE 1 UT (Viagra) 0-06 TABLET 1 Health 100 MG 00:00: HOUR PRIOR tablet 00 TO ACTIVITY NEEDED Strength: 100 mg sildenafil 2021-09 Yes [id number] TAKE 1 UT (Viagra) 0-06 TABLET 1 Health 100 MG 00:00: HOUR PRIOR tablet 00 TO ACTIVITY NEEDED Strength: 100 mg levothyroxi Yes [id number] TAKE 1 UT ne 9-19 TABLET BY Health (Synthroid, 00:00: MOUTH Levoxyl) 00 DAILY 125 MCG DUE FOR tablet APPOINTMEN T/BLOODWOR K IN DECEMBER levothyroxi Yes [id number] TAKE 1 UT ne 9-19 TABLET BY Health (Synthroid, 00:00: MOUTH Levoxyl) 00 DAILY 125 MCG DUE FOR tablet APPOINTMEN T/BLOODWOR K IN DECEMBER levothyroxi Yes [id number] TAKE 1 UT ne 9-19 TABLET BY Health (Synthroid, 00:00: MOUTH Levoxyl) 00 DAILY 125 MCG DUE FOR tablet APPOINTMEN T/BLOODWOR K IN DECEMBER levothyroxi Yes [id number] TAKE 1 UT ne 9-19 TABLET BY Health (Synthroid, 00:00: MOUTH Levoxyl) 00 DAILY 125 MCG DUE FOR tablet APPOINTMEN T/BLOODWOR K IN DECEMBER levothyroxi Yes [id number] TAKE 1 UT ne 9-19 TABLET BY Health (Synthroid, 00:00: MOUTH Levoxyl) 00 DAILY 125 MCG DUE FOR tablet APPOINTMEN T/BLOODWOR K IN DECEMBER levothyroxi Yes [id number] TAKE 1 UT ne 9-19 TABLET BY Health (Synthroid, 00:00: MOUTH Levoxyl) 00 DAILY 125 MCG DUE FOR tablet APPOINTMEN T/BLOODWOR K IN DECEMBER levothyroxi Yes [id number] TAKE 1 UT ne 9-19 TABLET BY Health (Synthroid, 00:00: MOUTH Levoxyl) 00 DAILY 125 MCG DUE FOR tablet APPOINTMEN T/BLOODWOR K IN DECEMBER levothyroxi Yes [id number] TAKE 1 UT ne 9-19 TABLET BY Health (Synthroid, 00:00: MOUTH Levoxyl) 00 DAILY 125 MCG DUE FOR tablet APPOINTMEN T/BLOODWOR K IN DECEMBER levothyroxi Yes [id number] TAKE 1 UT ne 9-19 TABLET BY Health (Synthroid, 00:00: MOUTH Levoxyl) 00 DAILY 125 MCG DUE FOR tablet APPOINTMEN T/BLOODWOR K IN DECEMBER lisinopril 2-0 Yes [id number] TAKE 1 UT 20 MG 7-31 TABLET BY Health tablet 00:00: MOUTH 00 EVERY DAY DIRECTED lisinopril 2022-0 Yes [id number] TAKE 1 UT 20 MG 7-31 TABLET BY Health tablet 00:00: MOUTH 00 EVERY DAY DIRECTED lisinopril 2022-0 Yes [id number] TAKE 1 UT 20 MG 7-31 TABLET BY Health tablet 00:00: MOUTH 00 EVERY DAY DIRECTED lisinopril 2022-0 Yes [id number] TAKE 1 UT 20 MG 7-31 TABLET BY Health tablet 00:00: MOUTH 00 EVERY DAY DIRECTED lisinopril 2022-0 Yes [id number] TAKE 1 UT 20 MG 7-31 TABLET BY Health tablet 00:00: MOUTH 00 EVERY DAY DIRECTED lisinopril 2022-0 Yes [id number] TAKE 1 UT 20 MG 7-31 TABLET BY Health tablet 00:00: MOUTH 00 EVERY DAY DIRECTED lisinopril 2022-0 Yes [id number] TAKE 1 UT 20 MG 7-31 TABLET BY Health tablet 00:00: MOUTH 00 EVERY DAY DIRECTED lisinopril 2022-0 Yes [id number] TAKE 1 UT 20 MG 7-31 TABLET BY Health tablet 00:00: MOUTH 00 EVERY DAY DIRECTED lisinopril 2022-0 Yes [id number] TAKE 1 UT 20 MG 7-31 TABLET [...] (one) time 02 each day. levothyroxi Yes [id number] TAKE 1 UT ne 3-20 TABLET BY [facility] (Synthroid, 00:00: MOUTH Levoxyl) 00 DAILY 125 MCG DUE FOR tablet APPOINTMEN T/BLOODWOR K IN DECEMBER levothyroxi Yes [id number] TAKE 1 UT ne 3-20 TABLET BY [facility] (Synthroid, 00:00: MOUTH Levoxyl) 00 DAILY 125 MCG DUE FOR tablet APPOINTMEN T/BLOODWOR K IN DECEMBER metFORMIN Yes [id number] TAKE 1 U T (Glucophage 3-20 TABLET BY [facility] ) 500 MG 00:00: MOUTH tablet 00 EVERY DAY metFORMIN Yes [id number] TAKE 1 U T (Glucophage 3-20 TABLET BY [facility] ) 500 MG 00:00: MOUTH tablet 00 EVERY DAY metFORMIN Yes [id number] TAKE 1 U T (Glucophage 3-20 TABLET BY [facility] ) 500 MG 00:00: MOUTH tablet 00 EVERY DAY metFORMIN Yes [id number] TAKE 1 U T (Glucophage 3-20 TABLET BY [facility] ) 500 MG 00:00: MOUTH tablet 00 EVERY DAY metFORMIN Yes [id number] TAKE 1 U T (Glucophage 3-20 TABLET BY [facility] ) 500 MG 00:00: MOUTH tablet 00 EVERY DAY metFORMIN 2021- No [id number] TAKE 1 UT (Glucophage 3-20 06-19 TABLET BY He alth ) 500 MG 00:00: 04:59 MOUTH tablet 00 :00 EVERY DAY metFORMIN 2021- No [id number] TAKE 1 UT (Glucophage 3-20 06-19 TABLET BY He alth ) 500 MG 00:00: 04:59 MOUTH tablet 00 :00 EVERY DAY simvastatin Yes [id number] TAKE 1 UT (Zocor) 40 2-25 TABLET BY Heal th MG tablet 00:00: MOUTH 00 EVERY DAY. PATIENT NEEDS BLOODWORK IN DECEMBER simvastatin Yes [id number] TAKE 1 UT (Zocor) 40 2-25 TABLET BY Heal th MG tablet 00:00: MOUTH 00 EVERY DAY. PATIENT NEEDS BLOODWORK IN DECEMBER lisinopril Yes [id number] TAKE 1 UT 20 MG 2-03 TABLET BY Health tablet 00:00: MOUTH 00 EVERY DAY DIRECTED lisinopril Yes [id number] TAKE 1 UT 20 MG 2-03 TABLET BY Health tablet 00:00: MOUTH 00 EVERY DAY DIRECTED sildenafil 2020-09 Yes [id number] TAKE 1 UT (Viagra) 2-21 TABLET 1 Health 100 MG 00:00: HOUR PRIOR tablet 00 TO ACTIVITY NEEDED sildenafil 2020-09 Yes [id number] TAKE 1 UT (Viagra) 2-21 TABLET 1 [...] (two) l times a day with meals. lisinopriL 2020-09 Yes 20mg QD Take 20 [...] 15 mg 18:25: Hospita tablet 02 l lisinopriL 2020-09 Yes 20mg QD Take 20 [...] (two) l times a day with meals. sildenafiL 2020-09 Yes 100mg Q24H Take 100 [...] Take 1 UT Sulfate 0-29 tablet by [facility] 00:00: mouth (Slow Iron) 00 [...] Take 100 UT sodium 0-29 mg by [facility] (Colace) 00:00: mouth 100 MG 00 every [...] Take 1 UT Sulfate 0-29 tablet by [facility] 00:00: mouth (Slow Iron) 00 every 160 (50 Fe) other day. MG tablet controlled- release Ferrous 2018-09 Yes 1{tbl} QD Take 1 UT Sulfate 0-29 tablet by [facility] 00:00: mouth 1 (Slow Iron) 00 (one) time 160 (50 Fe) each day. MG tablet controlled- release Ferrous 2018-09 Yes 1{tbl} QD Take 1 UT Sulfate 0-29 tablet by [facility] 00:00: mouth 1 (Slow Iron) 00 (one) time 160 (50 Fe) each day. MG tablet controlled- release Ferrous 2018-09 Yes 1{tbl} QD Take 1 UT Sulfate 0-29 tablet by [facility] 00:00: mouth 1 (Slow Iron) 00 (one) time 160 (50 Fe) each day. MG tablet controlled- release Ferrous 2018-09 Yes 1{tbl} QD Take 1 UT Sulfate 0-29 tablet by [facility] D[facility] 00:00: mouth 1 (Slow Iron) 00 (one) time 160 (50 Fe) each day. MG tablet controlled- release Ferrous 2018-09 Yes 1{tbl} QD Take 1 UT Sulfate 0-29 tablet by [facility] 00:00: mouth 1 (Slow Iron) [...] tablet controlled- release Ferrous 2018-09 Yes 1{tbl} Q2D Take 1 UT Sulfate 0-29 tablet by Health Dried ER 00:00: mouth (Slow Iron) 00 every 160 (50 Fe) other day. MG tablet controlled- release Ferrous 2018-09 Yes 1{tbl} Q2D Take 1 UT Sulfate 0-29 tablet by Health Dried ER 00:00: mouth (Slow Iron) 00 every 160 (50 Fe) other day. MG tablet controlled- release Ferrous 2018-09 Yes 1{tbl} Q2D Take 1 UT Sulfate 0-29 tablet by Health Dried ER 00:00: mouth (Slow Iron) 00 every 160 (50 Fe) other day. MG tablet controlled- release docusate 2018-09- No 100mg Q2D Take 100 UT sodium 0-29 01-18 mg by [facility] (Colace) 00:00: 00:00 mouth 100 MG 00 :00 every capsule other day. docusate 2018-09- No 100mg Q2D Take 100 UT sodium 0-29 01-18 mg by [facility] ([facility]) 00:00: 00:00 mouth 100 MG 00 :00 every capsule other day. docusate 2018-09- No 100mg Q2D Take 100 UT sodium 0-29 01-18 mg by [facility] ([facility]) 00:00: 00:00 mouth 100 MG 00 :00 every capsule other day. docusate 2018-09- No 100mg Q2D Take 100 UT sodium 0-29 01-18 mg by [facility] ([facility]) 00:00: 00:00 mouth 100 MG 00 :00 every capsule other day. rivaroxaban 2016-09 Yes TAKE 1 UT (Xarelto) [...] Date Status Commen ts Source Name Name Hib (PRP-T) 2023-01-23 [facility] 00:[facility]:00 M[facility]CV4[facility] M[facility], Omv [facility] Pneumococcal Conjugate 2023-01-23 [facility] PCV 20 00:00:00 Hib (PRP-T) 2023-01-23 [facility] 00[facility]00:00 Meningococcal MCV4TT 2023[facility]23 [facility] Meningococcal B, Omv 2023[facility]23 [facility] Pneumococcal Conjugate 2023-01-23 [facility] PCV 20 00:00:00 Influenza, High Dose 2022-06-07 Completed [facility] [...] H ealth Seasonal (fluzone) 00:00:00 COVID-19 Moderna 18 & 2020-10-08 [facility] Vaccination 00:00:00 COVID-19 Moderna 18 & 2020-10-08 [facility] 00:[facility]:00 COVID-19 Moderna 12 & 2020-10-08 Completed [facility] [...] Over Vaccination (RED 00:00:00 CAP) COVID-19 Moderna 2020[facility]10-[facility] 00:00:00 COVID-19 Moderna 2020-10-08 [facility] 00:00:00 COVID-19 Moderna 2020-10-08 [facility]red) 00:00:00 COVID-19 Moderna 2020-10-08 Completed [facility] (red) 00:00:00 COVID-19 Moderna 2020-10-08 Completed [facility] (red) 00:00:00 COVID-19 Moderna 2020-10-08 Completed [facility] (red) 00:00:00 COVID-19 Moderna 18 & 2020-09-10 Completed [facility] 00:00:00 COVID-19 Moderna 18 & 2020-09-10 Completed [facility] 00:00:00 COVID-19 Moderna & 2020-09-10 Completed [facility] (RED 00:00:00 CAP) COVID-19 Moderna & 2020-09-10 Completed [facility] (RED 00:00:00 CAP) COVID-19 Moderna & 2020-09-10 Completed [facility] Vaccination (RED 00:00:00 CAP) COVID-19 Moderna & 2020-09-10 Completed [facility] Vaccination (RED 00:00:00 CAP) COVID-19 Moderna & 2020-09-10 Completed [facility] Vaccination (RED 00:00:00 CAP) COVID-19 Moderna & 2020-09-10 Completed [facility] Vaccination (RED 00:00:00 CAP) COVID-19 Moderna 12 & 2020-09-10 Completed [facility] Vaccination (RED 00:00:00 CAP) COVID-19 Moderna 12 & 2020-09-10 Completed [facility] Vaccination (RED 00:00:00 CAP) COVID-19 Moderna 12 & 2020-09-10 Completed [facility] Vacc[facility] (RED 00:00:00 CAP) COVID-19 Moderna 2020-09-10 [facility] 00:00:00 COVID-19 Moderna 2020-09-10 [facility]red) 00:00:00 COVID-19 Moderna 2020-09-10 [facility] (red) 00:00:00 COVID-19 Moderna 2020-09-10 [facility] (red) 00:00:00 COVID-19 Moderna 2020-09-10 [facility]red) 00:00:00 COVID-19 Moderna 2020-09-10 [facility]red) 00:00:00 Zoster, Recombinant 2020-07-05 [facility]pleted [facility] [...] Observation Value Comments Source Systolic blood pressure 2023-02-12 15:04:00 122 mm[Hg] [facility] Diastolic blood pressure 2023-02-12 15:04:00 74 mm[Hg] [facility] Body temperature 2023-02-12 15:04:00 36.06 Germaina [facility] weight 2023-02-12 15:04:00 74.39 kg [facility] BMI 2023-02-12 15:04:00 24.94 kg[facility]m2 [facility] Systolic blood pressure 2023-02-02 15:41:00 124 mm[Hg] [facility] Diastolic blood pressure 2023-02-02 15:41:00 75 mm[Hg] [facility] Heart rate 2023-02-02 15:41:00 81 /min [facility] 2023-02-02 15:41:00 36.06 Germania [facility] height 2023-02-02 15:41:00 172.7 cm [facility] weight 2023-02-02 15:41:00 72.576 [facility] BMI 2023-02-02 15:41:00 24.33 kg[facility]m2 [facility] Systolic blood pressure 2022-09-20 16:52:00 128 mm[Hg] [...] Procedure Date / Time Performed Performing Clinician Sy washburn [id number] 2023-02-20 00:00:00 JENNY SUMNER [facility] BASIC METABOLIC PANEL 2022-07-03 19:45:00 [facility] Plan of Care Planned Activity Planned Date Details Comments Source Future Scheduled 2023-02-15 MENINGOCOCCAL B SERIES M [facility] Test 13:24:55 VACCINE (1 of 4 - Increased Risk) [code = MENINGOCOCCAL B SERIES VACCINE (1 of 4 - Increased Risk)] Future Scheduled 2023-02-15 SHINGLES VACCINES (2 Met [facility] Test 13:24:55 of 3) [code = SHINGLES VACCINES (2 of 3)] Future Scheduled 2023-02-15 COVID-19 VACCINE (5 - Me [facility] Test 13:24:55 Moderna series) [code = COVID-19 VACCINE (5 - Moderna series)] Future Scheduled 2023-02-15 INFLUENZA VACCINE Method [facility] Hospital Test 13:24:55 [code = INFLUENZA VACCINE] Future Scheduled 2023-02-15 MENINGOCOCCAL B SERIES M [facility] Test 13:24:55 VACCINE (1 of 4 - Increased Risk) [code = MENINGOCOCCAL B SERIES VACCINE (1 of 4 - Increased Risk)] Future Scheduled 2023-02-15 SHINGLES VACCINES (2 Met [facility] Test 13:24:55 of 3) [code = SHINGLES VACCINES (2 of 3)] Future Scheduled 2023-02-15 COVID-19 VACCINE (5 - Me [facility] Test 13:24:55 Moderna series) [code = COVID-19 VACCINE (5 - Moderna series)] Future Scheduled 2023-02-15 INFLUENZA VACCINE Method [facility] Test 13:24:55 [code = INFLUENZA VACCINE] Future Scheduled 2022-12-07 SHINGLES VACCINES (2 Met [facility] Test 23:48:13 of 3) [code = SHINGLES VACCINES (2 of 3)] Future Scheduled 2022-12-07 COVID-19 VACCINE (5 - Me [facility] Test 23:48:13 Booster for Moderna series) [code = COVID-19 VACCINE (5 - Booster for Moderna series)] Future Scheduled 2022-12-07 INFLUENZA VACCINE Method [facility] Test 23:48:13 [code = INFLUENZA VACCINE] Encounters Start End Encounter Admission Attending Care Care Encounter Source Date/Time Date/Time Type Type Clinicians Facility Department ID 2023-03-21 Outpatient [facility] [id number] [place] 10:08:19 [id number] [facility] 2023-03-09 Outpatient [facility] [id number] [place] 08:37:44 [id number] [facility] 2023-03-08 Outpatient [facility] [id number] [place] 16:42:19 [id number] [facility] 2023-02-13 Outpatient [facility] [id number] [place] 09:13:38 [id number] [facility] 2023-02-01 Outpatient [facility] [id number] [place] 11:17:00 [id number] [facility] 2023-01-17 Outpatient [facility] [id number] [place] 14:36:03 [id number] [facility] 2023-01-12 Outpatient [facility] [id number] [place] 11:41:29 [id number] [facility] 2022-12-22 Outpatient [facility] [id number] [place] 13:36:12 [id number] [facility] 2022-09-20 Outpatient [facility] [id number] [place] 17:22:59 [id number] [facility] 2022-09-10 Outpatient [facility] [id number] [place] 10:54:26 [id number] [facility] 2022-08-31 Outpatient [facility] [id number] [place] 10:15:46 [id number] [facility] 2022-07-03 Outpatient [facility] [id number] [place] 14:00:52 [id number] [facility] 2022-06-29 Outpatient [facility] [id number] [place] 19:18:02 [id number] [facility] 2023-09-20 2023-09-20 Outpatient KE, [facility] [id number] [place] 10:30:00 10:30:00 [facility] 2023-02-20 2023-02-20 Inpatient DANIELLE Enamorado, HCACL CARD [id number] [facility] 05:34:00 14:53:00 Stoney 85 [facility] 2023-02-16 2023-02-16 Outpatient DANIELLE Enamorado [facility] 3DAY [id number] [facility] 00:00:00 23:00:00 Stoney 44 [facility] 2023-02-12 2023-02-12 Office JONNY DEMPSEY [id number] [place] 09:45:00 09:45:00 Visit CLAUDE MILLAN 350.1.13.58 [facility] 9.2.7.2.686 [id number] 1 2023-02-02 2023-02-02 Office JONNY Cobb [id number] [place] 10:10:00 11:06:21 Visit Lucille MONTESGuevara BARRON 350.1.13.58 Health 9.2.7.2.686 [id number] 4 2023-01-30 2023-01-30 Outpatient JOSE GARCIA [id number] [facility] 15:30:00 15:30:00 00 davide Madsen 2023-01-17 2023-01-24 In[facility] [id number] [facility] 20:01:00 16:00:00 2022-09-20 2022-09-20 Office JONNY Dempsey [id number] [place] 10:30:00 11:01:21 Visit Claude MILLAN 350.1.13.58 He alth 9.2.7.2.686 [id number] 1 2022-07-03 2022-07-03 Office JONNY Dempsey [id number] [place] 14:30:00 16:04:48 Visit Claude MILLAN 350.1.13.58 He alth 9.2.7.2.686 [id number] 1 2021-12-26 2021-12-26 Telephone Osiris Buchanan JONNY TURNER [id number] [place] 00:00:00 00:00:00 Osiris Buchanan 350.1.13.58 Health 9.2.7.2.686 [id number] 1 2021-12-08 2021-12-08 Office JONNY Dempsey [id number] [place] 11:00:00 11:15:00 Visit Claude MILLAN 350.1.13.58 He alth 9.2.7.2.686 [id number] 1 2021-10-17 2021-10-17 Outpatient Pedrito, HCACL LABO [id number] [facility] 15:20:00 15:20:00 Carloz 73 [facility] 2021-10-17 2021-10-17 Outpatient EL Pedrito, HCATO BURAKTO [id number] [facility] 10:16:00 10:16:00 Carloz [facility] 2021-10-17 2021-10-17 Outpatient EL Pedrito, HCATO RADI [id number] [facility] 09:53:00 09:53:00 Carloz 22 [facility] 2021-08-23 2021-08-23 Refill JONNY Dempsey [id number] [place] 00:00:00 00:00:00 Claude MILLAN 350.1.13.58 He alth 9.2.7.2.686 [id number] 1 2021-07-26 2021-07-26 Emergency KELSY RUSS [facility] [id number] [place] 00:00:00 00:00:[address] 2021-07-25 2021-07-25 Refill Ke JONNY TURNER [id number] [id number] [place] 00:00:00 00:00:00 Claude MILLAN 350.1.13.58 He alth 9.2.7.2.686 [id number] 1 2021-06-23 2021-06-23 Office Ke JONNY TURNER 1.2.810.440 [id number] [place] 10:01:59 14:15:39 Visit Claude MILLAN 350.1.13.58 He alth 9.2.7.2.686 [id number] 1 Results Test Description Test Time Test Comments Results Result Comments Source GLUCOSE BEDSIDE 2023-02-20 10:43:00 Test Item Value Reference Range Interpretation Comme nts GLUCOSE BEDSIDE (test code = 90 MG/DL 70-110 N Performed by certified refinery operator helper crude unit at [facility]) [facility] [id number] 09:39:00 Test Item Value Reference Range Interpretation Comments ACT-ISTAT (test code 299 SEC 74-137 H Perform ed by certified = ACTI) refinery operator helper crude unit at [facility] GLUCOSE [id number] 07:40:00 Test Item Value Reference Range Interpretation Comments GLUCOSE BEDSIDE (test 103 MG/DL 70-110 N Perfor med by certified code = GLUBED) refinery operator helper crude unit at [facility] - XR CHEST 1 [id number] 00:00:00 [facility] : 1935 Sex: M FAX: Carloz Rae MD [phone] [place]: St: [facility] FAX: Stoney Sosa MD [phone] FAX: Felix Quintanilla [phone] Name: MARK ANTHONY LAMBERT [facility] : 1935 Age/S: 87/M [address] [place] [address] Unit #: [id number] Loc: [place] [address] Phys: Felix Quintanilla [facility] Acct: [id number] Dis Date: Status: ADM IN PHONE #: [phone] Exam Date: 02/20/2023 1350 FAX #: [phone] Reason: WATCHMAN EXAMS: CPT CODE: [id number] XR CHEST 1 V 05733 PROCEDURE INFORMATION: Exam: XR Chest Exam date and time: 02/20/2023 1:04 PM Age: 87 years old Clinical indication: Other: Watchman TECHNIQUE: Imaging protocol: Radiologic exam of the chest. Views: 1 view. Other technique: AP portable chest obtained, positioning not indicated as semi upright or otherwise. COMPARISON: DX XR CHEST 2 V 3 11:36 AM FINDINGS: Lungs: Lung volumes are diminished. Mild interstitial opacities accentuated by low lung volumes. There is no consolidation. Pleural spaces: There is no pneumothorax or pleural effusion. Heart/Mediastinum: Mild prominence of the cardiomediastinal silhouette magnified by projection and low lung volumes without definite interval change. Calcified plaque thoracic aorta. No gross pulmonary vascular congestion. Left atrial appendage device faintly visible by this technique. Bones/joints: There is no acute skeletal abnormality. IMPRESSION: Diminished lung volumes likely accentuatinginterstitial opacities with edema in the differential. at 1448 Reported and signed by: Danny Terry M.D. CC: Carloz Major MD; Stoney Enamorado MD; Felix Quintanilla Technologist: Rachel Turner RT(R) Trnscrd Date/Time/By: 02/20/2023 (0449) : By: [email or web address] Orig Print D/T: S: 02/20/2023 (3770) PAGE 1 Signed [id number] 12:06:00 Test Item Value Reference Range Interpretation Comments PREALBUMIN (test code = PREALB) 19.7 mg/dL 16.0-40.0 N BASIC METABOLIC [id number] 12:06:00 Test Item Value Reference Range Interpretation Comments SODIUM (test code = 137 mEq/L 134-147 N NA) POTASSIUM (test code 4.4 mEq/L 3.4-5.0 N = K) CHLORIDE (test code 103 mEq/L 100-108 N = CL) CARBON DIOXIDE (test 26 mEq/l 21-33 N code = CO2) ANION GAP (test code 13 0-20 N = GAP) GLUCOSE (test code = 96 mg/dL 70-110 N GLU) BLOOD UREA NITROGEN 10 mg/dL 7-18 N (test code = BUN) GLOMERULAR 72.4 70-80 N The Glomerular FILTRATION RATE Filtration R ate is a (test code = GFR) calculated parameterbased on serum Creatinine, pat ient age and sex. GFR va luesless than 60 mL/min/ 1.73 square meters a re indicative ofCh ronic Kidney Disease. Values less than 15 mL/min/1.73squa re meters indicate Kidney failure. The calculation forGFR is based on the CKD-EPI (2020) calculat ion. This formulais race indifferent and is the recommended for lio for GFRby the Natio nal Kidney Foundati on for Adults.The GFR will not calculate if th e sex is unknown or if thepatient's ag e is <18 years. CREATININE (test 1.0 mg/dL 0.6-1.3 N code = CREAT) CALCIUM (test code = 9.7 mg/dL 8.0-10.5 N CA) PROTHROMBIN [id number] 11:55:00 Test Item Value Reference Range Interpretation Comments PROTHROMBIN TIME 12.8 SECONDS 9.3-12.9 N PATIENT (test code = PTP) INTERNATIONAL NORMAL 1.1 0.8-1.2 N TARGET INR BY RATIO (test code = INDICATIO N Indication INR) INR1. Prophylax is of venous thrombos is 2.0 - 3.0 (orthoped ic surgery), Proph ylaxis of venous throm bosis (other than hig h-risk surgery), Treat ment of Deep Vein Thrombosis/Pulm onary Embolism, Preve ntion of systemic emb olism - Tissue heart va lves, Acute Myocardia l Infarction (to prevent systemic emboli sm), Valvular heart disease, Atrial Fibrillation, Bileaflet mecha nical valve in aortic position.2. Mec hanical prosthetic valv es (high risk), 2. 5 - 3.5 Presence of Lup us Anticoagulant o r Antiphospholipi d Antibodies, Pre vention of systemic emb olism - Acute Myocardia l Infarction (to prevent recurrent infar ct). CBC W/AUTO [id number] 11:51:00 Test Item Value Reference Range Interpretation Comments WHITE BLOOD CELL (test code = 9.3 x10 3/uL 4.5-11.0 N WBC) RED BLOOD CELL (test code = 3.76 x10 6/uL 4.00-5.60 L RBC) HEMOGLOBIN (test code = HGB) 11.1 g/dL 12.5-16.9 L HEMATOCRIT (test code = HCT) 34.8 % 37.5-50.7 L MEAN CELL VOLUME (test code = 92.6 fL 81.0-99.0 N MCV) MEAN CELL HGB (test code = MCH) 29.5 pg 27.0-33.0 N MEAN CELL HGB CONCETRATION 31.9 g/dL 33.0-37.0 L (test code = MCHC) RED CELL DISTRIBUTION WIDTH CV 14.6 % 11.5-14.5 H (test code = RDW) RED CELL DISTRIBUTION WIDTH SD 49.8 fL 37.0-54.0 N (test code = RDW-SD) PLATELET COUNT (test code = 376 x10 3/uL 150-400 N PLT) MEAN PLATELET VOLUME (test code 9.5 fL 7.0-9.0 H = MPV) NEUTROPHIL % (test code = NT%) 66.8 % 56.0-77.0 N IMMATURE GRANULOCYTE % (test 0.5 % 0.0-2.0 N code = IG%) LYMPHOCYTE % (test code = LY%) 17.6 % 14.0-32.0 N MONOCYTE % (test code = MO%) 11.7 % 4.8-9.0 H EOSINOPHIL % (test code = EO%) 2.6 % 0.3-3.7 N BASOPHIL % (test code = BA%) 0.8 % 0.0-2.0 N NUCLEATED RBC % (test code = 0.0 % 0-0 N NRBC%) NEUTROPHIL # (test code = NT#) 6.20 x10 3/uL 2.0-7.6 N IMMATURE GRANULOCYTE # (test 0.05 x10 3/uL 0.00-0.03 H code = IG#) LYMPHOCYTE # (test code = LY#) 1.63 x10 3/uL 1.0-3.8 N MONOCYTE # (test code = MO#) 1.09 x10 3/uL 0.1-0.8 H EOSINOPHIL # (test code = EO#) 0.24 x10 3/uL 0.0-0.2 H BASOPHIL # (test code = BA#) 0.07 x10 3/uL 0.0-0.2 N NUCLEATED RBC # (test code = 0.00 x10 3/uL 0.0-0.1 N NRBC#) MANUAL DIFF REQUIRED (test code NO = MDIFF) - XR CHEST 2 [id number] 00:00:00 [facility] : 1935 Sex: M FAX: Carloz Rae MD [phone] [place]: St: PRE FAX: Stoney Sosa MD [phone] ---- Name: MARK ANTHONY LAMBERT [facility] : 1935 Age/S: 87/M [address] [place] [address] Unit #: [id number] Loc: [place] [address] Phys: Stoney Enamorado MD Acct: [id number] Dis Date: Status: PRE IN PHONE #: Exam Date: 02/16/2023 1136 FAX #: [phone] Reason: PRE OP EXAMS: CPT CODE: [id number] XR CHEST 2 V 88095 PROCEDURE INFORMATION: Exam: XR Chest Exam date and time: 02/16/2023 11:36 AM Age: 87years old Clinical indication: Pre- operative exam; Respiratory screening exam; Additional info: Pre op TECHNIQUE: Imaging protocol: Radiologic exam of the chest. Views: 2 views. PA and Lateral COMPARISON: No relevant prior studies available. FINDINGS: Lungs: There are normal lung volumes without consolidation or interstitial opacities. Pleural spaces: Unremarkable. No pleural effusion. No pneumothorax. Heart/Mediastinum: The heart size is normal. The pulmonary vasculature is normal. The mediastinal contour is normal. The trachea is midline. Bones/joints: No acute abnormality seen. IMPRESSION: No acute cardiopulmonary findings. at 1156 Reported and signed by: Maynro Yoon M.D. CC: Carloz Major MD; Stoney Enamorado MD Technologist: RT Emmy(Anjelica) Trnscrd Date/Time/By: 02/16/2023 (7537) : By: BennyTDO Orig Print D/T: S: 02/16/2023 (1156) PAGE 1 Signed ReportBasi metabolic panel 2022-07-04 05:00:00 Test Item Value Reference Range Interpretation Comments GLUCOSE (test 88 mg/dL 65-139 ? ? ? Non-fas ting code = 2345-7) reference int erval UREA NITROGEN 14 mg/dL 7-25 (BUN) (test code = 3094-0) CREATININE (test 0.86 mg/dL 0.70-1.22 code = 2160-0) EGFR (test code = See_Comment The eGFR i s based [id number]) on the CKD-EPI 2020 equation. To calculate the n ew eGFR from a previous Creatinine or Cystatin Cresul t, go to https://www.kid ute .org/profession als /kdoqi/gfr%5Fca lcu lator [Automate d message] The system which generated this result transmit ashanti reference range : > OR = 60 mL/min/1.73m2. The reference range was not used to interpret this result as normal/abnormal . BUN/CREATININE NOT APPLICABLE See_Comment [Automated RATIO (test code message] Th e = 3097-3) system which generated this result transmit ashanti reference range : 6 - 22 (calc). Th e reference range was not used to interpret this result as normal/abnormal . SODIUM (test code 135 mmol/L 135-146 = 2951-2) POTASSIUM (test 4.2 mmol/L 3.5-5.3 code = 2823-3) CHLORIDE (test 102 mmol/L 98-110 code = 2075-0) CARBON DIOXIDE 26 mmol/L 20-32 (test code = 8-9) CALCIUM (test 10.1 mg/dL 8.6-10.3 REPORT code = 06934-0) COMMENT:FAST ING:NO RAC (test code = Performing RAC) Organization Information: ? ?Site ID: RGA ? ?Name: [employer] [place] ? ?Address: [address] [place] [phone] ? ?Director: MARK ANTHONY SANCHEZ MD [facility] FLD CELL [id number] 18:56:00 Test Item Value Reference Range Interpretation [...] DR CORREA- XR FLUORO NDL 2021-10-17 16:37:00 [facility] : 1935 Sex: M Patient Name: MARK ANTHONY LAMBERT Unit No: [id number] EXAMS: CPT CODE: [id number] XR FLUORO NDL 72616 FLUOROSCOPICALLY GUIDED ASPIRATION OF THE LEFT KNEE [...] Isiah Correa MD CC: Carloz Major Technologist: RT Jose Antonio.(R) Transcribed D/ (1637) Alec [facility] [place] [facility] NAME: MARK ANTHONY LAMBERT [address] [place] [address] PHYS: Carloz Gallegos MD : 1935 AGE: 86 SEX: M [place], [place] [address] LOC: Y.LAB PHONE #: [phone] EXAM DATE: 10/17/2021 STATUS: REG CLI FAX #: [phone] RAD #: [id number] D/C DT PAGE 1 Signed Report Patient Name: MARK ANTHONY LAMBERT Unit No: [id number] EXAMS: CPT CODE: [id number] XR FLUORO NDL 81749 (Continued) O rig Print D/T: S: 10/17/2021 (1640) [facility] [place] [facility] NAME: MARK ANTHONY LAMBERT [address] [place] [address] PHYS: Carloz Gallegos MD : 1935 AGE: 86 SEX: M [place], [place] [address] LOC: Y.LAB PHONE #: [phone] EXAM DATE: 10/17/2021 STATUS: REG CLI FAX #: [phone] RAD #: [id number] D/C DT PAGE 2 Signed Report- XR FLUORO [id number] 16:37:00 [facility] : 1935 Sex: M Patient Name: MARK ANTHONY LAMBERT Unit No: [id number] EXAMS: CPT CODE: [id number] XR FLUORO NDL [address]158 FLUOROSCOPICALLY GUIDED ASPIRATION OF THE LEFT KNEE [...] by: Isiah Correa MD CC: Carloz HayesiaTechnologist: Tash Zavala RT.(R) Transcribed D/ (1637) tOLIVER.[facility] NAME: MARK ANTHONY LAMBERT [address] [place] [address] PHYS: Carloz Gallegos MD : 1935 AGE: 86 SEX: M [place] [address] LOC: Y.RAD PHONE #: [phone] EXAM DATE: 10/17/2021 STATUS: DEP CLI FAX #: [phone] RAD #: [id number] D/C DT PAGE 1 Signed Report Patient Name: MARK ANTHONY WATSON Unit No: [id number] EXAMS: CPT CODE: [id number] XR FLUORO NDL 18272 (Continued)Orig Print D/T: S: 10/17/2021 (1640) [facility] [place] [facility] NAME: MARK ANTHONY LAMBERT [address] [facility] PHYS: Carloz Gallegos MD : 1935 AGE: 86 SEX: M [place] [address] LOC: Y.RAD PHONE #: [phone] EXAM DATE: 10/17/2021 STATUS: DEP CLI FAX #: [phone] RAD #: [id number] D/C DT PAGE 2 Signed ReportCBC W/AUTO [...] % 0-0 N code = NRBC) SED [id number] 12:26:00 Test Item Value Reference Range Interpretation Comments SED RATE (test code = SEDW) 6 mm/hr 0-15 N C REACTIVE [id number] 11:50:00 Test Item Value Reference Range Interpretation Comments C REACTIVE PROTEIN (test code = < 0.2 mg/dL <0.9 CRP) Notes Date/Time Note Provider Source 2023-02-20 13:01:00-00:00 [id number] [place], [place] [address] PATIENT NAME: MARK ANTHONY LAMBERT ADMIT DATE: 02/20/23 ACCOUNT NO: [id number] [facility] 87 REPORT TYPE: eECHOCARDIOGRAM REPORT SEX: M ADMITTING PHYSICIAN:Stoney Enamorado MD ATTENDING PHYSICIAN:Stoney Enamorado MD *[address] [address] Limited Transthoracic Echocardiogram Patient: Mark Anthony Lambert Study Date: 02/20/2023 BP: Location: [facility] URN: [id number] 5 : 1935 Age: 87 Height: 68 in / 172.7 cm Gender: M Weight: 164 .7 lb / 74.8 kg BMI/BSA: 25.1 kg/m 2 / 1.88 m 2 *Ordering Physician: * Felix Quintanilla *Interpreting Physician: * Ulises Padron MD *Net Development Manager: * Osiris Dinh Indications: Post procedure, r/o pericardial eff usion. Study data: Transthoracic echocardiogram, limite d study. Procedure: Transthoracic echocardiography was performed. Im ages were obtained using a [employer] cardiac ultrasound machine. Image quality w as good. Limited 2D and limited spectral Doppler. Patient status: Observ ation. Patient room number: cv pacu/prep. Study status: Same day. Findings Left ventricle: The cavity size is normal. Systo lic function is normal. The estimated ejection fraction is 60-64%. Right ventricle: The cavity size is normal. Syst olic function is normal. Left atrium: The atrium is dilated. PATIENT NAME: MARK ANTHONY LAMBERT ACCOUNT #: G [id number] Right atrium: The atrium is dilated. Aorta: The aortic root is not dilated. Aortic valve: There is no evidence of stenosis. There is mild regurgitation. Mitral valve: There is no evidence of stenosis. There is mild regurgitation. Tricuspid valve: There is no evidence of stenosi s. There is mild regurgitation. Pericardium: There is no pericardial effusion. Systemic veins: Inferior vena cava: The vessel is normal in size . Measurements Left ventricle Value Ref QUENTIN, LAX 5.6 cm 4.2 - 5.8 ESD, LAX 2.9 cm 2.5 - 4.0 ESD/bsa, LAX 1.5 cm/m 2 1.3 - 2.1 FS, LAX 49 % 25 - 43 ESD/bsa major ax, 3.2 cm/m 2 --------- A4C QUENTIN/bsa minor ax, 3.2 cm/m 2 --------- A4C QUENTIN major ax, A2C 6.5 cm --------- ESD major ax, A2C 4.9 cm --------- QUENTIN/bsa major ax, 3.5 cm/m 2 --------- A2C ESD/bsa major ax, 2.6 cm/m 2 --------- A2C PW, ED 0.6 cm 0.6 - 1.0 IVS/PW, ED 0.88 --------- EF 80 % 52 - 72 LVOT Value Ref Diam, S 1.84 cm --------- Area 2.7 cm 2 --------- Ventricular septum Value Ref IVS, ED 0.5 cm 0.6 - 1.0 Right ventricle Value Ref QUENTIN, LAX 2.6 cm --------- Left atrium Value Ref AP dim, ES 4.74 cm 3.00 - 4.00 Vol/bsa, ES, 1-p A4C 48 ml/m 2 12 - 37 Vol/bsa, ES, A/L 53 ml/m 2 16 - 34 Right atrium Value Ref Area, ES 20 cm 2 10 - 18 SI dim, ES, A4C 6.0 cm 3.4 - 5.3 SI dim/bsa, ES, A4C 3.2 cm/m 2 1.8 - 3.0 PATIENT NAME: MARK ANTHONY LAMBERT ACCOUNT #: G [id number] Vol, ES, A/L 59 ml --------- Vol, ES, 1-p A4C 55 ml --------- Vol/bsa, ES, 1-p A4C 29 ml/m 2 11 - 39 Aortic valve Value Ref Peak v, S 1.1 m/sec --------- Mean v, S 0.76 m/sec --------- VTI, S 28.2 cm --------- Mean grad, S 2.5 mm Hg --------- Peak grad, S 4.8 mm Hg --------- Mitral valve Value Ref MR peak v 3.8 m/sec --------- Tricuspid valve Value Ref TR peak v 2.35 m/sec <=2.8 Peak RV-RA grad, S 22 mm Hg --------- Conclusions Summary: 1. Study data: Transthoracic echocardiogram, fang ited study. 2. Left ventricle: The cavity size is normal. Sy stolic function is normal. The estimated ejection fraction is 60-6 4%. 3. Left atrium: The atrium is dilated. 4. Right atrium: The atrium is dilated. 5. Aortic valve: There is mild regurgitation. 6. Pericardium, extracardiac: There is no perica rdial effusion. Prepared and electronically signed by Ulises Padron MD 02/20/2023 13:01 Electronically Signed by Ulises Padron MD on 0 02/20/23 at 1301 PATIENT NAME: MARK ANTHONY LAMBERT ACCOUNT #: G [id number] 2023-02-20 10:26:00-00:00 [facility] Discharge Summary REPORT#:[id number] REPORT STATUS: Signed DATE:02/20/23 TIME: 1026 PATIENT: MARK ANTHONY LAMBERT UNIT #: [id number] ROOM/BED: [facility] [place] [id number] : [birth year] AGE: 87 SEX: M ATTEND: Hossein Enamorado MD ADM AUTHOR: Felix Quintanilla * ALL edits or amendments must be made on the [employer] Charge/computer document * PCP PCP Discharge to: home General Information Discharge date: 02/20/23 Discharge diagnosis: AFIB Hospital course: Patient with long standing p ersistent atrial fibrillation, CHADSVASC score of 4, and intolerance to long-term anticoagulation due to fall risk. Patient is s/p successful implantation of a 27mm Watchman device in the left atrial appendage. Patient tolerated the procedure without post-op complications. No thrombus was identified in the pre-/intra-op JESSICA. Postoperatively, chest x-ray is negative for any acute process. Post-op echo did not show a pericardial effusion. Patient ambulated without an y difficulty, and heart rate and blood pressure are stable. Right groin suture removed by this EVENT HOST. No infect ion, bleeding, or hematoma. Dermabond applied and intact. Patient was provided with post-Watchman discharg e instructions. Patient is to follow up with PCP and valve mechanic in 1 to 2 we eks post discharge. Patient is to follow up with valve mechanic for th e 45-day JESSICA, and for anticoagulation recommendation. Patient is to continue Xarelto for 6 weeks, then transition to aspirin and Plavix. Duration of aspirin is lifelong. Duration of Plavix is 6 months post 45-day JESSICA. Post-Watchman discharge instructions given to th e patient who verbalized understanding, and patient w as instructed to report any complaints of chest pain , shortness of breath, lightheadedness, or dizzi ness to the valve mechanic. Dispo: It is medically necessary that patients u ndergoing percutaneous left atrial appendage occlusion are admitted as an in patient. This patient had a recovery that was earlier than expected and can be discharged today. Med Rec PCP PCP: PCP: Carloz Major MD Med Rec Discharge meds: Continue taking these medications: [POTASSIUM CHLORIDE] 7.5 MILLILITERS ORAL DAILY. LISINOPRIL (ZESTRIL) 40 MG TAB 40 MILLIGRAM ORAL DAILY. LEVOTHYROXINE (SYNTHROID) 125 MCG TAB 125 MICROGRAM ORAL DAILY. FUROSEMIDE (LASIX) 20 MG TAB 20 MILLIGRAM ORAL DAILY. SIMVASTATIN (SIMVASTATIN) 40 MG TAB 40 MILLIGRAM ORAL DAILY. metFORMIN (GLUCOPHAGE) 500 MG TAB 500 MILLIGRAM ORAL DAILY. [IRON- SLOW RELEASE] 45 MILLIGRAM ORAL amLODIPine (NORVASC) 5 MG TAB 5 MILLIGRAM ORAL DAILY. FINASTERIDE (PROSCAR) 5 MG TAB 5 MILLIGRAM ORAL DAILY. TAMSULOSIN ER (FLOMAX) 0.4 MG CAP.SR.24H 0.4 MILLIGRAM ORAL DAILY. Start taking the following new medications: RIVAROXABAN (XARELTO) 15 MG TAB 15 MILLIGRAM ORAL DAILY. Days = 30 Qty = 30 Refills = 3 Objective VS/I O Last Documented: Result Date Time Pulse Ox 94 02/20 749 B/P 131/75 02/20 749 Temp 36.2 02/20 749 Pulse 61 02/20 07 Resp 16 02/20 749 PATIENT WEIGHT: Weight (lb): 165 Weight (oz): 5.55 Weight (kg): 75.000 General appearance: alert, awake, oriented Cardiovascular: regular rate rhythm Respiratory: clear to auscultation, no distress GI: soft, non-tender Extremities: moves all Neuro/LINE SUPPLY: alert, oriented X 3 Skin: dry Results Findings/Data: Laboratory Tests: 02/20 02/20 0933 0729 Chemistry POC Glucose (70 - 110 MG/DL) 103 Coagulation Activated Coag Time (74 - 137 SEC) 299 H Treatments Procedures Treatments Procedures: Left atrial appendage closure using 27 mm Watchm an FLX closure device. Discharge Instructions PCP PCP: PCP: Carloz Major MD )( Discharge to: Home/Self Care Discharge Instructions Additional Discharge Routines: Attending Follow- Up )( Diet: Cardiac )( Activity: As Tolerated Follow-up Appointments Attending Physician: Attending Physician: Stoney Enamorado MD Attending physician follow up timeframe: In 1- 2 weeks Electronically Signed by Felix Quintanilla o n 02/20/23 at 1419 Electronically Signed by Stoney Enamorado MD on 07/26 at 1051 RPT #:[id number] END OF REPORT 2023-02-20 09:59:00-00:00 [id number] [place] [address] PATIENT NAME: MARK ANTHONY LAMBERT ADMIT DATE: 02/20/23 ACCOUNT NO: [id number] ROOM NO: [facility] AGE: 87 REPORT TYPE: eELECTROCARDIOGRAM REPORT SEX: M ADMITTING PHYSICIAN:Stoney Enamorado MD ATTENDING PHYSICIAN:Stoney Enamorado MD Order: [id number] Test Reason : S P WATCHMAN Test Date/Time Stamp: SunFeb 20 2023 09:59:01 Blood Pressure : / mmHG Vent. Rate : 066 BPM Atrial Rate : 312 BPM P-R Int : 000 ms QRS Dur : 086 ms QT Int : 444 ms P-R-T Axes : 000 036 059 degree s QTc Int : 465 ms Atrial fibrillation Abnormal ECG Confirmed by MD JOYCE, DANIEL ([id number]) on 02/23/20 11:09:04 AM Referred By: Stoney Enamorado Confirmed by:DANIEL HESTER MD Electronically Signed by Daniel Clifford MD on 0 02/22/23 at 1109 PATIENT NAME: MARK ANTHONY LAMBERT ACCOUNT #: [id number] 2023-02-20 09:46:00-00:00 [id number] [place] [address] PATIENT NAME: MARK ANTHONY LAMBERT ADMIT DATE: 02/20/23 ACCOUNT NO: [id number] ROOM NO: [facility] AGE: 87 REPORT TYPE: OPERATIVE REPORT SEX: M ADMITTING PHYSICIAN:Stoney Enamorado MD ATTENDING PHYSICIAN:Stoney Enamorado MD OPERATION DATE: 02/20/2023 PREOPERATIVE DIAGNOSIS: POSTOPERATIVE DIAGNOSIS: SURGEON: PRODUCE DEPARTMENT MANAGER: ANESTHESIA: PROCEDURE PERFORMED: Left atrial appendage closu re using 27 mm Watchman FLX closure device. INDICATION: Atrial fibrillation with high CHADS- VASc score and GI bleed and unable to tolerate anticoagulant. ACCESS: Right femoral vein, 16-Portuguese, closed wi th [id number] suture. COMPLICATIONS: None. BLEEDING: Less than 100 mL. DESCRIPTION OF PROCEDURE: After risks, benefits, and alternatives were explained, the patient agreed to proceed and sig denita informed consent. The patient was brought into the cardiac catheteriza tion laboratory, prepped and draped in the usual sterile fashion. Then, I acc essed the right femoral vein using micropuncture kit and placed Portuguese 8-Fren ch Fenton sheath. At this time, JESSICA probe was inserted and JESSICA was performed and there was no thrombus and the appendage was suitable for closure. Then, I upgraded to 16-Portuguese Cook sheath and then I took SL1 s lilibeth into the SVC over a J wire, then put a Coy needle inside and gave parti al dose of heparin and I descended into interatrial septum under the fluoroscopy and JESSICA guidance an d in the low to mid end, posterior transseptal puncture was performed and measured LA pressure was 18 mmHg, then sent ProTrack wire into the l eft atrium, exchanged for the Watchman double curve sheath and then I took a pi gtail into the left atrium through the Watchman sheath and navigated that into the appe ndage and telescoped the Watchman sheath over it into the appendage and s ubsequently I performed appendage angiogram and dete rmined 27 mm will be suitable for closure. As such, device was de-aired in the usual sterile fashion and then pigtail was removed after good bleed back from t he sheath with a positive flush through the delivery system. Delivery system was advanced into the Wa tchman sheath and secured in PATIENT NAME: MARK ANTHONY LAMBERT place and then under the JESSICA guidance and fluoroscopy, the Watchman was deployed successfully. Then, PASS criteria were all evalu ated and there were met. As such, device was released in stable condition, then removed the Watchman sheath and delivery system inside, removed them completely out and then took the Cook sheath out and [id number] [id number] suture was used for closure with good hemostasis. Final JESSICA showed no pericardial effusion and go od position of the Watchman. CONCLUSION: Successful left atrial appendage dayanna sure using 27 mm Watchman FLX closure device. PLAN: Monitor for 5 hours and then remove the glaser tures and if there is no bleeding and the bedside ech o did not show significant effusion, the patient can be released home later today. Dictated By: Stoney Enamorado MD Date Dictated: 02/20/2023 09:46:28 Date Transcribed: 02/20/2023 11:33:39 /MELINDA Receipt ID: [id number] Authenticated by Stoney Enamorado MD On 03/13/2023 10:56:12 AM Electronically Signed by Stoney Enamorado MD on at 1056 PATIENT NAME: MARK ANTHONY LAMBERT ACCOUNT #: [id number] 2023-02-16 14:22:00-00:00 [facility] ([facility]) Hospitalist Consultation REPORT#:[id number] REPORT STATUS: Signed DATE:02/16/23 TIME: 1421 PATIENT: MARK ANTHONY LAMBERT UNIT #: [id number] ROOM/BED: : [birth year] AGE: 87 SEX: M ATTEND: Hossein Enamorado MD ADM AUTHOR: Yoly Lee MD * ALL edits or amendments must be made on the [employer] Charge/computer document * History of Present Illness Requesting Clinician: [facility] Chief complaint: recurrent falls PCP: PCP: Carloz Major MD HPI: 87-year-old male, med histor y significant for chronic tobacco use, DLD, HTN, and atrial fibrillation on chron ic anticoagulation, presents to [facility] for preauthorization for procedure on 02/20. Patient reports today that he is feels well, and asked questions on details of Watchman procedure. Per his report on 01/15 patient sustained a fall which caused trau matic rib fractures and subsequent splenic injury. 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 Since then no falls reported, patient continues to take anticoagulation. Denies any fever/chills, or any new issues today . History - Adult longitudinal Past medical history: Reports: Hypertension, Dyslipidemia. Alcohol use: Denies EtOH use Smoking status for patients 13 years old or olde r: Former Smoker Allergies: Coded Allergies: No Known Allergies (02/16/23) Review of Systems All systems rev neg: except as marked Objective General appearance: alert, awake, oriented Head/Eyes: atraumatic, normocephalic, PERRLA ENT: edentulous, moist mucosal membranes Cardiovascular: normal heart sounds, regular rat e rhythm Abdomen: non-tender, normal bowel sounds, soft, no distention Musculoskeletal: normal inspection Neuro/LINE SUPPLY: alert, oriented X 3, CNII-XII intact Skin: dry, intact, normal color, no rash Results Findings/Data: Laboratory Tests: 02/16 1131 Chemistry Sodium (134 - 147 mEq/L) 137 Potassium (3.4 - 5.0 mEq/L) 4.4 Chloride (100 - 108 mEq/L) 103 Carbon Dioxide (21 - 33 mEq/l) 26 Anion Gap (0 - 20) 13 BUN (7 - 18 mg/dL) 10 Creatinine (0.6 - 1.3 mg/dL) 1.0 Glomerular Filtr Rate (70 - 80) 72.4 Glucose (70 - 110 mg/dL) 96 Calcium (8.0 - 10.5 mg/dL) 9.7 Prealbumin (16.0 - 40.0 mg/dL) 19.7 Coagulation INR (0.8 - 1.2) 1.1 PT Patient/Control Mix (9.3 - 12.9 SECONDS) 12. 8 Hematology WBC (4.5 - 11.0 x10 3/uL) 9.3 RBC (4.00 - 5.60 x10 6/uL) 3.76 L Hgb (12.5 - 16.9 g/dL) 11.1 L Hct (37.5 - 50.7 %) 34.8 L MCV (81.0 - 99.0 fL) 92.6 MCH (27.0 - 33.0 pg) 29.5 MCHC (33.0 - 37.0 g/dL) 31.9 L RDW (11.5 - 14.5 %) 14.6 H Plt Count (150 - 400 x10 3/uL) 376 MPV (7.0 - 9.0 fL) 9.5 H Neut % (Auto) (56.0 - 77.0 %) 66.8 Lymph % (Auto) (14.0 - 32.0 %) 17.6 [place] % (Auto) (4.8 - 9.0 %) 11.7 H Eos % (Auto) (0.3 - 3.7 %) 2.6 Baso % (Auto) (0.0 - 2.0 %) 0.8 Neut # (Auto) (2.0 - 7.6 x10 3/uL) 6.20 Lymph # (Auto) (1.0 - 3.8 x10 3/uL) 1.63 [place] # (Auto) (0.1 - 0.8 x10 3/uL) 1.09 H Eos # (Auto) (0.0 - 0.2 x10 3/uL) 0.24 H Baso # (Auto) (0.0 - 0.2 x10 3/uL) 0.07 Abs Immat Gran (auto) (0.00 - 0.03 x10 3/uL) 0 .05 H Add Manual Diff NO Immature Gran % (0.0 - 2.0 %) 0.5 Nucleated RBC % (0 - 0 %) 0.0 Nucleated RBCs # (Man) (0.0 - 0.1 x10 3/uL) 0.0 0 Radiology data: Recent Impressions: RADIOLOGY - XR CHEST 2 V 02/16 1136 Report Impression - Status: SIGNED Entered: 02/16/2023 1156 IMPRESSION: No acute cardiopulmonary findings. 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 1 atrial fibrillation Preauthorization documents signed for Watchman procedure Medications reviewed Patient evaluated/counseled on benefits of proc edure. at 1427 RPT #:[id number] END OF REPORT
[2023-03-31 14:06] LABS: Protime INR 1.4
[2023-03-31 14:10] LABS: Absolute Lymphocytes (CBC) 0.8 K/uL (0.7-4.9); Hematocrit 32.5 % (39.6-49.0); Lymphocytes % 9.7 % (15.3-44.8); MCV 84.4 fL (80-100); MPV 7.2 fL (7.6-11.3); RBC Red Blood Cell Count 3.85 M/uL (4.33-5.43)
[2023-03-31 14:15] LABS: Albumin 2.7 g/dL (3.4-5.0); Bilirubin Total 0.6 mg/dL (0.2-1.0); Potassium 3.4 mEq/L (3.5-5.1); Protein, Total 6.6 g/dL (6.4-8.2)
[2023-03-31 14:44] LABS: Blood Morphology Comment NOT SEEN (NOT SEEN); Platelet Estimate INCR; White Blood Cell Scan OK (OK)
--- NOTE | 2023-03-31 14:50 | RAD REPORT ---
EXAM DESCRIPTION: RAD - Chest Single View - 03/31/2023 2:43 pm CLINICAL HISTORY: FEVER Chest pain. COMPARISON: Chest Single View dated 06/28/2022 FINDINGS: Portable technique limits examination quality. The lungs are grossly clear. The heart is mildly enlarged in size. No displaced fractures. IMPRESSION: No acute intrathoracic process suspected.
--- NOTE | 2023-03-31 17:28 | RAD REPORT ---
EXAM DESCRIPTION: CTAbdomen Pelvis W Contrast - 03/31/2023 5:19 pm CLINICAL HISTORY: Abdominal pain. fever;Abd pain COMPARISON: No comparisons TECHNIQUE: Biphasic CT imaging of the abdomen and pelvis was performed with 100 ml non-ionic IV cont rast. All CT scans are performed using dose optimization technique as appropriate and may include automated exposure control or mA/KV adjustment according to patient size. FINDINGS: The lung bases are clear. The liver, spleen, pancreas, adrenal glands and right kidney are within normal limits. The urinary bladder appears quite dilated. The prostate gland is enlarged. There is significant enhan cement of the bladder wall as well as the wall of the left ureter. Left ureter shows mild hydroureter . Perinephric stranding is seen left kidney which also shows renal pelvis enhancement. Early pyelonep hritis suspected. Appendicolith. No evidence of significant lymphadenopathy. No suspicious bony findings. IMPRESSION: There is evidence of significant cystitis as well as ascending infection involving the l eft ureter and high likelihood of early left pyelonephritis. There is also moderate right hydronephro sis and hydroureter. Given the enlarged prostate, this may be result of bladder outlet obstruction.
--- NOTE | 2023-03-31 17:39 | ER ---
Nurse's Notes [facility] Name: Lauri Lambert Age: 87 yrs Sex: Male : 1935 Arrival Date: 03/31/2023 Time: 12:13 Bed 17 Private MD: Diagnosis: Pyelonephritis acute;Fever, unspecified;Hematuria, unspecified Presentation: 03/31 12:16 Chief complaint: EMS states: toned out to patient home for fever, possible dehydration. ld1 Coronavirus screen: At this time, the client does not indicate any symptoms associated with coronavirus-19. Ebola Screen: No symptoms or risks identified at this time. Initial Sepsis Screen: Does the patient meet any 2 criteria? No. Patient's initial sepsis screen is negative. Does the patient have a suspected source of infection? No. Patient's initial sepsis screen is negative. Risk Assessment: Do you want to hurt yourself or someone else? Patient reports no desire to harm self or others. Onset of symptoms was March 31, 2023 at 12:18. 12:16 Method Of Arrival: EMS: [facility] ld1 12:16 Acuity: HAYDER 3 ld1 Triage Assessment: 12:18 General: Appears in no apparent distress. comfortable, Behavior is calm, cooperative, ld1 appropriate for age. Pain: Denies pain. EENT: No signs and/or symptoms were reported regarding the EENT system. Neuro: Level of Consciousness is awake, alert, obeys commands, Oriented to person, place, time, situation. Cardiovascular: Capillary refill < 3 seconds Patient's skin is warm and dry. Rhythm is atrial fibrillation. Respiratory: Airway is patent Respiratory effort is even, unlabored. GI: Abdomen is flat, non-distended. : No signs and/or symptoms were reported regarding the genitourinary system. Derm: Skin temperature is hot. Musculoskeletal: No signs and/or symptoms reported regarding the musculoskeletal system. Historical: - Allergies: 12:18 No Known Allergies; ld1 - PMHx: 12:18 Atrial fibrillation; diabetes mellitus; Hypertensive disorder; Hypothyroidism; BPH; CHF;ld1 - PSHx: 12:18 Appendectomy; knee replacement, left; ld1 - Immunization history:: Adult Immunizations up to date, Client reports receiving the 2nd dose of the Covid vaccine. - Social history:: Smoking status: Patient denies any tobacco usage or history of. Patient/guardian denies using alcohol. Screenin:20 [facility] ED Fall Risk Assessment (Adult) History of falling in the last 3 months, ld1 including since admission No falls in past 3 months (0 pts). Abuse screen: Denies threats or abuse. Denies injuries from another. Nutritional screening: No deficits noted. Tuberculosis screening: No symptoms or risk factors identified. Assessment: 12:20 Reassessment: See triage assessment. ld1 13:59 Reassessment: Patient appears in no apparent distress at this time. No changes from ld1 previously documented assessment. Patient and/or family updated on plan of care and expected duration. Pain level reassessed. Patient is alert, oriented x 3, equal unlabored respirations, skin warm/dry/pink. 20:05 Reassessment: Patient and/or family updated on plan of care and expected duration. Pain ha1 level reassessed. Patient is alert, oriented x 3, equal unlabored respirations, skin warm/dry/pink. notified DR. Tucker of abnormal vitals. 21:00 Reassessment: Patient and/or family updated on plan of care and expected duration. Pain ha1 level reassessed. Patient is alert, oriented x 3, equal unlabored respirations, skin warm/dry/pink. Patient states feeling better. Patient states symptoms have improved. 22:00 Reassessment: Patient and/or family updated on plan of care and expected duration. Pain ha1 level reassessed. Patient is alert, oriented x 3, equal unlabored respirations, skin warm/dry/pink. 22:45 Reassessment: Patient and/or family updated on plan of care and expected duration. Pain ha1 level reassessed. Patient is alert, oriented x 3, equal unlabored respirations, skin warm/dry/pink. attempted to give report. Vital Signs: 12:16 BP 143 / 81; Pulse 81; Resp 18; Temp 103.1(O); Pulse Ox 95% on R/A; Weight 72.5 kg; ld1 Height 5 ft. 10 in. ; Pain 0/10; 13:17 BP 105 / 58; Pulse 84; Resp 18; Pulse Ox 97% on R/A; ld1 14:06 BP 107 / 57; Pulse 74; Resp 18; Pulse Ox 96% on R/A; ld1 15:27 BP 108 / 65; Pulse 74; Resp 18; Temp 97.5(O); Pulse Ox 99% ; ld1 16:27 BP 125 / 55; Pulse 71; Resp 18; Pulse Ox 99% on R/A; ld1 18:28 BP 137 / 64; Pulse 79; Resp 18; Pulse Ox 100% on R/A; ld1 20:05 BP 195 / 105; Pulse 133; Resp 22 S; Temp 100.8; Pulse Ox 92% on R/A; ha1 21:05 BP 111 / 59; Pulse 85; Resp 20 S; Temp 99.2(O); Pulse Ox 98% on 2 lpm NC; ha1 21:33 BP 84 / 49; Pulse 85; Resp 18 S; Pulse Ox 98% on 2 lpm NC; ha1 21:36 BP 93 / 49; Pulse 83; Resp 18 S; Pulse Ox 98% on 2 lpm NC; ha1 22:27 BP 97 / 51; Pulse 72; Resp 18 S; Pulse Ox 100% on 2 lpm NC; ha1 12:16 Body Mass Index 22.93 (72.50 kg, 177.8 cm) ld1 12:16 Pain Scale: Adult ld1 ED Course: 12:16 Patient arrived in ED. ld1 12:18 Triage completed. ld1 12:18 Arm band placed on right wrist. ld1 12:20 Patient has correct armband on for positive identification. Placed in gown. Bed in low ld1 position. Call light in reach. Side rails up X2. front desk monitor on. Pulse ox on. Sitter at bedside. Door closed. Noise minimized. Warm blanket given. 12:20 No provider procedures requiring assistance completed. Maintain EMS IV. Dressing ld1 intact. Good blood return noted. Site clean \T\ dry. Gauge \T\ site: 20G LW. 12:21 Gustavo Grey DO is Attending Physician. ms3 12:23 Marta Grey, SAVANA is Primary Nurse. ld1 13:59 Inserted saline lock: 20 gauge in right antecubital area, using aseptic technique. ld1 Blood collected. 14:45 Chest Single View XRAY In Process Unspecified. EDMS 17:06 Urinalysis w/ reflexes Sent. ld1 17:21 CT Abd/Pelvis - IV Contrast Only In Process Unspecified. EDMS 17:38 Cameron Bishop is Hospitalizing Provider. ms3 19:02 Attending Physician role handed off by Gustavo Grey DO sp4 19:02 Deny Ross MD is Attending Physician. sp4 20:17 transfer initiated to [facility], denied due to full capacity. mc5 20:30 Transfer initiated to [facility]. mc5 22:15 Patient accepted to [facility] room [address] Ricketts. mc5 22:30 [facility] contacted to request transport, accepted with 25 min ETA. mc5 Administered Medications: 13:26 Drug: Acetaminophen PO 1000 mg Route: PO; ld1 17:58 Drug: Rocephin IV 1 grams Route: IV; Rate: calculated rate; Site: right antecubital; ld1 17:58 Drug: Lactated Ringers Solution IV 1000 ml Route: IV; Rate: bolus; Site: right ld1 antecubital; 20:20 Drug: Acetaminophen PO 1000 mg Route: PO; ha1 20:20 Drug: Ibuprofen PO 800 mg Route: PO; ha1 20:22 Drug: NS 0.9% IV 1000 ml Route: IV; Rate: 125 ml/hr; Site: right antecubital; ha1 20:22 Drug: Piperacillin-Tazobactam IVPB 3.375 grams Route: IVPB; Infused Over: 60 mins; ha1 Site: right antecubital; 21:47 Drug: Albumin IVPB 25 grams Volume: 100 ml; Route: IVPB; Site: left forearm; ha1 21:47 Drug: NS 0.9% IV 1000 ml Route: IV; Rate: 1 bolus; Site: left femoral; ha1 21:47 Drug: Albumin IVPB 25 grams Volume: 100 ml; Route: IVPB; Site: left forearm; ha1 Outcome: 17:39 Decision to Hospitalize by Provider. ms3 18:55 ER care complete, transfer ordered by . ms3 23:16 Patient left the ED. ha1 Signatures: Dispatcher [employer] EDMS Gustavo Grey DO DO ms3 Marta Grey RN RN ld1 Jaymie Kim RN RN ha1 Deny Ross MD MD 4 Betty Musa mc5 Corrections: (The following items were deleted from the chart) 21:32 20:05 BP 195 / 105; Pulse 133bpm; Resp 22bpm; Spontaneous; Pulse Ox 92% RA; ha1 ha1
[2023-03-31 17:40] LABS: Specific Gravity 1.008 (1.005-1.030); Urine Bacteria 20-50 /HPF (<20); Urine Bilirubin NEGATIVE (Negative); Urine Blood 3+ (OVER) (Negative); Urine Clarity Extremely Turbid (Clear); Urine Color Light-Orange (Yellow); Urine Glucose NEGATIVE (Negative); Urine Mucus Slight /HPF (None Seen); Urine Protein TRACE (Negative); Urine RBC >50 /HPF (None Seen); Urine Urobilinogen Normal (Normal); Urine WBC Clump Many /HPF (None Seen); Urine pH 5.5 (5.0-7.0)
--- NOTE | 2023-03-31 17:40 | EDPHYS ---
Physician Documentation [facility] Name: Lauri Lambert Age: 87 yrs Sex: Male : 1935 Arrival Date: 03/31/2023 Time: 12:13 Bed 17 Private MD: ED Physician Deny Ross HPI: 03/31 17:35 This 87 yrs old Male presents to ER via EMS with complaints of Fever. ms3 17:35 87-year-old male with past medical history of atrial fibrillation, diabetes, ms3 hypertension, hypothyroidism presents via [facility] for fever. EMS noted patient's temperature to be 103. Patient denies abdominal pain, chills, nausea, vomiting, cough.. Historical: - Allergies: 12:18 No Known Allergies; ld1 - PMHx: 12:18 Atrial fibrillation; diabetes mellitus; Hypertensive disorder; Hypothyroidism; BPH; CHF;ld1 - PSHx: 12:18 Appendectomy; knee replacement, left; ld1 - Immunization history:: Adult Immunizations up to date, Client reports receiving the 2nd dose of the Covid vaccine. - Social history:: Smoking status: Patient denies any tobacco usage or history of. Patient/guardian denies using alcohol. ROS: 17:35 Constitutional: Negative for fever, and chills. Neck: Negative for injury, pain, and ms3 swelling, Cardiovascular: Negative for chest pain, and palpitations. Respiratory: Negative for shortness of breath, cough, wheezing, and pleuritic chest pain, Abdomen/GI: Negative for abdominal pain, nausea, vomiting, diarrhea, and constipation, MS/Extremity: Negative for injury and deformity, Skin: Negative for injury, rash, and discoloration. 17:35 All other systems are negative. Exam: 17:35 Constitutional: This is a well developed, well nourished patient who is awake, alert, ms3 and in no acute distress. Head/Face: Normocephalic, atraumatic. Neck: Trachea midline, no cervical lymphadenopathy. Supple, full range of motion without nuchal rigidity, or vertebral point tenderness. No Meningismus. Chest/axilla: Normal chest wall appearance and motion. Nontender with no deformity. Cardiovascular: Regular rate and rhythm with a normal S1 and S2. No gallops, murmurs, or rubs. Normal PMI, no JVD. No pulse deficits. Respiratory: Lungs have equal breath sounds bilaterally, clear to auscultation and percussion. No rales, rhonchi or wheezes noted. No increased work of breathing, no retractions or nasal flaring. 17:35 Skin: Warm, dry with normal turgor. Normal color with no rashes, no lesions, and no evidence of cellulitis. MS/ Extremity: Pulses equal, no cyanosis. Neurovascular intact. Full, normal range of motion. 17:35 Abdomen/GI: Palpation: mild abdominal tenderness, in the right lower quadrant and left lower quadrant, Healing midline incision. 17:46 ECG was reviewed by the Attending Physician. ms3 Vital Signs: 12:16 BP 143 / 81; Pulse 81; Resp 18; Temp 103.1(O); Pulse Ox 95% on R/A; Weight 72.5 kg; ld1 Height 5 ft. 10 in. ; Pain 0/10; 13:17 BP 105 / 58; Pulse 84; Resp 18; Pulse Ox 97% on R/A; ld1 14:06 BP 107 / 57; Pulse 74; Resp 18; Pulse Ox 96% on R/A; ld1 15:27 BP 108 / 65; Pulse 74; Resp 18; Temp 97.5(O); Pulse Ox 99% ; ld1 16:27 BP 125 / 55; Pulse 71; Resp 18; Pulse Ox 99% on R/A; ld1 18:28 BP 137 / 64; Pulse 79; Resp 18; Pulse Ox 100% on R/A; ld1 20:05 BP 195 / 105; Pulse 133; Resp 22 S; Temp 100.8; Pulse Ox 92% on R/A; ha1 21:05 BP 111 / 59; Pulse 85; Resp 20 S; Temp 99.2(O); Pulse Ox 98% on 2 lpm NC; ha1 21:33 BP 84 / 49; Pulse 85; Resp 18 S; Pulse Ox 98% on 2 lpm NC; ha1 21:36 BP 93 / 49; Pulse 83; Resp 18 S; Pulse Ox 98% on 2 lpm NC; ha1 22:27 BP 97 / 51; Pulse 72; Resp 18 S; Pulse Ox 100% on 2 lpm NC; ha1 12:16 Body Mass Index 22.93 (72.50 kg, 177.8 cm) ld1 12:16 Pain Scale: Adult ld1 MDM: 12:21 Patient medically screened. ms3 17:35 Differential diagnosis: viral Infection, bacterial infection, URI, pneumonia UTI. Data ms3 reviewed: vital signs, nurses notes, lab test result(s), radiologic studies, and as a result, I will admit patient. Consideration of Admission/Observation Patient was admitted/placed on observation. Management of patient was discussed with the following: Hospitalist: Dr Bishop. I considered the following discharge prescriptions or medication management in the emergency department Medications were administered in the Emergency Department. See MAR. Historians other than the Patient: EMS: [facility]. Daughter/Son: Patient's daughter. Counseling: I had a detailed discussion with the patient and/or guardian regarding: the historical points, exam findings, and any diagnostic results supporting the discharge/admit diagnosis, lab results, radiology results, the need for further work-up and treatment in the hospital. 18:55 ED course: Dr Bishop states patient will require Urology and [facility] does not have [facility] Urology at this time. Will initiate transfer. Will update family on disposition change.. 19:00 ED course: Patient's family requests [facility] as patient's PMD is located there.. ms3 22:10 ED course: Medications at home - Glucophage Oral 500 mg; Klor-Con M20 20 mEq Oral sp4 Tablet, ER Particles/Crystals; Lasix 20 mg Oral tablet; Levoxyl 125 mcg Oral tablet; lisinopril 40 mg Oral tablet; Norvasc 5 mg Oral tablet; simvastatin 40 mg Oral tab; Xarelto 15 mg Oral tab 1 tab;. ED course: Patient was discussed extensively with urologist and funeral pre arrangement counselor at [facility]. Patient accepted to [facility]. Patient at this time needs to remain n.p.o. based on Urology recommendation. 03/31 13:15 Order name: Blood Culture Adult (2) ms3 03/31 13:15 Order name: CBC with Diff; Complete Time: 14:52 ms3 03/31 13:15 Order name: CMP; Complete Time: 14:32 nd3 03/31 13:15 Order name: Lactate w/ 2H reflex if indic.; Complete Time: 14:32 nd3 03/31 13:15 Order name: Protime (+inr); Complete Time: 14:32 ms3 03/31 13:15 Order name: Ptt, Activated; Complete Time: 14:32 ms3 03/31 14:14 Order name: CBC Smear Scan; Complete Time: 14:52 EDMS 03/31 14:33 Order name: Flu; Complete Time: 15:58 ms3 03/31 14:33 Order name: COVID-19 SARS RT PCR; Complete Time: 15:58 ms3 03/31 16:10 Order name: Urinalysis w/ reflexes; Complete Time: 17:47 ms3 03/31 17:44 Order name: Urine Culture EDMS 03/31 13:15 Order name: Chest Single View XRAY; Complete Time: 14:52 ms3 03/31 16:11 Order name: CT Abd/Pelvis - IV Contrast Only; Complete Time: 17:31 ms3 03/31 13:15 Order name: EKG; Complete Time: 13:15 ms3 03/31 13:15 Order name: Accucheck; Complete Time: 13:16 ms3 03/31 13:15 Order name: Cardiac monitoring; Complete Time: 13:16 ms3 03/31 13:15 Order name: EKG - Nurse/Tech; Complete Time: 13:59 ms3 03/31 13:15 Order name: IV Saline Lock - Large Bore; Complete Time: 13:59 ms3 03/31 13:15 Order name: Labs collected and sent; Complete Time: 13:59 ms3 03/31 13:15 Order name: O2 Per Protocol; Complete Time: 13:16 ms3 03/31 13:15 Order name: O2 Sat Monitoring; Complete Time: 13:16 ms3 03/31 13:15 Order name: Vital Signs; Complete Time: 13:16 ms3 03/31 20:33 Order name: Brennan; Complete Time: 20:48 sp4 03/31 21:52 Order name: NPO; Complete Time: 22:21 sp4 EC:46 Rate is 83 beats/min. Rhythm is irregularly irregular. QRS [place] is Normal. QRS interval ms3 is normal. Clinical impression: Atrial Fibrillation. Interpreted by me. Reviewed by me. Administered Medications: 13:26 Drug: Acetaminophen PO 1000 mg Route: PO; ld1 17:58 Drug: Rocephin IV 1 grams Route: IV; Rate: calculated rate; Site: right antecubital; ld1 17:58 Drug: Lactated Ringers Solution IV 1000 ml Route: IV; Rate: bolus; Site: right ld1 antecubital; 20:20 Drug: Acetaminophen PO 1000 mg Route: PO; ha1 20:20 Drug: Ibuprofen PO 800 mg Route: PO; ha1 20:22 Drug: NS 0.9% IV 1000 ml Route: IV; Rate: 125 ml/hr; Site: right antecubital; ha1 20:22 Drug: Piperacillin-Tazobactam IVPB 3.375 grams Route: IVPB; Infused Over: 60 mins; ha1 Site: right antecubital; 21:47 Drug: Albumin IVPB 25 grams Volume: 100 ml; Route: IVPB; Site: left forearm; ha1 21:47 Drug: NS 0.9% IV 1000 ml Route: IV; Rate: 1 bolus; Site: left femoral; ha1 21:47 Drug: Albumin IVPB 25 grams Volume: 100 ml; Route: IVPB; Site: left forearm; ha1 Disposition Summary: 03/31/23 18:55 Transfer Ordered Reason: Higher level of care ms3 Condition: Stable(03/31/23 18:55) ms3 Problem: new(03/31/23 18:55) ms3 Symptoms: are unchanged(03/31/23 18:55) ms3 Transfer Location: [facility](03/31/23 22:12) sp4 Accepting Physician: Dr Alfred with [facility](03/31/23 23:16) ha1 Diagnosis - Pyelonephritis acute(03/31/23 18:55) ms3 - Fever, unspecified(03/31/23 18:55) ms3 - Hematuria, unspecified(03/31/23 18:55) ms3 Forms: - Medication Reconciliation Form ms3 - SBAR form ms3 Signatures: Dispatcher [employer] EDMS Gustavo Grey DO DO ms3 Marta Grey RN RN ld1 Jaymie Kim RN RN ha1 Deny Ross MD MD sp4 Corrections: (The following items were deleted from the chart) 18:54 17:39 Inpatient Admission ms3 ms3 18:54 17:39 Cameron Bishop ms3 ms3 18:54 17:39 Telemetry/MedSurg (Inpatient) ms3 ms3 18:54 17:39 Stable ms3 ms3 18:54 17:39 new ms3 ms3 18:54 17:39 are unchanged ms3 ms3 18:54 17:39 Standard ms3 ms3 18:54 17:39 ms3 ms3 18:54 17:39 Pyelonephritis acute ms3 ms3 18:54 17:39 Fever, unspecified ms3 ms3 18:54 17:39 Hematuria, unspecified ms3 ms3 18:59 18:55 ms3 ms3 18:59 18:55 [facility] ms3 ms3 22:12 18:59 ms3 sp4 22:12 18:59 [facility] ms3 sp4 23:16 22:12 Dr Alfred with [facility] sp4 ha1
[2023-03-31] MEDS ORDERED: CEFTRIAXONE 1000 MG/VIAL ONE (18:00)
[2023-03-31] MEDS ORDERED: Ringers Lactate 1,000 ML IV ONE (18:00)
[2023-03-31] MEDS ORDERED: NA CHLORIDE 0.9% 100 ML ONE (20:38)
[2023-03-31] MEDS ORDERED: IBUPROFEN 400 MG TAB ONE (20:38)
[2023-03-31] MEDS ORDERED: ACETAMINOPHEN 500 MG TAB ONE (20:38)
[2023-03-31] MEDS ORDERED: NA CHLORIDE 0.9% 1,000 ML ONE ×2 (20:39→21:57)
[2023-03-31] MEDS ORDERED: PIPERACIL/TAZO 3.375 GM VIAL IV ONE (20:39)
[2023-03-31] MEDS ORDERED: ALBUMIN HUMAN 25% 200 ML IV ONE (21:57)
[2023-03-31 23:32] VITALS: TEMP 99.2
[2023-03-31 23:37] VITALS: BP 97/51; O2SAT 100
--- NOTE | 2023-04-01 13:11 | EKG ---
Test Date: 2023-03-31 Test Time: 13:39:58 [facility] Teacher: Miguel Ángel REGAN MEASUREMENT RESULTS: Intervals: Rate: 83 [place]: QRSD: 88 QT: 404 QTc: 474 [place]: P: [place]: QRS: 60 T: 56 INTERPRETIVE STATEMENTS: Atrial fibrillation Abnormal ECG Compared to ECG 01/17/2023 10:30:30 No significant changes Electronically Signed On 04-01-23 13:10:22 CDT by Stoney Enamorado
== END 2023-03-31 23:16 | disposition short-term general hospital (02) ==
LOC: ER 12:13
DX: N10 Acute pyelonephritis (principal); R31.9 Hematuria, unspecified; I10 Essential (primary) hypertension; I48.91 Unspecified atrial fibrillation; Z20.822 Contact with and (suspected) exposure to COVID-19
CPT/HCPCS: 93005; 87040 ×2; 87088; 85025; 81001; 87086; 36415; 85610; 83605; 85730; 80053; 87635; 87804 ×2; 74177; 71045; 99285; Q9967; J2543; P9047; J7120; J7030 ×2; J0696; 87077; 87186